=== PATIENT | female | born 1985 ===

== ENCOUNTER 2017-01-14 12:26 | Emergency (ER) | payer SELFPAY ==
[2017-01-14 16:13] LABS: Hematocrit 43 % (35-47); Hemoglobin 14.5 g/dl (12.0-16.0); Mean Corpuscular HGB Conc 34 g/dl (31-36); Mean Corpuscular Hemoglobin 29 pg (27-31); Mean Corpuscular Volume 87 fL (80-97); Mean Platelet Volume 8 um3 (7.4-10.4); Red Blood Count 4.97 10^6/ul (4.0-5.4); Red Cell Distribution Width 13 % (10.5-15)
[2017-01-14 16:20] LABS: BUN/Creatinine Ratio 15.4 (8-20); Calcium 9.6 mg/dL (8.6-10.3); EGFR African American 138.6 (>60); EGFR Non-African American 107.8 (>60); Potassium 3.8 mmol/L (3.5-5.0)
[2017-01-14] MEDS ORDERED: Ondansetron INJ* 2 MG/ML VIAL IV ONE (16:41)
[2017-01-14] MEDS ORDERED: NS 0.9% 1000 ML* 1,000 ML IV ONE (16:42)
[2017-01-14] MEDS ORDERED: Acetaminophen TAB* 325 MG PO ONE (16:42)
--- NOTE | 2017-01-14 16:51 | ED ---
- HPI Summary HPI Summary: 31 female presents complaining of lower abdominal/pelvic pain and vaginal bleeding that began yesterday 01/13/17 around 4pm. Patient speaks Pashto however has an bilingual operator with her. The bleeding began as drops and has progressed into heavier bleeding where she is soaking through a pad every hour. Patient denies seeing any clots or tissue. Just describes it as bright red blood. Describes the abdominal pain to be lower supra-pubic cramping, similar to contractions. Has not taken anything for the pain. Has a history of 2 prior miscarriages. Her LMP was 11/01/16. She took ~5 at-home tests that were all positive within the last few weeks/month. She does not have an OBGYN and has not established Obgyn care. Also complaining of lightheadedness and nausea. Pain is about a 5/10. Last miscarriage was ~4 months ago however she did not seek care at this time. - History of Current Complaint Chief Complaint: EDVaginalBleeding Stated Complaint: POSSIBLE 2 MONTHS PREG , ABD PAIN, Time Seen by Provider: 01/14/17 16:24 Hx Obtained From: Patient, Case Manager - friend of patient Chief Complaint: Pain, Vaginal Bleeding Onset/Duration: Started Hours Ago - around 1600 on 01/13/17 Timing: Constant Severity: Moderate Current Severity: Moderate Pain Intensity: 5 Location of Pain: Suprapubic Character: Cramping Associated Signs and Symptoms: Positive: Nausea, Vaginal Bleeding or Discharge - Assessment Hx Now: No - Beta Quant HCG was negative Vaginal Bleeding Amount: Large Hx Last Menstrual Period: 11/01/16 Contraction Intensity: Moderate Contraction Pattern: Regular - Allergies/Home Medications Allergies/Adverse Reactions: Allergies Allergy/AdvReac Type Severity Reaction Status Date / Time No Known Allergies Allergy Verified 06/13/13 18:35 PMH/Surg Hx/FS Hx/Imm Hx Endocrine/Hematology History: Denies: Hx Diabetes, Hx Anemia Cardiovascular History: Denies: Hx Hypertension Respiratory History: Denies: Hx Asthma - Surgical History Surgery Procedure, Year, and Place: abd surgery Infectious Disease History: No Infectious Disease History: Denies: Hx Clostridium Difficile, History Other Infectious Disease, Traveled Outside the [place] in Last 30 Days - Family History Known Family History: Positive: Unknown - Social History Substance Use Type: Reports: None Smoking Status (MU): Never Smoked Tobacco Review of Systems Constitutional: Negative Eyes: Negative ENT: Negative Cardiovascular: Negative Respiratory: Negative Positive: Abdominal Pain, Nausea Positive: see HPI, other - vaginal bleeding Musculoskeletal: Negative Skin: Negative Neurological: Other - lightheadedness Psychological: Normal All Other Systems Reviewed And Are Negative: Yes Physical Exam - Physical Exam Triage Information Reviewed: Yes Vital Signs Reviewed: Yes Appearance: Positive: Well-Appearing, No Pain Distress, Well-Nourished Skin: Positive: Warm, Skin Color Reflects Adequate Perfusion, Dry Head/Face: Positive: Normal Head/Face Inspection Eyes: Positive: Normal, EOMI, DIOGO, Conjunctiva Clear ENT: Positive: Hearing grossly normal Dental: Negative: Cervical Lymphadenopathy Neck: Positive: Supple, Nontender, No Lymphadenopathy Respiratory/Lung Sounds: Positive: Clear to Auscultation, Breath Sounds Present Cardiovascular: Positive: Normal, RRR, Pulses are Symmetrical in both Upper and Lower Extremities Abdomen Description: Positive: No Organomegaly, Soft, Other: - discomfort on deep palpation of lower abdomen, suprapubic. Negative: Distended, Guarding, Peritoneal Signs Bowel Sounds: Positive: Present Musculoskeletal: Positive: Normal, Strength/ROM Intact Neurological: Positive: Normal, Sensory/Motor Intact, Alert, Oriented to Person Place, Time, CN Intact II-III Psychiatric: Positive: Normal Diagnostics - Vital Signs Vital Signs Temp Pulse Resp BP Pulse Ox 01/14/17 14:49 98.3 F 67 18 116/80 100 01/14/17 12:29 98.7 F 65 16 103/52 100 - Laboratory Lab Results: Lab Results 01/14/17 01/14/17 Range/Units 15:55 15:55 WBC 12.0 H (3.5-10.8) 10^3/ul RBC 4.97 (4.0-5.4) 10^6/ul Hgb 14.5 (12.0-16.0) g/dl Hct 43 (35-47) % MCV 87 (80-97) fL MCH 29 (27-31) pg MCHC 34 (31-36) g/dl RDW 13 (10.5-15) % Plt Count 403 (150-450) 10^3/ul MPV 8 (7.4-10.4) um3 Sodium 136 (133-145) mmol/L Potassium 3.8 (3.5-5.0) mmol/L Chloride 102 (101-111) mmol/L Carbon Dioxide 29 (22-32) mmol/L Anion Gap 5 (2-11) mmol/L BUN 10 (6-24) mg/dL Creatinine 0.65 (0.51-0.95) mg/dL Est GFR ( Amer) 138.6 (>60) Est GFR (Non-Af Amer) 107.8 (>60) BUN/Creatinine Ratio 15.4 (8-20) Glucose 93 (70-100) mg/dL Calcium 9.6 (8.6-10.3) mg/dL Beta HCG, Quant 0.75 mIU/mL Result Diagrams: 01/14/17 15:55 01/14/17 15:55 Lab Statement: Any lab studies that have been ordered have been reviewed, and results considered in the medical decision making process. - Ultrasound No standard instances Ultrasound Interpretation: No Acute Changes - NO INTRAUTERINE GESTATION IS IDENTIFIED AND THEREFORE IN THE SETTING OF A POSITIVE TEST ECTOPIC IS NOT EXCLUDED. THERE IS NO ADNEXAL MASS IDENTIFIED. SUGGEST CORRELATION WITH SERIAL BETA HCGS AND FOLLOW-UP ULTRASONOGRAPHY INDICATED Ultrasound Interpretation Completed By: Radiologist Re-Evaluation - Re-Evaluation First Eval Re-Evaluation Time: 16:50 Change: Improved Comment: feeling better after fluids, tylenol and zofran Course/Dx - Course Course Of Treatment: lab work, type and screen, beta HCG quant and pelvic exam completed. US was negative for fetus. HCG quant was negative. type + blood. given fluids, tylenol and zofran for pain, nausea and lightheadedness. patient had significant improvement of all symptoms after treatment. Patient's last miscarriage was approximately 4 months ago. OBGYN was consulted Dr Hurd who states she beleives this is just her menstrual cycle and she was never pregnacnt due to her negative HCG and US. Upon obtaining history of 5 positive tests, LMP 11/01/16 and PE findings spontaneous is not completely ruled out however, treatment will be the same. told to continue taking OTC pain releivers, and drink plenty of fluids. also told to eat foods containing iron and to follow up with PCP or obgyn. aware of worseing signs and symptoms to watch out for. - Differential Diagnosis/HQI/PQRI: Spontaneous , Vaginal Bleeding, Other: - menses - Diagnoses Provider Diagnoses: Vaginal bleeding, Menses, irregular, Miscarriage within last 12 months - Provider Notifications Discussed Care Of Patient With: Dr Hurd, OBGYN states this is probably just her menses due to negative hcg quant and us to follow up with obgyn Time Discussed With Above Provider: 19:10 Discharge - Discharge Plan Condition: Stable Disposition: HOME Patient Education Materials: Miscarriage (ED), Menstruation (ED) Referrals: Ashleigh Aranda PA [Primary Care Provider] - Additional Instructions: Take OTC Tylenol, Ibuprofen or Aleve to help with the cramps and abdominal pain. Drink plenty of fluids and eat lots of food with iron such as red meat and leafy greens. If new symptoms develop or symptoms worsen such as heavy bleeding, feeling lightheaded, passing out or feeling sick please seek medical attention promptly. Follow-up with OBGYN for further evaluation is recommended. Physical Exam - Physical Exam Pelvic Exam: external exam normal, no masses, active bleeding - coming from cervical os
--- NOTE | 2017-01-14 17:46 | RAD ---
INDICATION: 10 week gestation with bleeding COMPARISON: None TECHNIQUE: Transvaginal scanning of the pelvis was performed for evaluation FINDINGS: There is no sonographically identifiable intrauterine gestation. The endometrial stripe measures 0.5 cm Both adnexa appear normal. There is no adnexal mass. The right ovary measures 3.2 x 2.0 x 1.6 cm and the left 3.6 x 1.6 x 1.8 cm. There is no free fluid. IMPRESSION: NO INTRAUTERINE GESTATION IS IDENTIFIED AND THEREFORE IN THE SETTING OF A POSITIVE TEST ECTOPIC IS NOT EXCLUDED. THERE IS NO ADNEXAL MASS IDENTIFIED. SUGGEST CORRELATION WITH SERIAL BETA HCGS AND FOLLOW-UP ULTRASONOGRAPHY INDICATED
[2017-01-14 19:36] VITALS: BP 110/78
== END 2017-01-14 19:35 | disposition home or self-care (01) ==
LOC: ED 12:26
DX: N93.8 Other specified abnormal uterine and vaginal bleeding (principal)
CPT/HCPCS: 36415; 76817; 80048; 84702; 85027; 86850; 86900; 86901; 96360; 96374; 99284; A9270-GY; J2405

== ENCOUNTER 2017-06-11 05:24 | Inpatient (IN) | payer MEDICAID ==
[2017-06-11] MEDS ORDERED: NS 0.9% 1000 ML* 1,000 ML IV ONE (05:35)
[2017-06-11] MEDS ORDERED: Ondansetron INJ* 2 MG/ML VIAL IV ONE ×2 (05:35→08:48)
[2017-06-11 06:02] LABS: Hematocrit 38 % (35-47); Hemoglobin 13.2 g/dl (12.0-16.0); Mean Corpuscular HGB Conc 35 g/dl (31-36); Mean Corpuscular Hemoglobin 31 pg (27-31); Mean Corpuscular Volume 88 fL (80-97); Mean Platelet Volume 8 um3 (7.4-10.4); Red Blood Count 4.31 10^6/ul (4.0-5.4); Red Cell Distribution Width 13 % (10.5-15); White Blood Count 12.7 10^3/ul (3.5-10.8)
--- NOTE | 2017-06-11 06:04 | ED ---
Giovanni Douglass Salem, scribed for Fito Londono MD on 06/11/17 at 0544 . Abdominal Pain/Female - HPI Summary HPI Summary: Patient is a 31 y/o F who presents to the ED with upper abdominal pain for the past 3 days (increasingly worse since onset). She states that she was seen at [facility] twice since onset of pain (3 days ago and yesterday). Pt reports that she was prescribed Percocet and told there was a virus associated with her . She is approximately 10 weeks . Pt also states that she has had two miscarriages in the recent past, but has not seen an EXCEPTIONAL CHILDREN TEACHER ASSISTANT because of issues with her insurance. She also has not seen OB/ CHEF PASSENGER VESSEL since current . - History of Current Complaint Chief Complaint: EDAbdPain Stated Complaint: UPPER ABD PAIN//10 WEEKS Time Seen by Provider: 06/11/17 05:35 Hx Obtained From: Patient, Family/Wool Presser Onset/Duration: Gradual Onset, Lasting Days, Still Present, Worse Since Timing: Days Severity Initially: Moderate Severity Currently: Moderate Pain Intensity: 10 Pain Scale Used: 0-10 Numeric Location: Diffuse Radiates: Yes Radiates to: Back Aggravating Factor(s): Nothing Alleviating Factor(s): Nothing Associated Signs and Symptoms: Positive: Negative Allergies/Adverse Reactions: Allergies Allergy/AdvReac Type Severity Reaction Status Date / Time No Known Allergies Allergy Verified 06/11/17 05:37 Home Medications: Home Medications Hydrocodone-Acetaminophen [Hydrocodone/Acetaminophen 5-325 mg] 1 tab PO Q4HR PRN 06/11/17 [History Confirmed 06/11/17] PMH/Surg Hx/FS Hx/Imm Hx Endocrine/Hematology History: Denies: Hx Diabetes, Hx Anemia Cardiovascular History: Denies: Hx Hypertension Respiratory History: Denies: Hx Asthma - Surgical History Surgery Procedure, Year, and Place: abd surgery Infectious Disease History: Denies: Hx Clostridium Difficile, History Other Infectious Disease, Traveled Outside the [place] in Last 30 Days - Family History Known Family History: Positive: Diabetes, Other - No CA. Negative: Hypertension - Social History Alcohol Use: None Hx Substance Use: No Substance Use Type: Reports: None Hx Tobacco Use: No Smoking Status (MU): Never Smoked Tobacco Review of Systems Negative: Fever Positive: Abdominal Pain All Other Systems Reviewed And Are Negative: Yes Physical Exam Triage Information Reviewed: Yes Vital Signs On Initial Exam: Initial Vitals Temp Pulse Resp BP Pulse Ox 98.5 F 88 18 117/77 99 06/11/17 05:28 06/11/17 05:28 06/11/17 05:28 06/11/17 05:28 06/11/17 05:28 Vital Signs Reviewed: Yes Appearance: Positive: Well-Appearing, Pain Distress - mild discomfort Skin: Positive: Warm Head/Face: Positive: Normal Head/Face Inspection Eyes: Positive: DIOGO ENT: Positive: Hearing grossly normal Neck: Positive: Supple Respiratory/Lung Sounds: Positive: Breath Sounds Present Cardiovascular: Positive: RRR Abdomen Description: Positive: Soft, Other: - mild mid epigastric tenderness. Negative: CVA Tenderness (R), CVA Tenderness (L), Distended, Guarding Bowel Sounds: Positive: Present Musculoskeletal: Positive: Strength/ROM Intact Neurological: Positive: Alert, Oriented to Person Place, Time Diagnostics - Vital Signs Vital Signs Temp Pulse Resp BP Pulse Ox 06/11/17 05:28 98.5 F 88 18 117/77 99 - Laboratory Result Diagrams: 06/11/17 05:50 06/11/17 05:50 Lab Statement: Any lab studies that have been ordered have been reviewed, and results considered in the medical decision making process. Re-Evaluation - Re-Evaluation First Eval Re-Evaluation Time: 07:43 - PATIENT IS FEELING BETTER Second Eval Re-Evaluation Time: 11:06 - patient reports more pain Abdominal Pain Fem Course/Dx - Course Course Of Treatment: 31 y/o F presents with abdominal pain for the past 3 days ( increasingly worse since onset). She states that she was seen at [facility] twice since onset of pain (3 days ago and yesterday). Pt reports that she was prescribed Percocet and told there was a virus associated with her . She is approximately 10 weeks . Pt received fluids and Zofran in ED course. Records were requested from [facility]. Per records, pt had an US taken that showed 10m 1day IUP . Pt will be signed out at shift change. - Diagnoses Provider Diagnoses: Epigastric pain - Provider Notifications Instructed by Provider To: Admit As Inpatient Discharge - Discharge Plan Condition: Fair Disposition: ADMITTED TO [facility] Discharge Disposition Comment: Sign out to Dr. Obrien at shift change. The documentation as recorded by the naveedibGiovanni gonzalez Salem accurately reflects the service I personally performed and the decisions made by me, Fito Londono MD.
[2017-06-11 06:20] LABS: BUN/Creatinine Ratio 11.5 (8-20); C Reactive Protein 2.39 mg/L (< 5.00); EGFR African American 179.3 (>60); EGFR Non-African American 139.4 (>60); Globulin 3.4 g/dL (2-4); Magnesium 1.9 mg/dL (1.9-2.7); Potassium 3.2 mmol/L (3.5-5.0); Total Bilirubin 0.9 mg/dL (0.2-1.0); Total Protein 7.4 g/dL (6.4-8.9)
[2017-06-11] MEDS ORDERED: Lidocaine 2% VISCOUS* 15 ML UDC PO ONE (06:48)
[2017-06-11] MEDS ORDERED: Al Hydrox/Mg Hydrox/Simet LIQ* 30 ML UDC PO ONE (06:48)
[2017-06-11] MEDS ORDERED: Potassium Chlor TAB* 20 MEQ TAB.ER PO ONE (07:13)
[2017-06-11 07:27] LABS: Urine Bilirubin Negative (Negative); Urine Glucose Negative (Negative); Urine Nitrite Negative (Negative)
[2017-06-11] MEDS ORDERED: Morphine INJ* 4 MG/ML 1 ML SYRINGE IV ONE (08:48)
[2017-06-11] MEDS ORDERED: Pantoprazole TAB (NF) 40 MG TAB PO ONE (09:28)
[2017-06-11] MEDS ORDERED: Famotidine TAB* 20 MG PO ONE (09:28)
[2017-06-11] MEDS ORDERED: Pantoprazole IV* 40 MG ONE (09:32)
[2017-06-11] MEDS ORDERED: Pantoprazole IV* 40 MG IV ONE (09:35)
--- NOTE | 2017-06-11 12:42 | HP ---
H&P (Free Text) History and Physical: CC: epigastric pain HPI: Pt is 10wks and c/o sharp upper abd pain for the past 4 days. She hasn't been eating or drinking anything due to the pain. +n/v. She had minimal n/v for about the past 2 mo but has been able to keep some food down and did not have any pain. She says the pain is worst in the middle but wraps around to both sides and into her back. She was seen twice in [place] ED and sent home so she came here. She received a GI cocktail with minimal temporary improvement in the pain. She denies any lower abd cramping or vaginal bleeding. She has not had any care for her yet because she has not been able to get insurance. She says she made an appt with someone in [place] but couldn't get in jun. ROS: otherwise neg Meds: none currently Allergies: NKDA PMH: Denies [employer] Specialist Hx: , 10wks by thania at [place] ED, denies complications with prior pregnancies, Delivered in [place] with Dr. Boyer Soc Hx: Denies Tobacco, alcohol or illicit drug use PE: Gen: mild painful distress Abd: soft, mild epigastic tenderness, no lower abd tenderness A/P: Pt is 10wks with suspected gastritis, no concerns. Discussed f/u care for her . Further management of the gastritis per hospitalist and ED team. Please contact Ob with further concerns related to the .
[2017-06-11] MEDS: Ondansetron INJ* 2 MG/ML VIAL IV PRN ×2 (14:45→20:08)
[2017-06-11] MEDS: NS 0.9% w/ 20 Meq KCL 1000 ML* 1,000 ML IV SCH (14:45)
[2017-06-11] MEDS: Morphine INJ* 4 MG/ML 1 ML SYRINGE IV PRN ×2 (16:23→23:40)
--- NOTE | 2017-06-11 18:50 | ED ---
Adriana Douglass Auryana, scribed for Juve Obrien MD on 06/11/17 at 0735 . Progress - Progress Note Progress Note: Sign out from Dr. Londono to Dr. Obrien at 07:00 for further management of symptoms. 31 year old female presents with epigastric abdominal pain, nausea and vomiting since last Tuesday. Patient was seen at [facility] and given medications - no improvement of pain. Currently the pain is a 10/10. Patient just received a GI cocktail and will recheck for improvement of pain. Patient is 10 weeks - LMP 03/28/17- . I discussed the risk and benefits of giving any type of narcotics. She understands and agrees. VITAL SIGNS: Reviewed. GENERAL: Patient is a well-developed and nourished female who is lying comfortable in the stretcher. Patient is not in any acute respiratory distress. HEAD AND FACE: Normocephalic and atraumatic. EYES: PERRLA, EOMI x 2, No injected conjunctiva. EARS: Hearing grossly intact. Ear canals and tympanic membranes are WNL. MOUTH: Oropharynx within normal limits. NECK: Supple, trachea is midline, no adenopathy, no JVD. CHEST: Symmetric, no tenderness at palpation LUNGS: Clear to auscultation bilaterally. No wheezing or crackles. CVS: RRR, S1 and S2 present, no murmurs or gallops appreciated. ABDOMEN: Soft. Epigastric tenderness. No signs of distention. Positive bowel sounds. No rebound no guarding, and no masses palpated. No abdominal bruit or pulsations. EXTREMITIES: FROM in all major joints, no edema, no cyanosis or clubbing. NEURO: Alert and oriented x 3. No acute neurological deficits. Speech is normal. SKIN: Dry and warm - Additional EKG/XRAY/Consults Consult/PCP: Dr. Karli Cobb Reason/Comments: recommends medical evaluation here in ED and will also see patient in ED Time Called: 08:42 Re-Evaluation - Re-Evaluation First Eval Re-Evaluation Time: 07:43 - PATIENT IS FEELING BETTER Second Eval Re-Evaluation Time: 11:06 - patient reports more pain Course/Dx - Course Course Of Treatment: Sign out from Dr. Londono to Dr. Obrien at 07:00 for further management of symptoms. 31 year old female presents with epigastric abdominal pain, nausea and vomiting since last Tuesday. Patient was seen at [facility] and given medications - no improvement of pain. Currently the pain is a 10/10. Patient just received a GI cocktail and will recheck for improvement of pain. Patient is 10 weeks - LMP 03/28/17 - . I discussed the risk and benefits of giving any type of narcotics. She understands and agrees. Test results show WBC 12.7, potassium 3.2 for which she was given potassium chloride. UA negative for U.T.I. In ED course, she was given a GI cocktail by Dr. Londono. I gave pat Protonix and Pepcid. However , patient still has pain, therefore she was given 1 dose morphine. At this point , I discussed the case with Dr. Cobb, who came and evaluated the patient here in the ED. Dr. Cobb recommended admission to our medical services. Patient continued to have more pain and therefore given more morphine. I discussed the case with Dr. Sanchez who accepted the patient for admission. Patient is hemodynamically stable and A&Ox3 - Diagnoses Provider Diagnoses: Epigastric pain - Provider Notifications Discussed Care Of Patient With: Bi Sanchez Time Discussed With Above Provider: 08:55 Instructed by Provider To: Will See In ED - TO EVALUATE FOR ADMISSION The documentation as recorded by the Adriana pina Auryana accurately reflects the service I personally performed and the decisions made by me, Juve Obrien MD.
[2017-06-11] MEDS: Sucralfate TAB* 1 GM PO PRN (20:15)
[2017-06-11] MEDS: Acetaminophen TAB* 325 MG PO PRN (20:44)
[2017-06-11] MEDS: Al Hydrox/Mg Hydrox/Simet LIQ* 30 ML UDC PO PRN (20:44)
--- NOTE | 2017-06-11 22:43 | HP ---
CC: CHACHA Sosa; Karli Cobb MD, OB-MEDICAL ASSISTANT INTERNAL MEDICINE * HISTORY AND PHYSICAL: DATE OF ADMISSION: 06/11/17 CHIEF COMPLAINT: Abdominal pain. HISTORY OF PRESENT ILLNESS: The patient is a 31-year-old woman with 2 recent visits to [facility] and who is 10 weeks comes in with a complaint of abdominal pain and intractable nausea and vomiting. The patient herself denies taking any acidic foods. She does drink some coffee sometimes and has tomatoes. She says the pain is in the center of her belly and is constant. At its worst, it is 10/10 in severity. She has nausea, vomiting and has not been able to keep anything down. She has received GI cocktail, Zofran, and narcotics for the pain with little to no resolution. There is a question as to whether or not she has received a PPI or Pepcid yet. The pain is noted as constant. There is no radiation of it. She was completely asymptomatic before this Tuesday. She has had no fever, but she has had chills. The pain is not a burning pain and is in the center of her abdomen. Patient did have an abdominal ultrasound done at [facility], which showed no cholecystitis, but that is to be suspected as the patient already had a cholecystectomy. It was otherwise within normal limits. PAST MEDICAL HISTORY: Significant for 8 para 4. She has had a cholecystectomy, but no other medical problems. MEDICATIONS: Her only medications are the narcotics she received upon her visits to [facility]. She is not currently on a vitamin as she is not receiving any care at this time due to insurance problems. ALLERGIES: She has no known drug allergies. FAMILY HISTORY: Mother is alive at 60, with diabetes. Father is alive at 75, has emphysema. SOCIAL HISTORY: No tobacco, alcohol or recreational drug use. 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 She is with 4 children. REVIEW OF SYSTEMS: A 14-point review of systems was completed with the patient as best as possible. All pertinent positives and negatives are in the history of present illness, otherwise it is negative. PHYSICAL EXAMINATION GENERAL: A pleasant woman, lying in bed, in no acute distress VITAL SIGNS: Temperature 99 degrees, heart rate 81 beats per minute, respiratory rate 20 breaths per minute, pulse ox 100% on room air, blood pressure 130/71. HEENT: Normocephalic, atraumatic. Pupils equal, round, and reactive to light. Moist mucous membranes. NECK: Supple. No JVD, bruits, palpable thyroid or lymphadenopathy. CHEST: Clear to auscultation and percussion bilaterally. CARDIOVASCULAR: S1, S2 appreciated. ABDOMEN: Positive bowel sounds in all 4 quadrants. Soft, it is nontender. EXTREMITIES: No cyanosis, clubbing or edema. +2 peripheral pulses bilaterally. NEUROLOGIC: Alert and oriented x3. Moves all extremities. SKIN: No rashes or abnormalities. LABORATORY DATA AND DIAGNOSTIC STUDIES: White count 12.7, hemoglobin 13.2, hematocrit 38, platelets are 371. Sodium is 131, potassium 3.2, chloride 101, CO2 20, BUN 6, creatinine 0.52, glucose is 90. AST 10, ALT 13, total bili is 0.9, alk phos is 56. Urinalysis is unremarkable except for +2 ketones. ASSESSMENT AND PLAN: 1. Abdominal pain. I think it is likely either reflux, which is common in at anytime or even gastritis. I will obviously not get CT of the patient as she is 10 weeks . I will give her Maalox, Zofran, Protonix, and tylenol p.r.n. for pain. I will place her on a clear liquid diet. OB-MEDICAL ASSISTANT INTERNAL MEDICINE will be available for consult. If no improvement, may get GI's input. 2. FEN. Clear liquid diet as noted and normal saline with 10 mEq of K at the rate of 100 mL cc hour. 3. DVT prophylaxis, none. Encouraged the patient to ambulate. 4. The patient is a full code. TIME SPENT: Over 75 minutes were spent on this H and P, more than 40 minutes of which was spent in direct [id number] contact with the patient in evaluation , physical exam, counseling, and coordination of care. [id number]/[facility] #: [id number] [place]
[2017-06-12] MEDS: PROCHLORPERAZINE INJ 5 MG/ML 2 ML VIAL IV PRN ×2 (00:34→06:30)
[2017-06-12] MEDS: Al Hydrox/Mg Hydrox/Simet LIQ* 30 ML UDC PO PRN ×5 (00:46→23:05)
[2017-06-12] MEDS: NS 0.9% w/ 20 Meq KCL 1000 ML* 1,000 ML IV SCH ×3 (01:05→22:33)
[2017-06-12] MEDS: Ondansetron INJ* 2 MG/ML VIAL IV PRN (03:20)
[2017-06-12] MEDS: Prenatal Vitamin TAB PO SCH (10:02)
[2017-06-12] MEDS: Acetaminophen TAB* 325 MG PO PRN (10:02)
[2017-06-12] MEDS: Morphine INJ* 4 MG/ML 1 ML SYRINGE IV PRN (11:07)
[2017-06-12 12:47] LABS: Hematocrit 37 % (35-47); Hemoglobin 12.4 g/dl (12.0-16.0); Mean Corpuscular HGB Conc 33 g/dl (31-36); Mean Corpuscular Hemoglobin 30 pg (27-31); Mean Corpuscular Volume 90 fL (80-97); Mean Platelet Volume 8 um3 (7.4-10.4); Red Blood Count 4.13 10^6/ul (4.0-5.4); Red Cell Distribution Width 12 % (10.5-15); White Blood Count 12.2 10^3/ul (3.5-10.8)
[2017-06-12 12:57] LABS: BUN/Creatinine Ratio 11.6 (8-20); Calcium 8.3 mg/dL (8.6-10.3); EGFR African American 223.3 (>60); EGFR Non-African American 173.6 (>60)
--- NOTE | 2017-06-12 16:29 | PN ---
Subjective Date of Service: 06/12/17 Interval History: Pt reports she hasnt vomited since this am but continues to feel very nauseous - no fever or chills. Reports epigastric tenderness. No lower abd pain. No vaginal bleeding/discharge. Does not feel like she can go home yet. Objective Active Medications: Acetaminophen (Tylenol Tab*) 650 mg PO Q4H PRN PRN Reason: FEVER/HEADACHE Last Admin: 06/12/17 10:02 Dose: 650 mg Al Hydrox/Mg Hydrox/Simethicone (Maalox Plus*) 30 ml PO Q4H PRN PRN Reason: HEARTBURN Last Admin: 06/12/17 10:06 Dose: 30 ml Potassium Chloride/Sodium Chloride (Ns 0.9% W/ 20 Meq Kcl 1000 Ml*) 1,000 mls @ 100 mls/hr IV PER RATE [facility] Last Admin: 06/12/17 12:26 Dose: 100 mls/hr Morphine Sulfate (Morphine Inj (Syringe)*) 4 mg IV Q4H PRN PRN Reason: PAIN Last Admin: 06/12/17 11:07 Dose: 4 mg Multivitamins ( Vitamin Tab*) 1 tab PO DAILY [facility] Last Admin: 06/12/17 10:02 Dose: 1 tab Ondansetron HCl (Zofran Inj*) 4 mg IV Q4H PRN PRN Reason: NAUSEA Last Admin: 06/12/17 03:20 Dose: 4 mg Prochlorperazine Edisylate (Compazine Inj*) 5 mg IV Q6H PRN PRN Reason: NAUSEA UNRELIEVED BY: ZOFRAN Last Admin: 06/12/17 06:30 Dose: 5 mg Sucralfate (Carafate*) 1 gm PO BID PRN PRN Reason: HEARTBURN Last Admin: 06/11/17 20:15 Dose: 1 gm Oxygen Devices in Use Now: None Appearance: healthy appearing 31 yo female sitting up in bed, appears mildly ill. A+O x3 in NAD Eyes: No Scleral Icterus, PERRLA Ears/Nose/Mouth/Throat: NL Teeth, Lips, Gums, Mucous Membranes Moist Neck: NL Appearance and Movements; NL JVP Respiratory: Symmetrical Chest Expansion and Respiratory Effort, Clear to Auscultation Cardiovascular: NL Sounds; No Murmurs; No JVD, RRR, No Edema Abdominal: - - epigastric tenderness, mild - no noted lower abd pain/ tenderness. Extremities: No Edema Skin: No Rash or Ulcers, No Nodules or Sclerosis Neurological: Alert and Oriented x 3, NL Sensation, NL Gait, NL Muscle Strength and Tone Lines/Tubes/Other Access: Clean, Dry and Intact Peripheral IV Nutrition: Taking PO's Result Diagrams: 06/12/17 12:32 06/12/17 12:32 Assess/Plan/Problems-Billing Assessment: 31 yo female with no significant PMH , who is 8 para 4, who is currently 10 weeks who presented 06/11 with abdominal pain and intractable nausea & vomiting - Patient Problems (1) Abdominal pain Comment: - suspect viral gastritis reports epigastric discomfort. No vaginal bleeding. Clinically improving, continues to have significant nausea though - Hyponatremia - secondary to vomiting - Continue IVF, anti-emetics, clear liquid diet (2) DVT prophylaxis Comment: low risk, encourage ambulation (3) Full code status Status and Disposition: inpatient with intractable N/V; most likely home tomorrow.
[2017-06-13] MEDS: Sucralfate TAB* 1 GM PO PRN (00:08)
[2017-06-13] MEDS ORDERED: Morphine INJ* 2 MG/ML 1 ML SYRINGE IV ONE (00:55)
[2017-06-13] MEDS: Acetaminophen TAB* 325 MG PO PRN ×2 (03:50→08:53)
[2017-06-13] MEDS ORDERED: Morphine INJ* 4 MG/ML 1 ML SYRINGE IV ONE (05:35)
[2017-06-13] MEDS ORDERED: Morphine INJ* 4 MG/ML 1 ML SYRINGE ONE (05:40)
[2017-06-13 07:01] LABS: Hematocrit 38 % (35-47); Hemoglobin 12.5 g/dl (12.0-16.0); Mean Corpuscular HGB Conc 33 g/dl (31-36); Mean Corpuscular Hemoglobin 30 pg (27-31); Mean Corpuscular Volume 90 fL (80-97); Mean Platelet Volume 8 um3 (7.4-10.4); Red Blood Count 4.19 10^6/ul (4.0-5.4); Red Cell Distribution Width 13 % (10.5-15); White Blood Count 12.3 10^3/ul (3.5-10.8)
[2017-06-13 07:19] LABS: Calcium 8.1 mg/dL (8.6-10.3); EGFR African American 242.7 (>60); EGFR Non-African American 188.7 (>60); Potassium 3.6 mmol/L (3.5-5.0)
[2017-06-13] MEDS: Prenatal Vitamin TAB PO SCH (08:53)
[2017-06-13] MEDS: Al Hydrox/Mg Hydrox/Simet LIQ* 30 ML UDC PO PRN (11:25)
[2017-06-13] MEDS: NS 0.9% w/ 20 Meq KCL 1000 ML* 1,000 ML IV SCH ×2 (11:26→23:40)
[2017-06-13] MEDS ORDERED: Morphine INJ* 4 MG/ML 1 ML SYRINGE IV PRN (14:07)
--- NOTE | 2017-06-13 14:12 | PN ---
Subjective Date of Service: 06/13/17 Interval History: Patient seen and examined at bedside. Pt's primary language is [place] and a friend is used as an deaf interpreter. Denies fever, shortness of breath, chest discomfort, diarrhea. Pt states that she has not moved her bowels in 5 days. Reports chills and epigastric pain that radiates to the left and right. Pt has a poor appetite and nausea. Last vomiting overnight. Family History: Unchanged from Admission Social History: Unchanged from Admission Past Medical History: Unchanged from Admission Objective Active Medications: Acetaminophen (Tylenol Tab*) 650 mg PO Q4H PRN Reason: FEVER/HEADACHE Al Hydrox/Mg Hydrox/Simethicone (Maalox Plus*) 30 ml PO Q4H PRN Reason: HEARTBURN Potassium Chloride/Sodium Chloride (Ns 0.9% W/ 20 Meq Kcl 1000 Ml*) 1,000 mls @ 100 mls/hr IV PER RATE [facility] Morphine Sulfate (Morphine Inj (Syringe)*) 4 mg IV Q4H PRN Reason: PAIN Multivitamins ( Vitamin Tab*) 1 tab PO DAILY [facility] Ondansetron HCl (Zofran Inj*) 4 mg IV Q4H PRN Reason: NAUSEA Prochlorperazine Edisylate (Compazine Inj*) 5 mg IV Q6H PRN Reason: NAUSEA UNRELIEVED BY: ZOFRAN Sucralfate (Carafate*) 1 gm PO BID PRN Reason: HEARTBURN Vital Signs 06/12/17 06/12/17 06/13/17 19:15 20:00 00:09 Temperature 98.5 F 98.6 F Pulse Rate 63 85 Respiratory 18 1 16 Rate Blood Pressure 107/66 122/70 (mmHg) O2 Sat by Pulse 100 99 Oximetry 06/13/17 06/13/17 06/13/17 05:12 05:13 05:45 Temperature 98.8 F Pulse Rate 70 Respiratory 16 14 Rate Blood Pressure 122/70 (mmHg) O2 Sat by Pulse 99 Oximetry 06/13/17 06/13/17 06/13/17 06:45 07:52 09:53 Temperature 98.3 F Pulse Rate 69 Respiratory 16 16 16 Rate Blood Pressure 124/75 (mmHg) O2 Sat by Pulse 100 Oximetry Oxygen Devices in Use Now: None Appearance: Mildly ill appearing, laying in bed Ears/Nose/Mouth/Throat: Mucous Membranes Moist Respiratory: Symmetrical Chest Expansion and Respiratory Effort, Clear to Auscultation Cardiovascular: NL Sounds; No Murmurs; No JVD, RRR Abdominal: - - Bowel sounds present, tenderness to right and left LQ and epigastric area, positive Rovsing's sign Extremities: No Edema Skin: No Rash or Ulcers Neurological: Alert and Oriented x 3, NL Muscle Strength and Tone Lines/Tubes/Other Access: Clean, Dry and Intact Peripheral IV - site benign Result Diagrams: 06/13/17 06:33 06/13/17 06:33 Assess/Plan/Problems-Billing Assessment: Ms. Pedro Childress is a 31 yo female with no significant PMH , who is 8 para 4, who is currently 10 weeks who presented 06/11 with abdominal pain and intractable nausea & vomiting. - Patient Problems (1) Abdominal pain Code(s): R10.9 - UNSPECIFIED ABDOMINAL PAIN SNOMED Code(s): 67538630 Comment: - Suspect viral gastritis reports epigastric discomfort. No vaginal bleeding. - Continues to have significant nausea and now with diffuse abdominal tenderness and pain - Hyponatremia - secondary to vomiting - Will check ABD ultrasound to eval appendix - Continue IVF and anti-emetics (2) Constipation Code(s): K59.00 - CONSTIPATION, UNSPECIFIED SNOMED Code(s): 50548093 Comment: - No BM in ~ 5 days, suspect this is contributing to her ABD pain - MOM PRN (3) DVT prophylaxis Code(s): UYM5964 - SNOMED Code(s): 466498648 Comment: - low risk, encourage ambulation (4) Full code status Code(s): Z78.9 - OTHER SPECIFIED HEALTH STATUS SNOMED Code(s): 425324739 Status and Disposition: Inpatient with intractable N/V; possible home tomorrow if pain and nausea improved.
[2017-06-13] MEDS: Ondansetron INJ* 2 MG/ML VIAL IV PRN ×2 (14:19→22:21)
[2017-06-13] MEDS ORDERED: Magnesium Hydroxide LIQ* 30 ML UDC PO PRN (15:11)
--- NOTE | 2017-06-13 17:53 | RAD ---
HISTORY: Right lower quadrant pain COMPARISONS: None TECHNIQUE: Multiple transverse and longitudinal ultrasound images were obtained of the right lower quadrant using grayscale and color Doppler imaging. FINDINGS: The appendix is not visualized. There is no free or loculated fluid within the right lower quadrant. IMPRESSION: THE APPENDIX IS NOT VISUALIZED. THERE IS NO FREE OR LOCULATED FLUID WITHIN THE RIGHT LOWER QUADRANT.
[2017-06-13] MEDS: Morphine INJ* 2 MG/ML 1 ML SYRINGE IV PRN (21:04)
[2017-06-14] MEDS: Morphine INJ* 2 MG/ML 1 ML SYRINGE IV PRN ×4 (03:52→20:44)
[2017-06-14] MEDS: Ondansetron INJ* 2 MG/ML VIAL IV PRN ×2 (03:52→10:27)
[2017-06-14] MEDS: PROCHLORPERAZINE INJ 5 MG/ML 2 ML VIAL IV PRN (04:29)
[2017-06-14 05:49] LABS: Hematocrit 35 % (35-47); Hemoglobin 12.2 g/dl (12.0-16.0); Mean Corpuscular HGB Conc 35 g/dl (31-36); Mean Corpuscular Hemoglobin 31 pg (27-31); Mean Corpuscular Volume 89 fL (80-97); Mean Platelet Volume 8 um3 (7.4-10.4); Red Blood Count 3.97 10^6/ul (4.0-5.4); Red Cell Distribution Width 13 % (10.5-15); White Blood Count 9.2 10^3/ul (3.5-10.8)
[2017-06-14 06:01] LABS: EGFR African American 223.3 (>60); EGFR Non-African American 173.6 (>60); Potassium 3.5 mmol/L (3.5-5.0)
[2017-06-14] MEDS: Prenatal Vitamin TAB PO SCH (08:51)
--- NOTE | 2017-06-14 09:41 | PN ---
Subjective Date of Service: 06/14/17 Interval History: Ms. Pedro Childress continues to complain of epigastric pain with nausea. The pain is worse after eating. She denies other complaint including chest pain or SOB. Family History: Unchanged from Admission Social History: Unchanged from Admission Past Medical History: Unchanged from Admission Objective Active Medications: Acetaminophen (Tylenol Tab*) 650 mg PO Q4H PRN Al Hydrox/Mg Hydrox/Simethicone (Maalox Plus*) 30 ml PO Q4H PRN Potassium Chloride/Sodium Chloride (Ns 0.9% W/ 20 Meq Kcl 1000 Ml*) 1,000 mls @ 100 mls/hr IV PER RATE [facility] Magnesium Hydroxide (Milk Of Magnesia Liq*) 30 ml PO Q6H PRN Morphine Sulfate (Morphine Inj (Syringe)*) 2 mg IV Q4H PRN Multivitamins ( Vitamin Tab*) 1 tab PO DAILY [facility] Ondansetron HCl (Zofran Inj*) 4 mg IV Q4H PRN Prochlorperazine Edisylate (Compazine Inj*) 5 mg IV Q6H PRN Sucralfate (Carafate*) 1 gm PO BID PRN Vital Signs 06/13/17 06/13/17 06/13/17 09:53 11:53 14:20 Temperature 98.1 F Pulse Rate 65 Respiratory 16 17 16 Rate Blood Pressure 115/65 (mmHg) O2 Sat by Pulse 100 Oximetry 06/13/17 06/13/17 06/13/17 15:14 15:20 19:16 Temperature 98.8 F 98.4 F Pulse Rate 70 83 Respiratory 16 16 16 Rate Blood Pressure 109/66 103/66 (mmHg) O2 Sat by Pulse 100 99 Oximetry 06/13/17 06/13/17 06/13/17 20:00 21:04 22:04 Temperature Pulse Rate Respiratory 16 16 16 Rate Blood Pressure (mmHg) O2 Sat by Pulse Oximetry 06/13/17 06/14/17 06/14/17 23:38 03:52 04:41 Temperature 97.8 F 98.1 F Pulse Rate 75 69 Respiratory 16 18 16 Rate Blood Pressure 100/59 119/61 (mmHg) O2 Sat by Pulse 98 99 Oximetry 06/14/17 06/14/17 06/14/17 04:52 07:27 08:00 Temperature 98.5 F Pulse Rate 60 Respiratory 16 16 16 Rate Blood Pressure 96/50 (mmHg) O2 Sat by Pulse 97 Oximetry Oxygen Devices in Use Now: None Appearance: Female lying in bed in NAD Eyes: No Scleral Icterus Ears/Nose/Mouth/Throat: Mucous Membranes Moist Neck: Trachea Midline Respiratory: Symmetrical Chest Expansion and Respiratory Effort, Clear to Auscultation Cardiovascular: NL Sounds; No Murmurs; No JVD, No Edema Abdominal: NL Sounds; No Tenderness; No Distention, - - Soft Lymphatic: No Cervical Adenopathy Extremities: No Edema Skin: No Rash or Ulcers Neurological: Alert and Oriented x 3, NL Muscle Strength and Tone Nutrition: Taking PO's Result Diagrams: 06/14/17 05:21 06/14/17 05:21 Assess/Plan/Problems-Billing Assessment: Ms. Pedro Childress is a 31 yo female with no significant PMH , who is 8 para 4, and is currently 10 weeks who presented 06/11/17 with abdominal pain and intractable nausea & vomiting. - Patient Problems (1) Abdominal pain Comment: - Epigastric pain worse after eating. - Suspect viral gastritis. - Abd US did not show appendix, no free fluid identified. - Continue IVF, anti-emetics and sucralfate. PPI added today. - Appreciate OB consult on admission, no indication that this is related to . (2) Constipation Comment: - Resolved. - MOM PRN. (3) DVT prophylaxis Comment: - Low risk, encourage ambulation. (4) Full code status Status and Disposition: Inpatient with intractable N/V and abd pain. Anticipate discharge to home when medically stable.
[2017-06-14] MEDS: NS 0.9% w/ 20 Meq KCL 1000 ML* 1,000 ML IV SCH ×2 (10:35→22:06)
[2017-06-14 15:45] LABS: Albumin 3.3 g/dL (3.2-5.2); Direct Bilirubin 0.1 mg/dL (0.03-0.18); Globulin 2.8 g/dL (2-4); Indirect Bilirubin 0.4 mg/dL (0.3-1.0); Total Bilirubin 0.5 mg/dL (0.2-1.0); Total Protein 6.1 g/dL (6.4-8.9)
[2017-06-14] MEDS: Omeprazole CAP* 20 MG PO SCH (20:45)
--- NOTE | 2017-06-14 22:46 | CONS ---
GASTROENTEROLOGY CONSULT: DATE: 06/14/17 CONSULTING PHYSICIANS: Neris Braun NP; Karli Cobb MD; CHACHA Palmer.* REASON FOR CONSULTATION: Epigastric pain going around to the back. HISTORY OF PRESENT ILLNESS: This 31-year-old woman originally from [facility] here in the since 2003 developed epigastric pain 6 days ago. History was taken in Kiswahili with a friend strike operations officer in attendance to monitor. She states it is an epigastric pain that gets worse with eating and then she vomits. It was a little better this morning, but after clear liquids pain came back. She states she has not had this kind of pain with prior pregnancies. She is about 10 weeks currently. The pain is midline, worsens with meals. At home, she does not take aspirin, Advil, or Aleve. She will take Tylenol. She had her gallbladder out in [place] 4 years ago. She is a nonsmoker, nondrinker. She had had a couple of emergency room visits to [place], which included the right upper quadrant ultrasound that was reported unremarkable and normal labs. Here, she has had a right lower quadrant ultrasound that did not see the appendix, but no other fluid collection either. PAST MEDICAL HISTORY: 1. Status post cholecystectomy. 2. 8, para 4. MEDICATIONS: So far in the hospital, she has received prochlorperazine, milk of magnesia, sucralfate. SOCIAL HISTORY: She is originally from [facility]. She is and has 4 children. FAMILY HISTORY: Father has emphysema. REVIEW OF SYSTEMS: There is no history of fainting, heart murmur, cardiac disease, pulmonary disease, liver problems, IV drug use, renal disease, other abdominal surgery or abdominal cancers in the family. PHYSICAL EXAM: She is an central [place] woman of ethnic background, sitting up in no overt distress with her legs tucked under her. She is afebrile. HEENT exam is unremarkable. She has no adenopathy. Her lungs are clear. Heart sounds are regular. Breast and pelvic exams deferred. The abdomen is mildly obese with normal bowel sounds, nondistended, soft and without focal tenderness, although she is sensitive in the epigastrium and to deep palpation. Rectal deferred. Extremities show no edema. Neurologic is nonfocal. DIAGNOSTIC STUDIES/LAB DATA: Today, hemoglobin 12.2, white count 9.2 (downward trend from admission 12.7). LFTs normal with CRP 3, lipase 111. IMPRESSION: This 31-year-old woman 10 weeks with epigastric pain most likely has a peptic process, most likely reflux though in [place] H. pylori is fairly common. With succeeding pregnancies, a chance of reflux would seem to be raised. 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 Twice a day dosing on an empty stomach is recommended. Although the complaint of pain radiating around to the back might suggest biliary stone with completely normal LFTs and lipase twice - 3 days apart is strongly against that. [id number]/[facility] #: [id number] [place]
[2017-06-15] MEDS: Ondansetron INJ* 2 MG/ML VIAL IV PRN ×4 (01:29→14:03)
[2017-06-15] MEDS: Morphine INJ* 2 MG/ML 1 ML SYRINGE IV PRN ×4 (01:33→14:03)
[2017-06-15] MEDS: NS 0.9% w/ 20 Meq KCL 1000 ML* 1,000 ML IV SCH ×2 (09:18→21:43)
[2017-06-15] MEDS: Prenatal Vitamin TAB PO SCH (09:18)
[2017-06-15] MEDS: Omeprazole CAP* 20 MG PO SCH ×2 (09:18→21:31)
[2017-06-15] MEDS: Sucralfate TAB* 1 GM PO PRN (10:01)
[2017-06-15] MEDS: Acetaminophen TAB* 325 MG PO PRN (13:34)
[2017-06-15] MEDS: Al Hydrox/Mg Hydrox/Simet LIQ* 30 ML UDC PO PRN (13:35)
[2017-06-15] MEDS ORDERED: diPHENhydraMINE IV* 25 MG in NS 0.9% 50 ML* 50 ML IVPB PRN (14:12)
[2017-06-15] MEDS ORDERED: diPHENhydraMINE PO* 25 MG PO PRN (14:15)
--- NOTE | 2017-06-15 15:17 | PN ---
Subjective Date of Service: 06/15/17 Interval History: Ms. Pedro Childress continues to have nausea, vomiting and epigastric pain every time she eats. She denies other complaint including chest pain or SOB. Family History: Unchanged from Admission Social History: Unchanged from Admission Past Medical History: Unchanged from Admission Objective Active Medications: Acetaminophen (Tylenol Tab*) 650 mg PO Q4H PRN Al Hydrox/Mg Hydrox/Simethicone (Maalox Plus*) 30 ml PO Q4H PRN Diphenhydramine HCl (Benadryl Po*) 25 mg PO Q6H PRN Potassium Chloride/Sodium Chloride (Ns 0.9% W/ 20 Meq Kcl 1000 Ml*) 1,000 mls @ 100 mls/hr IV PER RATE [facility] Magnesium Hydroxide (Milk Of Magnesia Liq*) 30 ml PO Q6H PRN Morphine Sulfate (Morphine Inj (Syringe)*) 2 mg IV Q4H PRN Multivitamins ( Vitamin Tab*) 1 tab PO DAILY [facility] Omeprazole (Prilosec Cap*) 20 mg PO BID [facility] Ondansetron HCl (Zofran Inj*) 4 mg IV Q4H PRN Prochlorperazine Edisylate (Compazine Inj*) 5 mg IV Q6H PRN Sucralfate (Carafate*) 1 gm PO BID PRN Vital Signs 06/14/17 06/14/17 06/14/17 16:03 19:59 20:39 Temperature 98.7 F 98.4 F Pulse Rate 73 64 Respiratory 16 18 16 Rate Blood Pressure 96/51 116/70 (mmHg) O2 Sat by Pulse 99 100 Oximetry 06/14/17 06/14/17 06/14/17 20:44 21:44 23:42 Temperature 98.3 F Pulse Rate 74 Respiratory 16 16 16 Rate Blood Pressure 120/63 (mmHg) O2 Sat by Pulse 100 Oximetry 06/15/17 06/15/17 06/15/17 01:33 02:33 05:53 Temperature Pulse Rate Respiratory 16 18 20 Rate Blood Pressure (mmHg) O2 Sat by Pulse Oximetry 06/15/17 06/15/17 06/15/17 07:48 10:00 10:01 Temperature 98.3 F Pulse Rate 68 Respiratory 16 16 16 Rate Blood Pressure 115/62 (mmHg) O2 Sat by Pulse 99 Oximetry 06/15/17 14:03 Temperature Pulse Rate Respiratory 16 Rate Blood Pressure (mmHg) O2 Sat by Pulse Oximetry Oxygen Devices in Use Now: None Appearance: Female lying in bed in NAD Eyes: No Scleral Icterus Ears/Nose/Mouth/Throat: Mucous Membranes Moist Neck: Trachea Midline Respiratory: Symmetrical Chest Expansion and Respiratory Effort, Clear to Auscultation Cardiovascular: NL Sounds; No Murmurs; No JVD, No Edema Abdominal: NL Sounds; No Tenderness; No Distention Lymphatic: No Cervical Adenopathy Extremities: No Edema Skin: No Rash or Ulcers Neurological: Alert and Oriented x 3, NL Muscle Strength and Tone Nutrition: Taking PO's Result Diagrams: 06/14/17 05:21 06/14/17 05:21 Assess/Plan/Problems-Billing Assessment: Ms. Pedro Childress is a 31 yo female with no significant PMH , who is 8 para 4, and is currently 10 weeks who presented 06/11/17 with abdominal pain and intractable nausea & vomiting. - Patient Problems (1) Abdominal pain Comment: - Epigastric pain worse after eating. - Now question whether she may have hyperemesis gravidarum, appreciate GI consult, Dr. Giang to see today. - Will empirically treat with Vit B6 and benadryl. Also continue PPI, sucralfate, anti-emetics and morphine. - Abd US did not show appendix, no free fluid identified. - Appreciate OB consult on admission. (2) Constipation Comment: - Resolved. - MOM PRN. (3) DVT prophylaxis Comment: - Low risk, encourage ambulation. (4) Full code status Status and Disposition: Inpatient with intractable N/V and abd pain. Anticipate discharge to home when medically stable.
[2017-06-15] MEDS ORDERED: Pyridostigmine TAB* 60 MG PO SCH (17:00)
[2017-06-16] MEDS: Omeprazole CAP* 20 MG PO SCH (08:09)
[2017-06-16] MEDS: Prenatal Vitamin TAB PO SCH (08:10)
--- NOTE | 2017-06-16 09:58 | PN ---
Subjective Date of Service: 06/16/17 Interval History: Ms. Pedro Childress states that she is feeling much better today. She has no further nausea, vomiting or abdominal pain, even after eating breakfast. She is eager for discharge to home. Family History: Unchanged from Admission Social History: Unchanged from Admission Past Medical History: Unchanged from Admission Objective Active Medications: Acetaminophen (Tylenol Tab*) 650 mg PO Q4H PRN Al Hydrox/Mg Hydrox/Simethicone (Maalox Plus*) 30 ml PO Q4H PRN Diphenhydramine HCl (Benadryl Po*) 25 mg PO Q6H PRN Potassium Chloride/Sodium Chloride (Ns 0.9% W/ 20 Meq Kcl 1000 Ml*) 1,000 mls @ 100 mls/hr IV PER RATE [facility] Magnesium Hydroxide (Milk Of Magnlorne Liq*) 30 ml PO Q6H PRN Morphine Sulfate (Morphine Inj (Syringe)*) 2 mg IV Q4H PRN Multivitamins ( Vitamin Tab*) 1 tab PO DAILY [facility] Omeprazole (Prilosec Cap*) 20 mg PO BID [facility] Ondansetron HCl (Zofran Inj*) 4 mg IV Q4H PRN Prochlorperazine Edisylate (Compazine Inj*) 5 mg IV Q6H PRN Sucralfate (Carafate*) 1 gm PO BID PRN Vital Signs 06/15/17 06/15/17 06/15/17 10:00 10:01 14:03 Temperature Pulse Rate Respiratory 16 16 16 Rate Blood Pressure (mmHg) O2 Sat by Pulse Oximetry 06/15/17 06/15/17 06/15/17 16:19 17:47 19:47 Temperature Pulse Rate 66 Respiratory 23 16 18 Rate Blood Pressure 107/60 (mmHg) O2 Sat by Pulse 100 Oximetry 06/15/17 06/15/17 06/15/17 20:00 20:37 23:50 Temperature 98.1 F 97.9 F Pulse Rate 73 68 Respiratory 20 24 20 Rate Blood Pressure 101/61 107/54 (mmHg) O2 Sat by Pulse 99 96 Oximetry 06/16/17 06/16/17 06/16/17 07:17 07:20 08:00 Temperature Pulse Rate 80 Respiratory 18 16 Rate Blood Pressure 82/48 86/50 (mmHg) O2 Sat by Pulse 99 Oximetry 06/16/17 09:14 Temperature Pulse Rate 73 Respiratory Rate Blood Pressure 94/52 (mmHg) O2 Sat by Pulse Oximetry Oxygen Devices in Use Now: None Appearance: Female sitting up in bed in NAD Eyes: No Scleral Icterus Ears/Nose/Mouth/Throat: Mucous Membranes Moist Neck: Trachea Midline Respiratory: Symmetrical Chest Expansion and Respiratory Effort, Clear to Auscultation Cardiovascular: NL Sounds; No Murmurs; No JVD, No Edema Abdominal: NL Sounds; No Tenderness; No Distention Lymphatic: No Cervical Adenopathy Extremities: No Edema Skin: No Rash or Ulcers Neurological: Alert and Oriented x 3, NL Muscle Strength and Tone Nutrition: Taking PO's Result Diagrams: 06/14/17 05:21 06/14/17 05:21 Assess/Plan/Problems-Billing Assessment: Ms. Pedro Childress is a 31 yo female with no significant PMH , who is 8 para 4, and is currently 10 weeks who presented 06/11/17 with abdominal pain and intractable nausea & vomiting. - Patient Problems (1) Abdominal pain Comment: - Resolved. - Continue benadryl, zofran, sucralfate, and omeprazole as needed. - Abd US did not show appendix, no free fluid identified. Hx of cholecystectomy. - Appreciate OB consult on admission. (2) Constipation Comment: - Resolved. - MOM PRN. (3) DVT prophylaxis Comment: - Low risk, encourage ambulation. (4) Full code status Status and Disposition: Inpatient with intractable N/V and abd pain. Discharge to home.
[2017-06-16 11:54] VITALS: BP 103/57
--- NOTE | 2017-06-16 23:40 | DS ---
HOSPITAL MEDICINE DISCHARGE SUMMARY: DATE OF ADMISSION: 06/11/17 DATE OF DISCHARGE: 06/16/17 PRIMARY CARE PROVIDER: Ashleigh Aranda NP. ATTENDING PHYSICIAN: Yesenia Mcgarry MD * (dictation provided by Neris Braun NP ). PRIMARY DIAGNOSES: Nausea, vomiting with abdominal pain and question of hyperemesis gravidarum. SECONDARY DIAGNOSES: 1. History of cholecystectomy. 2. 8, para 4, currently 10 weeks . MEDICATIONS: At the time of discharge are: 1. Omeprazole 20 mg p.o. b.i.d. 2. Sucralfate 1 g p.o. b.i.d. as needed for persistent nausea or abdominal pain. 3. Benadryl 25 mg p.o. b.i.d. p.r.n. nausea. 4. Zofran 4 mg sublingually q.6 hours p.r.n. nausea. HOSPITAL COURSE: Ms. Pedro Childress is a 31-year-old female who is 8, para 4 and presented at 10 weeks who came with a concern for nausea, vomiting, abdominal pain. Please see the dictated H and P from Dr. Bi Sanchez for complete details. In brief, the patient stated that she was having constant pain in the center of her belly and she also reported nausea and vomiting that she was unable to control at home. She reports having an ultrasound at [facility] in the emergency department that only showed no evidence of cholecystitis, which was consistent with her history of cholecystectomy. Ms. Pedro Childress was admitted for symptomatic management. She was initially treated with Maalox and Zofran; sucralfate and ultimately a proton pump inhibitor were added. She was seen in consultation by Dr. Mak from Gastroenterology who agreed with that management and suspects that perhaps she had reflux. When her symptoms did not improve with this treatment, I did ask Dr. Giang to see the patient as well and at that point he suspected that perhaps she had hyperemesis gravidarum. He did note that this condition is not usually associated with abdominal pain, but felt that empiric treatment with Benadryl and perhaps vitamin B would be helpful. The patient did have 1 dose of Benadryl last night. This morning after having breakfast, she denied any nausea, vomiting, abdominal pain. It is unclear what was driving the patient's symptoms. They are most consistent with either gastritis or a gastric ulcer, although the fact that she is 31 years old and otherwise healthy without any risk factors makes this less likely. There is also a concern that this is hyperemesis gravidarum and in that event, these symptoms usually resolve at 112 weeks and so it could be that these symptoms resolved spontaneously based on her current status. In either event, Ms. Pedro Childress is feeling much better today and our plans are for discharge to home for her to followup with her primary care provider. We have also strongly encouraged her to obtain an RAD TECH as she has not had care thus far. I did prescribe a vitamin. DISPOSITION: Home. DIET: Regular. ACTIVITY: As tolerated. FOLLOWUP PLANS: 1. Please follow up with nurse practitionerRosi. 2. Please follow up with OB regarding care. TIME SPENT: Approximately 60 minutes were spent in the discharge of this patient, more than half of the time was spent with the patient at the bedside reviewing the events leading up to this hospitalization and during this hospitalization, performing the physical examination, and reviewing my plan of care. NERIS BRAUN NP [id number]/CPS #: [id number] SHIRLEY
== END 2017-06-16 12:00 | disposition home or self-care (01) | DRG 566 ==
LOC: ED 05:24 → MED 13:45 → OBSVTOIN 06-12 15:30
PROVIDERS: ADMIT Internal Medicine; ATTEND Internal Medicine
DX: O21.1 Hyperemesis gravidarum with metabolic disturbance (principal); O26.891 Other specified pregnancy related conditions, first trimester; K25.9 Gastric ulcer, unspecified as acute or chronic, without hemorrhage or perforation; K59.00 Constipation, unspecified; K29.70 Gastritis, unspecified, without bleeding; Z3A.10 10 weeks gestation of pregnancy; Z90.49 Acquired absence of other specified parts of digestive tract; Z83.6 Family history of other diseases of the respiratory system; Z83.3 Family history of diabetes mellitus
CPT/HCPCS: 36415; 76705; 80048; 80053; 80076; 81003; 83605; 83690; 83735; 84702; 85025; 86140; A9270-GY; J0780; J2270; J2405

== ENCOUNTER 2017-06-16 19:01 | Inpatient (IN) | payer SELFPAY ==
[2017-06-16] MEDS ORDERED: Pantoprazole IV* 40 MG ONE (19:37)
[2017-06-16] MEDS ORDERED: Pantoprazole IV* 40 MG IV ONE (19:41)
[2017-06-16] MEDS ORDERED: NS 0.9% 1000 ML* 1,000 ML IV ONE (19:43)
[2017-06-16 20:00] LABS: Urine Bacteria Absent (Absent); Urine Bilirubin Negative (Negative); Urine Glucose Negative (Negative); Urine Nitrite Negative (Negative)
[2017-06-16 20:08] LABS: Albumin 3.8 g/dL (3.2-5.2); BUN/Creatinine Ratio 11.1 (8-20); Calcium 9.2 mg/dL (8.6-10.3); EGFR African American 211.9 (>60); EGFR Non-African American 164.7 (>60); Globulin 3.5 g/dL (2-4); Potassium 3.4 mmol/L (3.5-5.0); Total Bilirubin 0.5 mg/dL (0.2-1.0); Total Protein 7.3 g/dL (6.4-8.9)
[2017-06-16 20:10] LABS: Troponin I 0.02 ng/mL (<0.04)
[2017-06-16] MEDS ORDERED: Ondansetron INJ* 2 MG/ML VIAL IV ONE ×2 (20:20→21:24)
[2017-06-16] MEDS ORDERED: Ondansetron INJ* 2 MG/ML VIAL ONE (20:22)
[2017-06-16 20:25] LABS: Hematocrit 39 % (35-47); Hemoglobin 13.6 g/dl (12.0-16.0); Mean Corpuscular HGB Conc 35 g/dl (31-36); Mean Corpuscular Hemoglobin 31 pg (27-31); Mean Corpuscular Volume 88 fL (80-97); Red Blood Count 4.45 10^6/ul (4.0-5.4); Red Cell Distribution Width 13 % (10.5-15); White Blood Count 14.8 10^3/ul (3.5-10.8)
[2017-06-16 20:26] LABS: Add Diff/Slide Review? Slide Review Added; Comments Flag Yes
[2017-06-16 20:53] LABS: Mean Platelet Volume 9 um3 (7.4-10.4)
[2017-06-16] MEDS ORDERED: Morphine INJ* 2 MG/ML 1 ML CARPUJECT IV ONE (21:24)
--- NOTE | 2017-06-16 21:29 | RAD ---
HISTORY: Abdominal pain, right upper quadrant pain COMPARISONS: None relevant TECHNIQUE: Multiple transverse and longitudinal ultrasound images were obtained of the right upper quadrant of the abdomen using grayscale and color Doppler imaging. FINDINGS: LIVER: The liver is normal in shape, size, contour, and echogenicity. There are no focal parenchymal masses. There is normal hepatopedal flow of the portal vein on Doppler imaging. BILIARY TREE: There is no intrahepatic or extrahepatic biliary dilatation. The common duct measures 0.2 cm. GALLBLADDER: The gallbladder is not clearly visualized. PANCREAS: The head of the pancreas is unremarkable. The tail of the pancreas is not well visualized secondary to overlying bowel gas. RIGHT KIDNEY: The right kidney is normal in shape, size, contour, and echogenicity. There is no hydronephrosis or nephrolithiasis. The right kidney measures 10.3 x 3.8 x 4.5 cm. AORTA AND IVC: The aorta and IVC are unremarkable. FLUID: There are no pleural effusions. There is no free fluid within the hepatorenal recess. OTHER FINDINGS: None. IMPRESSION: NO ACUTE SONOGRAPHIC PATHOLOGY OF THE VISUALIZED PORTION OF THE ABDOMEN.
--- NOTE | 2017-06-16 21:33 | RAD ---
HISTORY: Abdominal pain, ectopic , gestational age by dates of 11 weeks and 3 days COMPARISONS: January 14, 2017 TECHNIQUE: Multiple transverse and longitudinal ultrasound images were obtained of the pelvis using grayscale, color Doppler, and M-Mode Doppler imaging using the endovaginal transducer. FINDINGS: UTERUS: The uterus measures 10.8 x 5.8 x 8.9 cm in size. A contraction is noted along the posterior body. GESTATION: There is a single live intrauterine gestation. The crown-rump length measures 4.29 cm for a gestational age of 11 weeks, 2 days. The TYESHA is January 03, 2018. This is concordant with age by dates.. cardiac motion is detected at a rate of 165 beats per minute. Gross movement is identified. anatomy cannot be assessed secondary to early dates. The amniotic fluid is qualitatively normal. There are no retroplacental fluid collections. CUL-DE-SAC: There is no free fluid within the cul-de-sac. RIGHT OVARY: The right ovary measures 3.3 x 1.4 x 1.7 cm. LEFT OVARY: The left ovary measures 3.5 x 1.4 x 1.9 cm. BLADDER: The bladder is not well visualized. IMPRESSION: SINGLE LIVE INTRAUTERINE GESTATION AT 11 WEEKS AND 2 DAYS BY CROWN-RUMP LENGTH.
--- NOTE | 2017-06-16 23:03 | ED ---
josh Douglass Timothy, scribed for Artis Patel on 06/16/17 at 1920 . Abdominal Pain/Female - HPI Summary HPI Summary: Brea Childress is a 31 yo female presenting [facility] with 7/10 diffuse abd pain since 1500 today S/P d/c from this facility earlier today. Pt was admitted to [facility] 06/11/17 for ad pain work up. It Communications Manager wa present as Pt only speaks Belizean. Her MHx includes cholecystectomy. - History of Current Complaint Stated Complaint: ABD PAIN Time Seen by Provider: 06/16/17 19:30 Hx Obtained From: Patient Onset/Duration: Sudden Onset, Lasting Hours, Still Present Timing: Constant Severity Initially: Moderate Severity Currently: Moderate Pain Intensity: 7 Pain Scale Used: 0-10 Numeric Location: Diffuse Radiates: No Allergies/Adverse Reactions: Allergies Allergy/AdvReac Type Severity Reaction Status Date / Time No Known Allergies Allergy Verified 06/11/17 05:37 PMH/Surg Hx/FS Hx/Imm Hx Endocrine/Hematology History: Denies: Hx Diabetes, Hx Anemia Cardiovascular History: Denies: Hx Hypertension Respiratory History: Denies: Hx Asthma GI History: Reports: Hx Gall Bladder Disease - Cholecysectomy Sensory History: Denies: Hx Contacts or Glasses, Hx Hearing Aid Opthamlomology History: Denies: Hx Contacts or Glasses - Surgical History Surgery Procedure, Year, and Place: cholecystectomy - Immunization History Date of Tetanus Vaccine: unk Date of Influenza Vaccine: unk Infectious Disease History: Denies: Hx Clostridium Difficile, History Other Infectious Disease, Traveled Outside the [place] in Last 30 Days - Family History Known Family History: Positive: Diabetes, Other - No CA. Negative: Hypertension - Social History Alcohol Use: None Hx Substance Use: No Substance Use Type: Reports: None Hx Tobacco Use: No Smoking Status (MU): Never Smoked Tobacco Review of Systems Constitutional: Negative Eyes: Negative ENT: Negative Cardiovascular: Negative Respiratory: Negative Positive: Abdominal Pain Genitourinary: Negative Musculoskeletal: Negative Skin: Negative Neurological: Negative Psychological: Normal All Other Systems Reviewed And Are Negative: Yes Physical Exam Triage Information Reviewed: Yes Vital Signs On Initial Exam: Initial Vitals BP 130/79 06/16/17 19:08 Vital Signs Reviewed: Yes Appearance: Positive: Well-Appearing, No Pain Distress, Well-Nourished Skin: Positive: Warm, Skin Color Reflects Adequate Perfusion, Dry Head/Face: Positive: Normal Head/Face Inspection Eyes: Positive: EOMI, DIOGO ENT: Positive: Normal ENT inspection, Hearing grossly normal. Negative: Muffled /hoarse voice Neck: Positive: Supple, Nontender Respiratory/Lung Sounds: Positive: Clear to Auscultation, Breath Sounds Present Cardiovascular: Positive: RRR, Pulses are Symmetrical in both Upper and Lower Extremities Abdomen Description: Positive: Other: - tenderness diffuse Bowel Sounds: Positive: Present Musculoskeletal: Positive: Normal, Strength/ROM Intact Neurological: Positive: Normal, Sensory/Motor Intact, Alert, Oriented to Person Place, Time Psychiatric: Positive: Normal, Affect/Mood Appropriate Diagnostics - Vital Signs Vital Signs Pulse Resp BP Pulse Ox 06/16/17 19:10 89 11 100 06/16/17 19:08 130/79 - Laboratory Lab Results: Lab Results 06/16/17 06/16/17 06/16/17 Range/Units 19:12 19:12 19:12 WBC 14.8 H (3.5-10.8) 10^3/ul RBC 4.45 (4.0-5.4) 10^6/ul Hgb 13.6 (12.0-16.0) g/dl Hct 39 (35-47) % MCV 88 (80-97) fL MCH 31 (27-31) pg MCHC 35 (31-36) g/dl RDW 13 (10.5-15) % Plt Count 286 (150-450) 10^3/ul MPV 9 (7.4-10.4) um3 Neut % (Auto) 75.0 (38-83) % Lymph % (Auto) 19.8 L (25-47) % Mill[place] % (Auto) 4.7 (1-9) % Eos % (Auto) 0.1 (0-6) % Baso % (Auto) 0.4 (0-2) % Absolute Neuts (auto) 11.1 H (1.5-7.7) 10^3/ul Absolute Lymphs (auto) 2.9 (1.0-4.8) 10^3/ul Absolute Monos (auto) 0.7 (0-0.8) 10^3/ul Absolute Eos (auto) 0 (0-0.6) 10^3/ul Absolute Basos (auto) 0.1 (0-0.2) 10^3/ul Absolute Nucleated RBC 0.01 10^3/ul Nucleated RBC % 0 Sodium 133 (133-145) mmol/L Potassium 3.4 L (3.5-5.0) mmol/L Chloride 101 (101-111) mmol/L Carbon Dioxide 21 L (22-32) mmol/L Anion Gap 11 (2-11) mmol/L BUN 5 L (6-24) mg/dL Creatinine 0.45 L (0.51-0.95) mg/dL Est GFR ( Amer) 211.9 (>60) Est GFR (Non-Af Amer) 164.7 (>60) BUN/Creatinine Ratio 11.1 (8-20) Glucose 75 (70-100) mg/dL Lactic Acid (0.5-2.0) mmol/L Calcium 9.2 (8.6-10.3) mg/dL Total Bilirubin 0.50 (0.2-1.0) mg/dL AST 15 (13-39) U/L ALT 19 (7-52) U/L Alkaline Phosphatase 57 (34-104) U/L Troponin I 0.02 (<0.04) ng/mL Total Protein 7.3 (6.4-8.9) g/dL Albumin 3.8 (3.2-5.2) g/dL Globulin 3.5 (2-4) g/dL Albumin/Globulin Ratio 1.1 (1-3) Lipase 107 H (11.0-82.0) U/L Beta HCG, Quant 96467.00 mIU/mL Urine Color Straw Urine Appearance Clear Urine pH 7.0 (5-9) Ur Specific [place] 1.004 L (1.010-1.030) Urine Protein Negative (Negative) Urine Ketones 2+ H (Negative) Urine Blood Negative (Negative) Urine Nitrate Negative (Negative) Urine Bilirubin Negative (Negative) Urine Urobilinogen Negative (Negative) Ur Leukocyte Esterase Trace H (Negative) Urine WBC (Auto) Trace(0-5/hpf) (Absent) Urine RBC (Auto) Trace(0-2/hpf) (Absent) Urine Bacteria Absent (Absent) Urine Glucose Negative (Negative) 06/16/17 Range/Units 19:12 WBC (3.5-10.8) 10^3/ul RBC (4.0-5.4) 10^6/ul Hgb (12.0-16.0) g/dl Hct (35-47) % MCV (80-97) fL MCH (27-31) pg MCHC (31-36) g/dl RDW (10.5-15) % Plt Count (150-450) 10^3/ul MPV (7.4-10.4) um3 Neut % (Auto) (38-83) % Lymph % (Auto) (25-47) % Mill[place] % (Auto) (1-9) % Eos % (Auto) (0-6) % Baso % (Auto) (0-2) % Absolute Neuts (auto) (1.5-7.7) 10^3/ul Absolute Lymphs (auto) (1.0-4.8) 10^3/ul Absolute Monos (auto) (0-0.8) 10^3/ul Absolute Eos (auto) (0-0.6) 10^3/ul Absolute Basos (auto) (0-0.2) 10^3/ul Absolute Nucleated RBC 10^3/ul Nucleated RBC % Sodium (133-145) mmol/L Potassium (3.5-5.0) mmol/L Chloride (101-111) mmol/L Carbon Dioxide (22-32) mmol/L Anion Gap (2-11) mmol/L BUN (6-24) mg/dL Creatinine (0.51-0.95) mg/dL Est GFR ( Amer) (>60) Est GFR (Non-Af Amer) (>60) BUN/Creatinine Ratio (8-20) Glucose (70-100) mg/dL Lactic Acid 1.1 (0.5-2.0) mmol/L Calcium (8.6-10.3) mg/dL Total Bilirubin (0.2-1.0) mg/dL AST (13-39) U/L ALT (7-52) U/L Alkaline Phosphatase (34-104) U/L Troponin I (<0.04) ng/mL Total Protein (6.4-8.9) g/dL Albumin (3.2-5.2) g/dL Globulin (2-4) g/dL Albumin/Globulin Ratio (1-3) Lipase (11.0-82.0) U/L Beta HCG, Quant mIU/mL Urine Color Urine Appearance Urine pH (5-9) Ur Specific [place] (1.010-1.030) Urine Protein (Negative) Urine Ketones (Negative) Urine Blood (Negative) Urine Nitrate (Negative) Urine Bilirubin (Negative) Urine Urobilinogen (Negative) Ur Leukocyte Esterase (Negative) Urine WBC (Auto) (Absent) Urine RBC (Auto) (Absent) Urine Bacteria (Absent) Urine Glucose (Negative) Result Diagrams: 06/16/17 19:12 06/16/17 19:12 Lab Statement: Any lab studies that have been ordered have been reviewed, and results considered in the medical decision making process. - Ultrasound No standard instances Ultrasound Interpretation: No Acute Changes - IMPRESSION of Abd US: NO ACUTE SONOGRAPHIC PATHOLOGY OF THE VISUALIZED PORTION OF THE ABDOMEN., Positive (See Comments) - US IMPRESSION: SINGLE LIVE INTRAUTERINE GESTATION AT 11 WEEKS AND 2 DAYS BY CROWN-RUMP LENGTH. Ultrasound Interpretation Completed By: Radiologist - EKG 2013 Cardiac Rate: NL - 82 BPM EKG Interpretation: NSR @ 82 BPM, nonspecific T-wave changes Abdominal Pain Fem Course/Dx - Course Course Of Treatment: Brea Childress is a 31 yo female [facility] ?/10 abd pain S/P d/c from this facility earlier today. Pt medication list reviewed this visit. In the ED course she received protonix IV. Her EKG suggests NSR with nonspecific T-wave changes. Her abd US suggests no acute sonographic pathology of the visualized portion of the abd. Her US suggests a single live intrauterine gestation at 11 weeks and 2 days by crown- rump length. After clinical examination and review of her lab and imaging studies, as well as discussion with Dr. Benoit and Dr. Cobb, she will be admitted to [facility] with abdominal pain, , hyperemesis. [id number] - Dr. Benoit (hospitalist) - discussed Pt condition and discussion with Dr. Cobb, accepts Pt for admission. - Diagnoses Differential Diagnosis: Positive: Provider Diagnoses: Abdominal pain, , Hyperemesis - Provider Notifications Discussed Care Of Patient With: Karli Cobb - Discussed Pt condition, will consult with hopsitalist. Time Discussed With Above Provider: 22:05 Instructed by Provider To: Admit As Inpatient Discharge - Discharge Plan Condition: Stable Disposition: ADMITTED TO [facility] Referrals: Ashleigh Aranda PA [Primary Care Provider] - The documentation as recorded by the josh pina Timothy accurately reflects the service I personally performed and the decisions made by , Artis Patel.
[2017-06-17] MEDS ORDERED: Morphine INJ* 2 MG/ML 1 ML CARPUJECT IV ONE (00:27)
[2017-06-17] MEDS ORDERED: Acetaminophen TAB* 325 MG PO PRN (02:49)
[2017-06-17] MEDS ORDERED: NS 0.9% 1000 ML* 2,000 ML IV ONE (03:00)
--- NOTE | 2017-06-17 03:19 | HP ---
H&P (Free Text) History and Physical: PCP: CHACHA Suh Date/Time of Evaluation: 06/17/2017 0245 CC: abdominal pain, N/V HPI: Mrs Pedro Childress is a 22YO Chinese-only speaking female 11weeks presenting with dull abdominal pain with N/V for which she was admitted 06/12-. Internet translation services were utilized. She relates she did well up until 06/17 around 1400 when she experienced return of her abdominal pain which began 1 week ago. She quickly progressed to N/V of which she has had more episodes than she can recall since 1400. The pain is continuous and associated with chills, but no fevers, chest pain, SOB, black/bloody emesis, sweating, change in bowels, or other issues. She denies vaginal bleeding, but does admit to B/U/F of urine. Prior to 1week ago, she denies history of similar. PMedHx 8 para 4 Ambulatory Orders Omeprazole CAP* [Prilosec CAP* 20 MG] 20 mg PO BID #20 cap 06/16/17 Ondansetron TAB* [Zofran 4 MG Tab*] 4 mg PO Q6H PRN #20 tab 06/16/17 Vitamin TAB* 1 tab PO DAILY #30 tab 06/16/17 Sucralfate TAB* [Carafate*] 1 gm PO BID PRN #10 tab 06/16/17 diPHENhydraMINE PO* [Benadryl PO 25 MG TAB*] 25 mg PO Q12H PRN #10 tab 06/16/17 Allergies No Known Allergies Allergy (Verified 06/11/17 05:37) PSurgHx cholecystectomy SocHx: no tobacco, alcohol, or recreational drugs; lives with her & 4 children; full code status FamHx: Mother: DM2; Father: emphysema ROS: as above, otherwise reviewed and all were negative Constitutional: NAD, normally developed, obese female vitals: Vital Signs Temp 36.8 C 06/17/17 04:10 Pulse 85 06/17/17 04:10 Resp 20 06/17/17 04:18 BP 115/76 06/17/17 04:10 Pulse Ox 100 06/17/17 04:00 Intake & Output 06/16/17 06/16/1706/17/17 11:59 23:59 11:59 Weight 72.575 kg 70.942 kg HEENM: atraumatic; sclera/conjunctiva: non-icteric/clear; hearing: clinically intact; oropharynx: clear, mucosa moist Neck: soft tissue: no nuchal rigidity; thyroid: normal Pulmonary: clear to auscultation bilaterally, good aeration, no accessory muscle use CV: RR/RR, normal S1S2, no carotid bruit, no jugular venous distention, 2+ B DP/ PT, no edema Abdominal: soft, non-distended, non-tender, no rebound/guarding/rigidity, normoactive bowel sounds, no hepatosplenomegaly or masses, no costovertebral angle tenderness Musculoskeletal: general: grossly intact; gait: stable Integumental: normal appearance and texture of exposed skin Psychiatric orientation: AA&O to PPS affect: calm mood: cooperative eye contact: fair content: reliable responses: timely insight: good Testing: Laboratory Results - last 24 hr 06/16/17 06/16/17 06/16/17 19:12 19:12 19:12 WBC 14.8 H RBC 4.45 Hgb 13.6 Hct 39 MCV 88 MCH 31 MCHC 35 RDW 13 Plt Count 286 MPV 9 Neut % (Auto) 75.0 Lymph % (Auto) 19.8 L [place] % (Auto) 4.7 Eos % (Auto) 0.1 Baso % (Auto) 0.4 Absolute Neuts (auto) 11.1 H Absolute Lymphs (auto) 2.9 Absolute Monos (auto) 0.7 Absolute Eos (auto) 0 Absolute Basos (auto) 0.1 Absolute Nucleated RBC 0.01 Nucleated RBC % 0 Sodium 133 Potassium 3.4 L Chloride 101 Carbon Dioxide 21 L Anion Gap 11 BUN 5 L Creatinine 0.45 L Est GFR ( Amer) 211.9 Est GFR (Non-Af Amer) 164.7 BUN/Creatinine Ratio 11.1 Glucose 75 Lactic Acid Calcium 9.2 Magnesium 1.9 Total Bilirubin 0.50 AST 15 ALT 19 Alkaline Phosphatase 57 Troponin I 0.02 Total Protein 7.3 Albumin 3.8 Globulin 3.5 Albumin/Globulin Ratio 1.1 Lipase 107 H Beta HCG, Quant 16150.00 Urine Color Straw Urine Appearance Clear Urine pH 7.0 Ur Specific [place] 1.004 L Urine Protein Negative Urine Ketones 2+ H Urine Blood Negative Urine Nitrate Negative Urine Bilirubin Negative Urine Urobilinogen Negative Ur Leukocyte Esterase Trace H Urine WBC (Auto) Trace(0-5/hpf) Urine RBC (Auto) Trace(0-2/hpf) Urine Bacteria Absent Urine Glucose Negative 06/16/17 19:12 WBC RBC Hgb Hct MCV MCH MCHC RDW Plt Count MPV Neut % (Auto) Lymph % (Auto) [place] % (Auto) Eos % (Auto) Baso % (Auto) Absolute Neuts (auto) Absolute Lymphs (auto) Absolute Monos (auto) Absolute Eos (auto) Absolute Basos (auto) Absolute Nucleated RBC Nucleated RBC % Sodium Potassium Chloride Carbon Dioxide Anion Gap BUN Creatinine Est GFR ( Amer) Est GFR (Non-Af Amer) BUN/Creatinine Ratio Glucose Lactic Acid 1.1 Calcium Magnesium Total Bilirubin AST ALT Alkaline Phosphatase Troponin I Total Protein Albumin Globulin Albumin/Globulin Ratio Lipase Beta HCG, Quant Urine Color Urine Appearance Urine pH Ur Specific [place] Urine Protein Urine Ketones Urine Blood Urine Nitrate Urine Bilirubin Urine Urobilinogen Ur Leukocyte Esterase Urine WBC (Auto) Urine RBC (Auto) Urine Bacteria Urine Glucose US abdomen, limited: IMPRESSION: NO ACUTE SONOGRAPHIC PATHOLOGY OF THE VISUALIZED PORTION OF THE ABDOMEN. Impression: 31F , Chinese-only speaking 11wk female presenting with return of abdominal pain w/ N/V 2 hours after discharge DIAGNOSIS & PLAN Primary intractable abdominal pain w/ N/V : unclear etiology : monitor labs : pain control : anti-emetics : consider GI consult in AM : supportive care Secondary 11week intrauterine : Evelyn Cobb MD ASSOCIATE PRODUCER consulted, will evaluate in AM Admission Rational: observation for intractable abdominal pain w/ N/V DVTp: YOSELYN Code Status: full
[2017-06-17 03:45] LABS: Magnesium 1.9 mg/dL (1.9-2.7)
--- NOTE | 2017-06-17 04:03 | CONSULT ---
Consult Consult: CC: epigastric pain HPI: Pt is 11wks and c/o sharp upper abd pain for the past 2 weeks. She was recently admitted on the hospitalist service about 5 days ago for the same pain and just discharged less than 24hrs ago. She was feeling well at the time of discharge and batool reg diet. Since then her severe epigastric pain started again accompanied by n/v. She was admitted by the hospitalist service again. At the time of exam she had minimal pain and was very sleepy. She has had minimal n/v for about the past 2 mo but has been able to keep some food down and did not have any pain originally. She says the pain is worst in the middle but wraps around to both sides and into her back. She denies any lower abd cramping or vaginal bleeding. She has not had any care for her yet because she has not been able to get insurance. She says she made an appt with someone in [place] but couldn't get in jun. ROS: otherwise neg Meds: none currently Allergies: NKDA PMH: Denies PSH: cholecystectomy Tip Bander Hx: , 11wks by thania at [place] ED, denies complications with prior pregnancies, Delivered in [place] with Dr. Boyer Soc Hx: Denies Tobacco, alcohol or illicit drug use PE: Gen: mild painful distress Abd: soft, mild epigastic tenderness, no lower abd tenderness A/P: Pt is 11wks with epigastric pain, n/v. No concerns. Further management of her pain per hospitalist team. Please contact Ob with further concerns related to the . If she is unable to re-establish care with her Ob in [place] she can f/u at [facility]
[2017-06-17] MEDS: Morphine INJ* 2 MG/ML 1 ML CARPUJECT IV PRN ×5 (04:18→21:59)
[2017-06-17] MEDS: Ondansetron INJ* 2 MG/ML VIAL IV PRN ×4 (04:18→16:38)
[2017-06-17] MEDS ORDERED: Omeprazole CAP* 20 MG PO SCH (06:00)
[2017-06-17] MEDS ORDERED: NS 0.9% 1000 ML* 1,000 ML IV SCH (06:15)
[2017-06-17 06:22] LABS: Hematocrit 35 % (35-47); Hemoglobin 11.9 g/dl (12.0-16.0); Mean Corpuscular HGB Conc 34 g/dl (31-36); Mean Corpuscular Hemoglobin 30 pg (27-31); Mean Corpuscular Volume 89 fL (80-97); Mean Platelet Volume 9 um3 (7.4-10.4); Red Blood Count 3.94 10^6/ul (4.0-5.4); Red Cell Distribution Width 12 % (10.5-15); White Blood Count 12.5 10^3/ul (3.5-10.8)
[2017-06-17 06:32] LABS: BUN/Creatinine Ratio 16.7 (8-20); Calcium 7.9 mg/dL (8.6-10.3); EGFR African American 274.1 (>60); EGFR Non-African American 213.1 (>60); Potassium 3.5 mmol/L (3.5-5.0)
--- NOTE | 2017-06-17 07:29 | PN ---
Subjective Date of Service: 06/17/17 Interval History: Ms. Pedro Childress confirms that she was feeling better at the time of discharge yesterday. However, on the way home she became nauseated and was vomiting. On returning home she again developed epigastric pain. She has had persistent epigastric pain since then with intermittent nausea and vomiting. She has tolerated a small amount of oral intake. 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 She had one small BM yesterday. Objective Active Medications: Acetaminophen (Tylenol Tab*) 650 mg PO Q6H PRN Docusate Sodium (Colace Cap*) 200 mg PO BID LINDA Sodium Chloride (Ns 0.9% 1000 Ml*) 1,000 mls @ 125 mls/hr IV PER RATE LINDA Morphine Sulfate (Morphine Inj (Syringe)*) 2 mg IV Q4H PRN Omeprazole (Prilosec Cap*) 20 mg PO DAILY@0600 LINDA Ondansetron HCl (Zofran Inj*) 4 mg IV Q6H PRN Vital Signs 06/17/17 06/17/17 06/17/17 03:00 03:30 04:00 Temperature 98.8 F Pulse Rate 69 93 Respiratory 15 12 19 Rate Blood Pressure 98/51 115/76 135/72 (mmHg) O2 Sat by Pulse 94 100 Oximetry 06/17/17 06/17/17 06/17/17 04:10 04:18 05:18 Temperature 98.3 F Pulse Rate 85 Respiratory 16 20 17 Rate Blood Pressure 115/76 (mmHg) O2 Sat by Pulse Oximetry Oxygen Devices in Use Now: None Appearance: Female lying in bed in NAD, Bedside static balancer pad used for interview. Eyes: No Scleral Icterus Ears/Nose/Mouth/Throat: Mucous Membranes Moist Neck: Trachea Midline Respiratory: Symmetrical Chest Expansion and Respiratory Effort, Clear to Auscultation Cardiovascular: NL Sounds; No Murmurs; No JVD, No Edema Abdominal: - - BS +, epigastric pain with palpation, no rebound, soft Lymphatic: No Cervical Adenopathy Extremities: No Edema Skin: No Rash or Ulcers Neurological: Alert and Oriented x 3, NL Muscle Strength and Tone Result Diagrams: 06/17/17 05:06 06/17/17 05:06 Additional Lab and Data: Lab Results 06/16/17 06/16/17 06/16/17 Range/Units 19:12 19:12 19:12 WBC 14.8 H (3.5-10.8) 10^3/ul RBC 4.45 (4.0-5.4) 10^6/ul Hgb 13.6 (12.0-16.0) g/dl Hct 39 (35-47) % MCV 88 (80-97) fL MCH 31 (27-31) pg MCHC 35 (31-36) g/dl RDW 13 (10.5-15) % Plt Count 286 (150-450) 10^3/ul MPV 9 (7.4-10.4) um3 Neut % (Auto) 75.0 (38-83) % Lymph % (Auto) 19.8 L (25-47) % [place] % (Auto) 4.7 (1-9) % Eos % (Auto) 0.1 (0-6) % Baso % (Auto) 0.4 (0-2) % Absolute Neuts (auto) 11.1 H (1.5-7.7) 10^3/ul Absolute Lymphs (auto) 2.9 (1.0-4.8) 10^3/ul Absolute Monos (auto) 0.7 (0-0.8) 10^3/ul Absolute Eos (auto) 0 (0-0.6) 10^3/ul Absolute Basos (auto) 0.1 (0-0.2) 10^3/ul Absolute Nucleated RBC 0.01 10^3/ul Nucleated RBC % 0 Sodium 133 (133-145) mmol/L Potassium 3.4 L (3.5-5.0) mmol/L Chloride 101 (101-111) mmol/L Carbon Dioxide 21 L (22-32) mmol/L Anion Gap 11 (2-11) mmol/L BUN 5 L (6-24) mg/dL Creatinine 0.45 L (0.51-0.95) mg/dL Est GFR ( Amer) 211.9 (>60) Est GFR (Non-Af Amer) 164.7 (>60) BUN/Creatinine Ratio 11.1 (8-20) Glucose 75 (70-100) mg/dL Lactic Acid (0.5-2.0) mmol/L Calcium 9.2 (8.6-10.3) mg/dL Total Bilirubin 0.50 (0.2-1.0) mg/dL AST 15 (13-39) U/L ALT 19 (7-52) U/L Alkaline Phosphatase 57 (34-104) U/L Troponin I 0.02 (<0.04) ng/mL Total Protein 7.3 (6.4-8.9) g/dL Albumin 3.8 (3.2-5.2) g/dL Globulin 3.5 (2-4) g/dL Albumin/Globulin Ratio 1.1 (1-3) Lipase 107 H (11.0-82.0) U/L Beta HCG, Quant 57843.00 mIU/mL Urine Color Straw Urine Appearance Clear Urine pH 7.0 (5-9) Ur Specific [place] 1.004 L (1.010-1.030) Urine Protein Negative (Negative) Urine Ketones 2+ H (Negative) Urine Blood Negative (Negative) Urine Nitrate Negative (Negative) Urine Bilirubin Negative (Negative) Urine Urobilinogen Negative (Negative) Ur Leukocyte Esterase Trace H (Negative) Urine WBC (Auto) Trace(0-5/hpf) (Absent) Urine RBC (Auto) Trace(0-2/hpf) (Absent) Urine Bacteria Absent (Absent) Urine Glucose Negative (Negative) 06/16/17 Range/Units 19:12 WBC (3.5-10.8) 10^3/ul RBC (4.0-5.4) 10^6/ul Hgb (12.0-16.0) g/dl Hct (35-47) % MCV (80-97) fL MCH (27-31) pg MCHC (31-36) g/dl RDW (10.5-15) % Plt Count (150-450) 10^3/ul MPV (7.4-10.4) um3 Neut % (Auto) (38-83) % Lymph % (Auto) (25-47) % [place] % (Auto) (1-9) % Eos % (Auto) (0-6) % Baso % (Auto) (0-2) % Absolute Neuts (auto) (1.5-7.7) 10^3/ul Absolute Lymphs (auto) (1.0-4.8) 10^3/ul Absolute Monos (auto) (0-0.8) 10^3/ul Absolute Eos (auto) (0-0.6) 10^3/ul Absolute Basos (auto) (0-0.2) 10^3/ul Absolute Nucleated RBC 10^3/ul Nucleated RBC % Sodium (133-145) mmol/L Potassium (3.5-5.0) mmol/L Chloride (101-111) mmol/L Carbon Dioxide (22-32) mmol/L Anion Gap (2-11) mmol/L BUN (6-24) mg/dL Creatinine (0.51-0.95) mg/dL Est GFR ( Amer) (>60) Est GFR (Non-Af Amer) (>60) BUN/Creatinine Ratio (8-20) Glucose (70-100) mg/dL Lactic Acid 1.1 (0.5-2.0) mmol/L Calcium (8.6-10.3) mg/dL Total Bilirubin (0.2-1.0) mg/dL AST (13-39) U/L ALT (7-52) U/L Alkaline Phosphatase (34-104) U/L Troponin I (<0.04) ng/mL Total Protein (6.4-8.9) g/dL Albumin (3.2-5.2) g/dL Globulin (2-4) g/dL Albumin/Globulin Ratio (1-3) Lipase (11.0-82.0) U/L Beta HCG, Quant mIU/mL Urine Color Urine Appearance Urine pH (5-9) Ur Specific [place] (1.010-1.030) Urine Protein (Negative) Urine Ketones (Negative) Urine Blood (Negative) Urine Nitrate (Negative) Urine Bilirubin (Negative) Urine Urobilinogen (Negative) Ur Leukocyte Esterase (Negative) Urine WBC (Auto) (Absent) Urine RBC (Auto) (Absent) Urine Bacteria (Absent) Urine Glucose (Negative) Assess/Plan/Problems-Billing Assessment: Ms. Pedro Childress is a 31 yo female who is G8, P4 and 11 weeks who returns to the hospital less than 24 hrs after being discharged on 06/16/17 with return of nausea/vomiting and epigastric pain. - Patient Problems (1) Abdominal pain Comment: - Returned with nausea and vomiting. - Resume benadryl, zofran, sucralfate, and omeprazole. Start Vit B6. - Abd US did not show appendix, no free fluid identified. Hx of cholecystectomy. - Repeat GI consult pending. - Continue to question gastritis, peptic ulcer, or possibly hyperemesis gravidarum. (2) Comment: - Appreciate consultation from Dr. Cobb. - No issues identified with . - Patient does not have outpatient OB care as she doesn't have insurance. - SW consult placed. (3) DVT prophylaxis Comment: - Low risk, encourage ambulation. (4) Full code status Status and Disposition: OBV. Anticipate discharge to home when medically stable.
[2017-06-17] MEDS: NS 0.9% 1000 ML* 1,000 ML IV SCH ×2 (08:08→20:31)
[2017-06-17] MEDS: Docusate CAP* 100 MG PO SCH ×2 (09:52→20:32)
[2017-06-17] MEDS ORDERED: diPHENhydraMINE PO* 25 MG PO PRN (11:19)
[2017-06-17] MEDS ORDERED: Ondansetron INJ* 2 MG/ML VIAL IV ONE (11:19)
[2017-06-17] MEDS ORDERED: Sucralfate TAB* 1 GM PO PRN (11:19)
[2017-06-17 11:37] LABS: C Reactive Protein 4.35 mg/L (< 5.00)
[2017-06-17] MEDS ORDERED: Pantoprazole IV* 40 MG IV ONE (12:21)
[2017-06-17] MEDS: Pyridoxine TAB* 50 MG PO SCH ×2 (13:26→20:31)
[2017-06-17] MEDS: Pantoprazole IV* 80 MG in NS 0.9% 250 ML* 250 ML IVPB SCH (13:26)
--- NOTE | 2017-06-17 19:15 | RAD ---
HISTORY: Left upper quadrant pain COMPARISONS: June 16, 2017 TECHNIQUE: Multiple transverse and longitudinal ultrasound images were obtained of the kidneys using grayscale and color Doppler imaging. FINDINGS: RIGHT KIDNEY: The right kidney is normal in shape, size, contour, and echogenicity. There is fullness of the right renal pelvis. There is no hydronephrosis or nephrolithiasis. The right kidney measures 11.4 x 5.1 x 4.5 cm. LEFT KIDNEY: The left kidney is normal in shape, size, contour, and echogenicity. There is no hydronephrosis or nephrolithiasis. The left kidney measures 10.7 x 5.7 x 5.3. cm. BLADDER: The bladder is smooth in contour. Bilateral ureteral jets are identified. AORTA AND IVC: No images are submitted of the vasculature. RETROPERITONEUM: Unremarkable. OTHER: None. IMPRESSION: NO HYDRONEPHROSIS OR NEPHROLITHIASIS
[2017-06-17] MEDS: Famotidine TAB* 20 MG PO SCH (20:32)
[2017-06-18] MEDS: Ondansetron INJ* 2 MG/ML VIAL IV PRN ×2 (00:01→07:28)
[2017-06-18] MEDS: Pantoprazole IV* 80 MG in NS 0.9% 250 ML* 250 ML IVPB SCH ×4 (01:55→17:12)
[2017-06-18] MEDS: Pyridoxine TAB* 50 MG PO SCH ×3 (03:33→19:31)
[2017-06-18] MEDS: Morphine INJ* 2 MG/ML 1 ML CARPUJECT IV PRN ×2 (03:33→07:27)
--- NOTE | 2017-06-18 03:39 | CONS ---
GASTROENTEROLOGY CONSULT: DATE: 06/17/17 CONSULTING PHYSICIAN: Yesenia Mcgarry MD REASON FOR CONSULTATION: Epigastric pain with nausea and vomiting. HISTORY: This 31-year-old woman who was just in the hospital last week (see prior consult note) apparently was feeling better and eating on the day of discharge 06/15/17. She picked up her medications per report and was taking them, but shortly after getting home, began vomiting again. She was not running a fever. There was no diarrhea or rash. She returned to the hospital in the golf caddie hours this morning with a complaint of pain. She states it goes around to the left side of her back, but starts in the epigastrium. Repeat labs were unremarkable. PAST MEDICAL HISTORY: 1. Status post cholecystectomy. 2. 8, para 4. SOCIAL HISTORY: She is from [facility], but has been here since 2003. She speaks essentially only Mongolian. REVIEW OF SYSTEMS: No one else in the family is ill. She has not had diarrhea. She states she has not been constipated either. PHYSICAL EXAM: She was retching when I entered the room. She is afebrile. Blood pressure is 109/67, pulse is 81. HEENT: Exam is unremarkable. She has no adenopathy. Her lungs are clear. Heart sounds are regular. The abdomen is flat with normal bowel sounds. After explanation, digital rectal is normal with some firm, dark brown, greenish stool, submitted for Hemoccult. DIAGNOSTIC STUDIES/LAB DATA: CBC, hemoglobin 11.9, hematocrit 35, white count 12.5, CRP 4.35. LFTs normal. Lipase 107. Albumin 3.8, creatinine 0.36, BUN 6. Sodium 133. IMAGING REVIEW: Initial ultrasound was focused on the right lower quadrant and a subsequent ultrasound was focused on the right upper quadrant to look at the right kidney. IMPRESSION: Epigastric pain with N+V which relapsed after being better for a brief period of time. Again, the possibilities are reflux, hyperemesis, intracranial process with the upper abdominal pain being secondary to abdominal wall irritation. An another consideration would be that of a renal stone, which occasionally can present with midline pain. A renal ultrasound might be useful. Pending that, administering her PPI intravenously would be indicated. An infectious gastritis or chemical irritation gastritis one would think would have run its course at this point and this situation is rather mysterious. Standard peptic ulcer disease related to HP is usually readily treated with a day or two of PPI and is unlikely here. Upper endoscopy would seem to be low yield, though is an ongoing consideration. [id number]/[facility] #: [id number] [facility]
[2017-06-18] MEDS: NS 0.9% 1000 ML* 1,000 ML IV SCH ×2 (06:02→14:02)
[2017-06-18] MEDS: Docusate CAP* 100 MG PO SCH ×2 (07:24→19:30)
[2017-06-18] MEDS ORDERED: Metoclopramide IV* 5 MG/ML 2 ML VIAL ONE (09:07)
[2017-06-18] MEDS: Prenatal Vitamin TAB PO SCH (09:10)
[2017-06-18] MEDS: Metoclopramide IV* 5 MG/ML 2 ML VIAL IV SCH ×3 (09:10→16:22)
--- NOTE | 2017-06-18 10:49 | PN ---
Subjective Date of Service: 06/18/17 Interval History: Ms. Pedro Childress continues to complain of nausea, vomiting, and epigastric pain. She denies other complaint. Objective Active Medications: Acetaminophen (Tylenol Tab*) 650 mg PO Q6H PRN Diphenhydramine HCl (Benadryl Po*) 25 mg PO Q12H PRN Docusate Sodium (Colace Cap*) 200 mg PO BID LINDA Famotidine (Pepcid Tab*) 40 mg PO 2100 LINDA Sodium Chloride (Ns 0.9% 1000 Ml*) 1,000 mls @ 125 mls/hr IV PER RATE LINDA Pantoprazole Sodium 80 mg/ (Sodium Chloride) 250 mls @ 25 mls/hr IVPB Q10H LINDA Metoclopramide HCl (Reglan Iv*) 5 mg IV AC LINDA Morphine Sulfate (Morphine Inj (Syringe)*) 2 mg IV Q4H PRN Multivitamins ( Vitamin Tab*) 1 tab PO DAILY LINDA Ondansetron HCl (Zofran Inj*) 4 mg IV Q4H PRN Pyridoxine HCl (Vitamin B6 Tab*) 25 mg PO Q8H LINDA Sucralfate (Carafate*) 1 gm PO 0700,1100,1600 [facility] Vital Signs 06/17/17 06/17/17 06/17/17 10:49 11:34 13:30 Temperature 98.9 F Pulse Rate 81 Respiratory 18 17 18 Rate Blood Pressure 109/67 (mmHg) O2 Sat by Pulse 100 Oximetry 06/17/17 06/17/17 06/17/17 14:30 15:44 16:43 Temperature 98.4 F Pulse Rate 73 Respiratory 18 21 20 Rate Blood Pressure 119/63 (mmHg) O2 Sat by Pulse 100 Oximetry 06/17/17 06/17/17 06/17/17 18:22 18:43 21:59 Temperature Pulse Rate Respiratory 20 16 19 Rate Blood Pressure (mmHg) O2 Sat by Pulse Oximetry 06/17/17 06/17/17 06/18/17 22:59 23:08 03:31 Temperature 98.9 F 98.3 F Pulse Rate 86 70 Respiratory 20 16 16 Rate Blood Pressure 91/46 105/54 (mmHg) O2 Sat by Pulse 98 99 Oximetry 06/18/17 06/18/17 06/18/17 03:33 04:33 07:27 Temperature Pulse Rate Respiratory 22 18 18 Rate Blood Pressure (mmHg) O2 Sat by Pulse Oximetry 06/18/17 07:51 Temperature 97.6 F Pulse Rate 74 Respiratory 18 Rate Blood Pressure 103/54 (mmHg) O2 Sat by Pulse 99 Oximetry Oxygen Devices in Use Now: None Appearance: Female lying in bed sleeping in NAD Eyes: No Scleral Icterus Ears/Nose/Mouth/Throat: Mucous Membranes Moist Neck: Trachea Midline Respiratory: Symmetrical Chest Expansion and Respiratory Effort, Clear to Auscultation Cardiovascular: NL Sounds; No Murmurs; No JVD, No Edema Abdominal: NL Sounds; No Tenderness; No Distention Lymphatic: No Cervical Adenopathy Extremities: No Edema Skin: No Rash or Ulcers Neurological: Alert and Oriented x 3, NL Muscle Strength and Tone Nutrition: Taking PO's Result Diagrams: 06/17/17 05:06 06/17/17 05:06 Additional Lab and Data: Lab Results 06/16/17 06/16/17 06/16/17 Range/Units 19:12 19:12 19:12 WBC 14.8 H (3.5-10.8) 10^3/ul RBC 4.45 (4.0-5.4) 10^6/ul Hgb 13.6 (12.0-16.0) g/dl Hct 39 (35-47) % MCV 88 (80-97) fL MCH 31 (27-31) pg MCHC 35 (31-36) g/dl RDW 13 (10.5-15) % Plt Count 286 (150-450) 10^3/ul MPV 9 (7.4-10.4) um3 Neut % (Auto) 75.0 (38-83) % Lymph % (Auto) 19.8 L (25-47) % [place] % (Auto) 4.7 (1-9) % Eos % (Auto) 0.1 (0-6) % Baso % (Auto) 0.4 (0-2) % Absolute Neuts (auto) 11.1 H (1.5-7.7) 10^3/ul Absolute Lymphs (auto) 2.9 (1.0-4.8) 10^3/ul Absolute Monos (auto) 0.7 (0-0.8) 10^3/ul Absolute Eos (auto) 0 (0-0.6) 10^3/ul Absolute Basos (auto) 0.1 (0-0.2) 10^3/ul Absolute Nucleated RBC 0.01 10^3/ul Nucleated RBC % 0 Sodium 133 (133-145) mmol/L Potassium 3.4 L (3.5-5.0) mmol/L Chloride 101 (101-111) mmol/L Carbon Dioxide 21 L (22-32) mmol/L Anion Gap 11 (2-11) mmol/L BUN 5 L (6-24) mg/dL Creatinine 0.45 L (0.51-0.95) mg/dL Est GFR ( Amer) 211.9 (>60) Est GFR (Non-Af Amer) 164.7 (>60) BUN/Creatinine Ratio 11.1 (8-20) Glucose 75 (70-100) mg/dL Lactic Acid (0.5-2.0) mmol/L Calcium 9.2 (8.6-10.3) mg/dL Total Bilirubin 0.50 (0.2-1.0) mg/dL AST 15 (13-39) U/L ALT 19 (7-52) U/L Alkaline Phosphatase 57 (34-104) U/L Troponin I 0.02 (<0.04) ng/mL Total Protein 7.3 (6.4-8.9) g/dL Albumin 3.8 (3.2-5.2) g/dL Globulin 3.5 (2-4) g/dL Albumin/Globulin Ratio 1.1 (1-3) Lipase 107 H (11.0-82.0) U/L Beta HCG, Quant 53828.00 mIU/mL Urine Color Straw Urine Appearance Clear Urine pH 7.0 (5-9) Ur Specific [place] 1.004 L (1.010-1.030) Urine Protein Negative (Negative) Urine Ketones 2+ H (Negative) Urine Blood Negative (Negative) Urine Nitrate Negative (Negative) Urine Bilirubin Negative (Negative) Urine Urobilinogen Negative (Negative) Ur Leukocyte Esterase Trace H (Negative) Urine WBC (Auto) Trace(0-5/hpf) (Absent) Urine RBC (Auto) Trace(0-2/hpf) (Absent) Urine Bacteria Absent (Absent) Urine Glucose Negative (Negative) 06/16/17 Range/Units 19:12 WBC (3.5-10.8) 10^3/ul RBC (4.0-5.4) 10^6/ul Hgb (12.0-16.0) g/dl Hct (35-47) % MCV (80-97) fL MCH (27-31) pg MCHC (31-36) g/dl RDW (10.5-15) % Plt Count (150-450) 10^3/ul MPV (7.4-10.4) um3 Neut % (Auto) (38-83) % Lymph % (Auto) (25-47) % [place] % (Auto) (1-9) % Eos % (Auto) (0-6) % Baso % (Auto) (0-2) % Absolute Neuts (auto) (1.5-7.7) 10^3/ul Absolute Lymphs (auto) (1.0-4.8) 10^3/ul Absolute Monos (auto) (0-0.8) 10^3/ul Absolute Eos (auto) (0-0.6) 10^3/ul Absolute Basos (auto) (0-0.2) 10^3/ul Absolute Nucleated RBC 10^3/ul Nucleated RBC % Sodium (133-145) mmol/L Potassium (3.5-5.0) mmol/L Chloride (101-111) mmol/L Carbon Dioxide (22-32) mmol/L Anion Gap (2-11) mmol/L BUN (6-24) mg/dL Creatinine (0.51-0.95) mg/dL Est GFR ( Amer) (>60) Est GFR (Non-Af Amer) (>60) BUN/Creatinine Ratio (8-20) Glucose (70-100) mg/dL Lactic Acid 1.1 (0.5-2.0) mmol/L Calcium (8.6-10.3) mg/dL Total Bilirubin (0.2-1.0) mg/dL AST (13-39) U/L ALT (7-52) U/L Alkaline Phosphatase (34-104) U/L Troponin I (<0.04) ng/mL Total Protein (6.4-8.9) g/dL Albumin (3.2-5.2) g/dL Globulin (2-4) g/dL Albumin/Globulin Ratio (1-3) Lipase (11.0-82.0) U/L Beta HCG, Quant mIU/mL Urine Color Urine Appearance Urine pH (5-9) Ur Specific [place] (1.010-1.030) Urine Protein (Negative) Urine Ketones (Negative) Urine Blood (Negative) Urine Nitrate (Negative) Urine Bilirubin (Negative) Urine Urobilinogen (Negative) Ur Leukocyte Esterase (Negative) Urine WBC (Auto) (Absent) Urine RBC (Auto) (Absent) Urine Bacteria (Absent) Urine Glucose (Negative) Microbiology and Other Data: Microbiology 06/17/17 16:00 Stool Occult Blood (RANDI) - Final Stool Assess/Plan/Problems-Billing Assessment: Ms. Pedro Childress is a 31 yo female who is G8, P4 and 11 weeks who returns to the hospital less than 24 hrs after being discharged on 06/16/17 with return of nausea/vomiting and epigastric pain. - Patient Problems (1) Abdominal pain Comment: - With nausea and vomiting with no improvement. - Abd US did not show appendix, no free fluid identified. Hx of cholecystectomy. Renal US did not show stone. - WBC mildly elevated but CRP is normal and she is afebrile. LFTs normal. - Appreciate GI consult. Etiology remains unclear. Continue benadryl and vit B6 for hyperemesis gravidarum. Continue IV protonix, famotidine, and reglan for gastritis. Add stool softeners and motility agents for constipation. (2) Comment: - Appreciate consultation from Dr. Cobb. - No issues identified with . - Patient does not have outpatient OB care as she doesn't have insurance. - SW consult placed. (3) DVT prophylaxis Comment: - Low risk, encourage ambulation. (4) Full code status Status and Disposition: OBV. Anticipate discharge to home when medically stable.
[2017-06-18] MEDS: Sucralfate TAB* 1 GM PO SCH ×2 (12:07→16:22)
[2017-06-18] MEDS ORDERED: Magnesium Hydroxide LIQ* 30 ML UDC PO ONE (13:00)
--- NOTE | 2017-06-18 17:04 | PN ---
Hospitalist Progress Note HOSPITALIST ADDENDUM Patient seen and examined at bedside. Case reviewed and d/w Neris Braun NP. Mrs. Childress is a 31yo F currently 11 weeks , who was admitted with epigastric pain, N/V. Patient states she had N/V during her prior pregnancies, but not like this, and she did not have epigastric pain. Pain started 2 weeks ago, epigastric radiating to LUQ, burning, fluctuating in intensity up to 10/10. No change when she eats. Denies diarrhea, no sick contacts. Vital Signs 06/18/17 15:23 Temperature 98.7 F Pulse Rate 68 Respiratory 16 Rate Blood Pressure 101/57 (mmHg) O2 Sat by Pulse 98 Oximetry Gen: young lady lying in bed in NAD. CVS: normal S1 and S2, RRR. Chest: BS+ bilaterally with no added sounds. Abd: soft, mild epigastric and LUQ tenderness on palpation, ND, BS+ Ext: no edema. Neuro: AAOx3, ORTA Laboratory Tests 06/17/17 05:06 WBC 12.5 H Hgb 11.9 L Hct 35 Plt Count 293 06/17/17 05:06 Sodium 133 Potassium 3.5 Chloride 104 Carbon Dioxide 20 L Anion Gap 9 BUN 6 Creatinine 0.36 L Glucose 72 Guaiac positive. Radiology tests reviewed. A/P: epigastric pain / N/V gastritis vs hyperemesis gravidarum - Will continue current management with Protonix drip and Famotidine at bedtime , Carafate ACHS, Pyridoxine, Reglan before meals, and Zofran as needed for nausea. If symptoms persist, will add Chlorpromazine. - Suspect guaiac positive is likely associated with Sadie Valentine tear secondary to recurrent vomiting. Time line does not fit for PUD for now. - GI input appreciated. - Monitor H/H.
[2017-06-18] MEDS: Famotidine TAB* 20 MG PO SCH (19:31)
[2017-06-19] MEDS: NS 0.9% 1000 ML* 1,000 ML IV SCH ×3 (03:16→20:07)
[2017-06-19] MEDS ORDERED: Pantoprazole IV* 40 MG ONE (05:01)
[2017-06-19] MEDS: Pantoprazole IV* 80 MG in NS 0.9% 250 ML* 250 ML IVPB SCH ×2 (05:07→15:47)
[2017-06-19] MEDS: Pyridoxine TAB* 50 MG PO SCH ×3 (05:08→20:05)
[2017-06-19] MEDS: Sucralfate TAB* 1 GM PO SCH ×3 (05:08→16:50)
--- NOTE | 2017-06-19 08:33 | PN ---
Subjective Date of Service: 06/19/17 Interval History: Ms. Pedro Childress states that she is feeling better today. She is tolerating small amounts of oral intake well without nausea, vomiting or abdominal pain. She denies chest pain or SOB. Objective Active Medications: Acetaminophen (Tylenol Tab*) 650 mg PO Q6H PRN Diphenhydramine HCl (Benadryl Po*) 25 mg PO Q12H PRN Docusate Sodium (Colace Cap*) 200 mg PO BID LINDA Famotidine (Pepcid Tab*) 40 mg PO 2100 LINDA Sodium Chloride (Ns 0.9% 1000 Ml*) 1,000 mls @ 125 mls/hr IV PER RATE LINDA Pantoprazole Sodium 80 mg/ (Sodium Chloride) 250 mls @ 25 mls/hr IVPB Q10H LINDA Metoclopramide HCl (Reglan Iv*) 5 mg IV AC LINDA Morphine Sulfate (Morphine Inj (Syringe)*) 2 mg IV Q4H PRN Multivitamins ( Vitamin Tab*) 1 tab PO DAILY LINDA Ondansetron HCl (Zofran Inj*) 4 mg IV Q4H PRN Pyridoxine HCl (Vitamin B6 Tab*) 25 mg PO Q8H LINDA Sucralfate (Carafate*) 1 gm PO 0700,1100,1600 [facility] Vital Signs 06/18/17 06/18/17 06/18/17 11:20 15:23 19:13 Temperature 98.1 F 98.7 F 98.4 F Pulse Rate 77 68 72 Respiratory 16 16 16 Rate Blood Pressure 98/57 101/57 95/61 (mmHg) O2 Sat by Pulse 97 98 98 Oximetry 06/18/17 06/18/17 06/19/17 20:00 23:57 04:17 Temperature 98.5 F 98.3 F Pulse Rate 70 61 Respiratory 18 16 16 Rate Blood Pressure 102/51 91/38 (mmHg) O2 Sat by Pulse 100 99 Oximetry 06/19/17 06:53 Temperature 98.3 F Pulse Rate 57 Respiratory 16 Rate Blood Pressure 94/49 (mmHg) O2 Sat by Pulse 100 Oximetry Oxygen Devices in Use Now: None Appearance: Female sitting up in bed in NAD Eyes: No Scleral Icterus Ears/Nose/Mouth/Throat: Mucous Membranes Moist Neck: Trachea Midline Respiratory: Symmetrical Chest Expansion and Respiratory Effort, Clear to Auscultation Cardiovascular: NL Sounds; No Murmurs; No JVD, No Edema Abdominal: NL Sounds; No Tenderness; No Distention Lymphatic: No Cervical Adenopathy Extremities: No Edema Skin: No Rash or Ulcers Neurological: Alert and Oriented x 3, NL Muscle Strength and Tone Nutrition: Taking PO's Result Diagrams: 06/17/17 05:06 06/17/17 05:06 Additional Lab and Data: Lab Results 06/16/17 06/16/17 06/16/17 Range/Units 19:12 19:12 19:12 WBC 14.8 H (3.5-10.8) 10^3/ul RBC 4.45 (4.0-5.4) 10^6/ul Hgb 13.6 (12.0-16.0) g/dl Hct 39 (35-47) % MCV 88 (80-97) fL MCH 31 (27-31) pg MCHC 35 (31-36) g/dl RDW 13 (10.5-15) % Plt Count 286 (150-450) 10^3/ul MPV 9 (7.4-10.4) um3 Neut % (Auto) 75.0 (38-83) % Lymph % (Auto) 19.8 L (25-47) % [place] % (Auto) 4.7 (1-9) % Eos % (Auto) 0.1 (0-6) % Baso % (Auto) 0.4 (0-2) % Absolute Neuts (auto) 11.1 H (1.5-7.7) 10^3/ul Absolute Lymphs (auto) 2.9 (1.0-4.8) 10^3/ul Absolute Monos (auto) 0.7 (0-0.8) 10^3/ul Absolute Eos (auto) 0 (0-0.6) 10^3/ul Absolute Basos (auto) 0.1 (0-0.2) 10^3/ul Absolute Nucleated RBC 0.01 10^3/ul Nucleated RBC % 0 Sodium 133 (133-145) mmol/L Potassium 3.4 L (3.5-5.0) mmol/L Chloride 101 (101-111) mmol/L Carbon Dioxide 21 L (22-32) mmol/L Anion Gap 11 (2-11) mmol/L BUN 5 L (6-24) mg/dL Creatinine 0.45 L (0.51-0.95) mg/dL Est GFR ( Amer) 211.9 (>60) Est GFR (Non-Af Amer) 164.7 (>60) BUN/Creatinine Ratio 11.1 (8-20) Glucose 75 (70-100) mg/dL Lactic Acid (0.5-2.0) mmol/L Calcium 9.2 (8.6-10.3) mg/dL Total Bilirubin 0.50 (0.2-1.0) mg/dL AST 15 (13-39) U/L ALT 19 (7-52) U/L Alkaline Phosphatase 57 (34-104) U/L Troponin I 0.02 (<0.04) ng/mL Total Protein 7.3 (6.4-8.9) g/dL Albumin 3.8 (3.2-5.2) g/dL Globulin 3.5 (2-4) g/dL Albumin/Globulin Ratio 1.1 (1-3) Lipase 107 H (11.0-82.0) U/L Beta HCG, Quant 53931.00 mIU/mL Urine Color Straw Urine Appearance Clear Urine pH 7.0 (5-9) Ur Specific [place] 1.004 L (1.010-1.030) Urine Protein Negative (Negative) Urine Ketones 2+ H (Negative) Urine Blood Negative (Negative) Urine Nitrate Negative (Negative) Urine Bilirubin Negative (Negative) Urine Urobilinogen Negative (Negative) Ur Leukocyte Esterase Trace H (Negative) Urine WBC (Auto) Trace(0-5/hpf) (Absent) Urine RBC (Auto) Trace(0-2/hpf) (Absent) Urine Bacteria Absent (Absent) Urine Glucose Negative (Negative) 06/16/17 Range/Units 19:12 WBC (3.5-10.8) 10^3/ul RBC (4.0-5.4) 10^6/ul Hgb (12.0-16.0) g/dl Hct (35-47) % MCV (80-97) fL MCH (27-31) pg MCHC (31-36) g/dl RDW (10.5-15) % Plt Count (150-450) 10^3/ul MPV (7.4-10.4) um3 Neut % (Auto) (38-83) % Lymph % (Auto) (25-47) % [place] % (Auto) (1-9) % Eos % (Auto) (0-6) % Baso % (Auto) (0-2) % Absolute Neuts (auto) (1.5-7.7) 10^3/ul Absolute Lymphs (auto) (1.0-4.8) 10^3/ul Absolute Monos (auto) (0-0.8) 10^3/ul Absolute Eos (auto) (0-0.6) 10^3/ul Absolute Basos (auto) (0-0.2) 10^3/ul Absolute Nucleated RBC 10^3/ul Nucleated RBC % Sodium (133-145) mmol/L Potassium (3.5-5.0) mmol/L Chloride (101-111) mmol/L Carbon Dioxide (22-32) mmol/L Anion Gap (2-11) mmol/L BUN (6-24) mg/dL Creatinine (0.51-0.95) mg/dL Est GFR ( Amer) (>60) Est GFR (Non-Af Amer) (>60) BUN/Creatinine Ratio (8-20) Glucose (70-100) mg/dL Lactic Acid 1.1 (0.5-2.0) mmol/L Calcium (8.6-10.3) mg/dL Total Bilirubin (0.2-1.0) mg/dL AST (13-39) U/L ALT (7-52) U/L Alkaline Phosphatase (34-104) U/L Troponin I (<0.04) ng/mL Total Protein (6.4-8.9) g/dL Albumin (3.2-5.2) g/dL Globulin (2-4) g/dL Albumin/Globulin Ratio (1-3) Lipase (11.0-82.0) U/L Beta HCG, Quant mIU/mL Urine Color Urine Appearance Urine pH (5-9) Ur Specific [place] (1.010-1.030) Urine Protein (Negative) Urine Ketones (Negative) Urine Blood (Negative) Urine Nitrate (Negative) Urine Bilirubin (Negative) Urine Urobilinogen (Negative) Ur Leukocyte Esterase (Negative) Urine WBC (Auto) (Absent) Urine RBC (Auto) (Absent) Urine Bacteria (Absent) Urine Glucose (Negative) Microbiology and Other Data: Microbiology 06/17/17 16:00 Stool Occult Blood (RANDI) - Final Stool Assess/Plan/Problems-Billing Assessment: Ms. Pedro Childress is a 31 yo female who is G8, P4 and 11 weeks who returns to the hospital less than 24 hrs after being discharged on 06/16/17 with return of nausea/vomiting and epigastric pain. - Patient Problems (1) Abdominal pain Comment: - Improved overnight. - Abd US did not show appendix, no free fluid identified. Hx of cholecystectomy. Renal US did not show stone. - WBC mildly elevated but CRP is normal and she is afebrile. LFTs normal. - Appreciate GI consult. Etiology remains unclear. Continue benadryl and vit B6 for hyperemesis gravidarum. Continue IV protonix, famotidine, and reglan for gastritis. Continue stool softeners and motility agents for constipation. (2) Comment: - Appreciate consultation from Dr. Cobb. - No issues identified with . - Patient does not have outpatient OB care as she doesn't have insurance. - SW consult placed. (3) DVT prophylaxis Comment: - Low risk, encourage ambulation. (4) Full code status Status and Disposition: Inpatient with need for > 2 days LOS. Anticipate discharge to home when medically stable.
[2017-06-19] MEDS: Prenatal Vitamin TAB PO SCH (09:04)
[2017-06-19] MEDS: Docusate CAP* 100 MG PO SCH ×2 (09:04→20:05)
[2017-06-19] MEDS: Metoclopramide IV* 5 MG/ML 2 ML VIAL IV SCH ×3 (09:04→15:46)
[2017-06-19] MEDS: Famotidine TAB* 20 MG PO SCH (20:05)
[2017-06-20] MEDS: Pantoprazole IV* 80 MG in NS 0.9% 250 ML* 250 ML IVPB SCH ×2 (01:52→13:11)
[2017-06-20] MEDS: Pyridoxine TAB* 50 MG PO SCH ×2 (03:52→13:19)
[2017-06-20] MEDS: NS 0.9% 1000 ML* 1,000 ML IV SCH (05:33)
[2017-06-20] MEDS: Sucralfate TAB* 1 GM PO SCH ×2 (06:30→13:19)
[2017-06-20] MEDS: Metoclopramide IV* 5 MG/ML 2 ML VIAL IV SCH ×2 (06:31→12:34)
[2017-06-20] MEDS ORDERED: Miconazole VAG SUPP* 200 MG SUP VAGINAL SCH (09:00)
[2017-06-20] MEDS: Prenatal Vitamin TAB PO SCH (09:15)
[2017-06-20] MEDS: Docusate CAP* 100 MG PO SCH (09:15)
--- NOTE | 2017-06-20 09:56 | PN ---
Subjective Date of Service: 06/20/17 Interval History: Ms. Pedro Childress states that she continues to feel well. She denies further nausea, vomiting or abdominal pain and is tolerating oral intake well. She is eager for discharge to home. Objective Active Medications: Acetaminophen (Tylenol Tab*) 650 mg PO Q6H PRN Diphenhydramine HCl (Benadryl Po*) 25 mg PO Q12H PRN Docusate Sodium (Colace Cap*) 200 mg PO BID LINDA Famotidine (Pepcid Tab*) 40 mg PO 2100 LINDA Sodium Chloride (Ns 0.9% 1000 Ml*) 1,000 mls @ 125 mls/hr IV PER RATE LINDA Pantoprazole Sodium 80 mg/ (Sodium Chloride) 250 mls @ 25 mls/hr IVPB Q10H LINDA Metoclopramide HCl (Reglan Iv*) 5 mg IV AC LINDA Miconazole Nitrate (Miconazole Vag Supp*) 200 mg VAGINAL DAILY LINDA Morphine Sulfate (Morphine Inj (Syringe)*) 2 mg IV Q4H PRN Multivitamins ( Vitamin Tab*) 1 tab PO DAILY LINDA Ondansetron HCl (Zofran Inj*) 4 mg IV Q4H PRN Pyridoxine HCl (Vitamin B6 Tab*) 25 mg PO Q8H LINDA Sucralfate (Carafate*) 1 gm PO 0700,1100,1600 [facility] Vital Signs 06/19/17 06/19/17 06/19/17 12:10 16:11 16:59 Temperature 98.5 F 98.2 F Pulse Rate 72 70 Respiratory 16 20 Rate Blood Pressure 96/52 98/58 (mmHg) O2 Sat by Pulse 100 100 Oximetry 06/19/17 06/19/17 06/19/17 19:45 20:00 23:41 Temperature 98.4 F 98.3 F Pulse Rate 76 70 Respiratory 16 18 16 Rate Blood Pressure 97/57 92/44 (mmHg) O2 Sat by Pulse 100 99 Oximetry 06/20/17 06/20/17 06/20/17 04:14 04:24 07:35 Temperature 99.3 F 99.2 F 98.3 F Pulse Rate 78 85 66 Respiratory 16 16 Rate Blood Pressure 88/47 95/44 97/52 (mmHg) O2 Sat by Pulse 100 98 Oximetry Oxygen Devices in Use Now: None Appearance: Female sitting up in bed in NAD Eyes: No Scleral Icterus Ears/Nose/Mouth/Throat: Mucous Membranes Moist Neck: Trachea Midline Respiratory: Symmetrical Chest Expansion and Respiratory Effort, Clear to Auscultation Cardiovascular: NL Sounds; No Murmurs; No JVD, No Edema Abdominal: NL Sounds; No Tenderness; No Distention Lymphatic: No Cervical Adenopathy Extremities: No Edema Skin: No Rash or Ulcers Neurological: Alert and Oriented x 3, NL Muscle Strength and Tone Nutrition: Taking PO's Result Diagrams: 06/17/17 05:06 06/17/17 05:06 Additional Lab and Data: Lab Results 06/16/17 06/16/17 06/16/17 Range/Units 19:12 19:12 19:12 WBC 14.8 H (3.5-10.8) 10^3/ul RBC 4.45 (4.0-5.4) 10^6/ul Hgb 13.6 (12.0-16.0) g/dl Hct 39 (35-47) % MCV 88 (80-97) fL MCH 31 (27-31) pg MCHC 35 (31-36) g/dl RDW 13 (10.5-15) % Plt Count 286 (150-450) 10^3/ul MPV 9 (7.4-10.4) um3 Neut % (Auto) 75.0 (38-83) % Lymph % (Auto) 19.8 L (25-47) % [place] % (Auto) 4.7 (1-9) % Eos % (Auto) 0.1 (0-6) % Baso % (Auto) 0.4 (0-2) % Absolute Neuts (auto) 11.1 H (1.5-7.7) 10^3/ul Absolute Lymphs (auto) 2.9 (1.0-4.8) 10^3/ul Absolute Monos (auto) 0.7 (0-0.8) 10^3/ul Absolute Eos (auto) 0 (0-0.6) 10^3/ul Absolute Basos (auto) 0.1 (0-0.2) 10^3/ul Absolute Nucleated RBC 0.01 10^3/ul Nucleated RBC % 0 Sodium 133 (133-145) mmol/L Potassium 3.4 L (3.5-5.0) mmol/L Chloride 101 (101-111) mmol/L Carbon Dioxide 21 L (22-32) mmol/L Anion Gap 11 (2-11) mmol/L BUN 5 L (6-24) mg/dL Creatinine 0.45 L (0.51-0.95) mg/dL Est GFR ( Amer) 211.9 (>60) Est GFR (Non-Af Amer) 164.7 (>60) BUN/Creatinine Ratio 11.1 (8-20) Glucose 75 (70-100) mg/dL Lactic Acid (0.5-2.0) mmol/L Calcium 9.2 (8.6-10.3) mg/dL Total Bilirubin 0.50 (0.2-1.0) mg/dL AST 15 (13-39) U/L ALT 19 (7-52) U/L Alkaline Phosphatase 57 (34-104) U/L Troponin I 0.02 (<0.04) ng/mL Total Protein 7.3 (6.4-8.9) g/dL Albumin 3.8 (3.2-5.2) g/dL Globulin 3.5 (2-4) g/dL Albumin/Globulin Ratio 1.1 (1-3) Lipase 107 H (11.0-82.0) U/L Beta HCG, Quant 71792.00 mIU/mL Urine Color Straw Urine Appearance Clear Urine pH 7.0 (5-9) Ur Specific [place] 1.004 L (1.010-1.030) Urine Protein Negative (Negative) Urine Ketones 2+ H (Negative) Urine Blood Negative (Negative) Urine Nitrate Negative (Negative) Urine Bilirubin Negative (Negative) Urine Urobilinogen Negative (Negative) Ur Leukocyte Esterase Trace H (Negative) Urine WBC (Auto) Trace(0-5/hpf) (Absent) Urine RBC (Auto) Trace(0-2/hpf) (Absent) Urine Bacteria Absent (Absent) Urine Glucose Negative (Negative) 06/16/17 Range/Units 19:12 WBC (3.5-10.8) 10^3/ul RBC (4.0-5.4) 10^6/ul Hgb (12.0-16.0) g/dl Hct (35-47) % MCV (80-97) fL MCH (27-31) pg MCHC (31-36) g/dl RDW (10.5-15) % Plt Count (150-450) 10^3/ul MPV (7.4-10.4) um3 Neut % (Auto) (38-83) % Lymph % (Auto) (25-47) % [place] % (Auto) (1-9) % Eos % (Auto) (0-6) % Baso % (Auto) (0-2) % Absolute Neuts (auto) (1.5-7.7) 10^3/ul Absolute Lymphs (auto) (1.0-4.8) 10^3/ul Absolute Monos (auto) (0-0.8) 10^3/ul Absolute Eos (auto) (0-0.6) 10^3/ul Absolute Basos (auto) (0-0.2) 10^3/ul Absolute Nucleated RBC 10^3/ul Nucleated RBC % Sodium (133-145) mmol/L Potassium (3.5-5.0) mmol/L Chloride (101-111) mmol/L Carbon Dioxide (22-32) mmol/L Anion Gap (2-11) mmol/L BUN (6-24) mg/dL Creatinine (0.51-0.95) mg/dL Est GFR ( Amer) (>60) Est GFR (Non-Af Amer) (>60) BUN/Creatinine Ratio (8-20) Glucose (70-100) mg/dL Lactic Acid 1.1 (0.5-2.0) mmol/L Calcium (8.6-10.3) mg/dL Total Bilirubin (0.2-1.0) mg/dL AST (13-39) U/L ALT (7-52) U/L Alkaline Phosphatase (34-104) U/L Troponin I (<0.04) ng/mL Total Protein (6.4-8.9) g/dL Albumin (3.2-5.2) g/dL Globulin (2-4) g/dL Albumin/Globulin Ratio (1-3) Lipase (11.0-82.0) U/L Beta HCG, Quant mIU/mL Urine Color Urine Appearance Urine pH (5-9) Ur Specific [place] (1.010-1.030) Urine Protein (Negative) Urine Ketones (Negative) Urine Blood (Negative) Urine Nitrate (Negative) Urine Bilirubin (Negative) Urine Urobilinogen (Negative) Ur Leukocyte Esterase (Negative) Urine WBC (Auto) (Absent) Urine RBC (Auto) (Absent) Urine Bacteria (Absent) Urine Glucose (Negative) Microbiology and Other Data: Microbiology 06/17/17 16:00 Stool Occult Blood (RANDI) - Final Stool Assess/Plan/Problems-Billing Assessment: Ms. Pedro Childress is a 31 yo female who is G8, P4 and 11 weeks who returns to the hospital less than 24 hrs after being discharged on 06/16/17 with return of nausea/vomiting and epigastric pain. - Patient Problems (1) Abdominal pain Comment: - Resolved for > 24 hours. - Abd US did not show appendix, no free fluid identified. Hx of cholecystectomy. Renal US did not show stone. - WBC mildly elevated but CRP is normal and she is afebrile. LFTs normal. - Appreciate GI consult. Etiology remains unclear. Continue benadryl and vit B6 for hyperemesis gravidarum. Continue PPI x 2 weeks for gastritis. (2) Comment: - Appreciate consultation from Dr. Cobb. - No issues identified with . - Patient does not have outpatient OB care as she doesn't have insurance. - SW consulted. (3) DVT prophylaxis Comment: - Low risk, encourage ambulation. (4) Full code status Status and Disposition: Inpatient with need for > 2 days LOS. Discharge to home.
[2017-06-20 12:18] VITALS: BP 91/54
--- NOTE | 2017-06-21 02:00 | DS ---
DISCHARGE SUMMARY: DATE OF ADMISSION: 06/17/17 DATE OF DISCHARGE: 06/20/17 PRIMARY CARE PHYSICIAN: Ms. Ashleigh Aranda. ATTENDING PHYSICIAN: Dr. Yesenia Mcgarry *(dictation provided by Neris Braun NP) . PRIMARY DIAGNOSES: Nausea, vomiting, abdominal pain with concern for gastritis versus hyperemesis gravidarum. MEDICATIONS AT THE TIME OF DISCHARGE: 1. Omeprazole 20 mg p.o. twice daily x2 weeks. 2. Ondansetron 4 mg as needed for nausea. 3. vitamin daily. 4. Sucralfate 1 g oral with meals as needed for nausea, vomiting, heartburn. 5. Diphenhydramine 25 mg p.o. q.12 hours p.r.n. nausea. 6. Vitamin B6 25 mg q.8 hours p.r.n. nausea. 7. Miconazole 200mg via vaginal suppository for yeast infection. 8. Metoclopramide 5mg p.o. before meals p.r.n nausea HOSPITAL COURSE: Ms. Pedro Childress is a 31-year-old female who is 11 weeks who presented to the hospital after being discharged on 06/16/17 for nausea, vomiting, and abdominal pain with unclear etiology with return of nausea , vomiting, and abdominal pain. Please see the dictated H and P from Dr. Chu Benoit for complete details. In brief, the patient had been admitted from 06/11/17 through 06/16/17 with a similar complaint. She had abdominal ultrasound, which showed no acute abnormality. She had essentially normal white blood cell count and a normal CRP. It was suspected that perhaps her symptoms were related to gastritis and hyperemesis gravidarum. On the day of discharge, she was feeling better. However, shortly after returning home, she again had nausea, vomiting, and epigastric pain and therefore returned to the emergency room. She had a slight elevation in her white blood cell count to 14 , but again her CRP was normal. This leukocytosis resolved by the following day. She continued to have discomfort and therefore, a repeat gastro- enterology consult was obtained. The patient was seen by Dr. Mak and Dr. Giang in the previous hospitalization who both considered gastritis and hyperemesis gravidarum to be the primary likely cause. Dr. Giang continued to suspect that these were the primary possibilities for the cause her symptoms. She was continued on PPI intravenously as well as famotidine, Reglan, sucralfate for gastritis and vitamin B and Benadryl p.r.n. for question of hyperemesis gravidarum. On 06/19/17, the patient began to feel better. She has had no further nausea, vomiting, or epigastric pain since early yesterday. She is tolerating her oral intake well. Ms. Pedro Childress is medically stable for discharge to home. We are encouraging her to continue treatment for what is suspected to be possible gastritis with omeprazole b.i.d. as well as sucralfate. She was also encouraged to continue her B6 and diphenhydramine if her nausea and vomiting returns. In the event that this is hyperemesis gravidarum, it usually resolves by week 10 to 12 of . Ms. Pedro Childress has not had obstetric care for this . She has been seen in consultation by the social workers who have made sure that she has access to care and she has been prescribed a vitamin as well. DISPOSITION: Home. DIET: Regular. ACTIVITY: As tolerated. FOLLOWUP PLANS: 1. Please follow up with Ms. Aranda regarding this hospitalization. 2. Please follow up with OB regarding the . TIME SPENT: Approximately 60 minutes were spent in the discharge of this patient, more than half that time was spent with her at the bedside reviewing the events leading up to this hospitalization, performing the physical examination and reviewing the plan of care. NERIS BRAUN NP [id number]/[facility] #: [id number] [place]
== END 2017-06-20 13:40 | disposition home or self-care (01) | DRG 566 ==
LOC: ED 19:01 → MED 06-17 02:45 → OBSVTOIN 06-18 15:21
PROVIDERS: ADMIT Hospitalist; ATTEND Internal Medicine
DX: O26.891 Other specified pregnancy related conditions, first trimester (principal); Z68.30 Body mass index [BMI] 30.0-30.9, adult; K29.70 Gastritis, unspecified, without bleeding; O21.0 Mild hyperemesis gravidarum; Z3A.11 11 weeks gestation of pregnancy; O99.211 Obesity complicating pregnancy, first trimester; Z83.3 Family history of diabetes mellitus; Z90.49 Acquired absence of other specified parts of digestive tract; Z83.6 Family history of other diseases of the respiratory system
CPT/HCPCS: 36415; 76705; 76775; 76801; 80048; 80053; 81003; 81015; 82272; 83605; 83690; 83735; 84484; 84702; 85025; 85027; 86140; 87086; 93005; A9270-GY; J2270; J2405; J2765

== ENCOUNTER 2017-07-04 10:10 | Emergency (ER) | payer SELFPAY ==
[2017-07-04 13:51] LABS: Hematocrit 38 % (35-47); Mean Corpuscular HGB Conc 34 g/dl (31-36); Mean Corpuscular Hemoglobin 30 pg (27-31); Mean Corpuscular Volume 89 fL (80-97); Mean Platelet Volume 8 um3 (7.4-10.4); Red Blood Count 4.32 10^6/ul (4.0-5.4); Red Cell Distribution Width 13 % (10.5-15); White Blood Count 13.2 10^3/ul (3.5-10.8)
[2017-07-04 14:02] LABS: ALT 33 U/L (7-52); Albumin 3.6 g/dL (3.2-5.2); Alkaline Phosphatase 69 U/L (34-104); Blood Urea Nitrogen 7 mg/dL (6-24); CO2 Carbon Dioxide 23 mmol/L (22-32); Calcium 8.8 mg/dL (8.6-10.3); Chloride 99 mmol/L (101-111); EGFR African American 283.1 (>60); EGFR Non-African American 220.2 (>60); Globulin 3.4 g/dL (2-4); Glucose 81 mg/dL (70-100); Sodium 128 mmol/L (133-145)
[2017-07-04 14:09] LABS: Urine Bacteria Absent (Absent); Urine Bilirubin Negative (Negative); Urine Glucose Negative (Negative); Urine Nitrite Negative (Negative)
[2017-07-04] MEDS ORDERED: Ondansetron INJ* 2 MG/ML VIAL IV ONE (14:15)
[2017-07-04 14:21] LABS: Anion Gap 6 mmol/L (2-11)
[2017-07-04] MEDS: NS 0.9% 1000 ML* 2,000 ML IV ONE ×2 (14:41→15:54)
[2017-07-04] MEDS ORDERED: Al Hydrox/Mg Hydrox/Simet LIQ* 30 ML UDC PO ONE (15:11)
[2017-07-04] MEDS ORDERED: Lidocaine 2% VISCOUS* 15 ML UDC PO ONE (15:11)
--- NOTE | 2017-07-04 15:21 | RAD ---
Indication: 13 weeks 6 days gestation based on June 16, 2017 ultrasound. Abdominal pain. Comparison: June 16, 2017 ultrasound Technique: Transabdominal obstetrical ultrasound. Report: Single intrauterine gestational sac. Solitary pole measuring 7.8 cm crown-rump length corresponding to 13 weeks 6 days gestation. Normal movement and cardiac activity present with heart rate measuring 146 bpm. Qualitatively normal volume of amniotic fluid. Anterior placenta. Unremarkable 3.1 x 1.3 x 3.0 cm RIGHT ovary. 2.9 x 2.0 x 2.9 cm LEFT ovary is remarkable for a unilocular 1.8 cm diameter simple cyst. IMPRESSION: Viable-appearing single intrauterine gestation with appropriate interval growth compared with the June 16, 2017 exam. No perigestational hemorrhage visualized.
[2017-07-04] MEDS ORDERED: NS 0.9% 1000 ML* 1,000 ML IV ONE (15:32)
[2017-07-04] MEDS ORDERED: Potassium Chloride LIQUID* 20 MEQ PACKET PO ONE (17:04)
[2017-07-04] MEDS ORDERED: HYDROcodone/ACETAMIN 5-325 MG* 1 TAB PO ONE (17:09)
[2017-07-04 17:36] VITALS: BP 100/59
--- NOTE | 2017-07-04 18:21 | ED ---
Blanca Douglass Rebecca, scribed for Juve Obrien MD on 07/04/17 at 1413 . - HPI Summary HPI Summary: Pt is a 31 y/o F who presents to ED c/o epigastric abd pain without radiation. Current bout of sx began 2 days ago. At onset, pain was severe ranked 10/10 though now it is 5/10 and characterized as burning. Sx aggravated and alleviated by nothing. Additionally c/o N/V. Denies abdominal cramping, vaginal discharge and vaginal bleeding. Pt is 3 months . . She was evaluated by [facility] ED on 06/16 for similar sx for which she was admitted. - History of Current Complaint Chief Complaint: EDAbdPain Stated Complaint: 3 MONTHS, ABD PAIN, VOMITING Time Seen by Provider: 07/04/17 14:09 Hx Obtained From: Patient Chief Complaint: Pain Onset/Duration: Started Days Ago - 2 days ago, Still Present Severity: Severe - 10/10 Current Severity: Moderate Pain Intensity: 5 Location of Pain: Other: - Epigastric Character: Burning Aggravating Factors: Nothing Alleviating Factors: Nothing Associated Signs and Symptoms: Positive: Nausea, Vomiting. Negative: Vaginal Bleeding or Discharge - Assessment Hx Now: Yes - 3 months Expected Date of Delivery: 01/02/18 Hx Last Menstrual Period: 03/28/17 - Additional Pertinent History Primary Care Physician: [id number] - Allergies/Home Medications Allergies/Adverse Reactions: Allergies Allergy/AdvReac Type Severity Reaction Status Date / Time No Known Allergies Allergy Verified 07/04/17 10:13 PMH/Surg Hx/FS Hx/Imm Hx Endocrine/Hematology History: Denies: Hx Diabetes, Hx Anemia Cardiovascular History: Denies: Hx Hypertension Respiratory History: Denies: Hx Asthma GI History: Reports: Hx Gall Bladder Disease - Cholecysectomy Sensory History: Denies: Hx Contacts or Glasses, Hx Hearing Aid Opthamlomology History: Denies: Hx Contacts or Glasses - Surgical History Surgery Procedure, Year, and Place: cholecystectomy - Immunization History Date of Tetanus Vaccine: unk Date of Influenza Vaccine: unk Infectious Disease History: No Infectious Disease History: Denies: Hx Clostridium Difficile, History Other Infectious Disease, Traveled Outside the [place] in Last 30 Days - Family History Known Family History: Positive: Diabetes, Other - No CA. Negative: Hypertension - Social History Alcohol Use: None Hx Substance Use: No Substance Use Type: Reports: None Hx Tobacco Use: No Smoking Status (MU): Never Smoked Tobacco Review of Systems Positive: Abdominal Pain, Vomiting, Nausea Positive: other - Denies vaginal bleeding. Negative: discharge All Other Systems Reviewed And Are Negative: Yes Physical Exam - Summary Physical Exam Summary: VITAL SIGNS: Reviewed. GENERAL: ~Patient is a well-developed and nourished female who is lying comfortable in the stretcher. ~Patient is not in any acute respiratory distress. HEAD AND FACE: No signs of trauma. ~No ecchymosis, hematomas or skull depressions. No sinus tenderness. EYES: PERRLA, EOMI x 2, No injected conjunctiva, no nystagmus. EARS: Hearing grossly intact. Ear canals and tympanic membranes are within normal limits. MOUTH: Oropharynx within normal limits. NECK: Supple, trachea is midline, no adenopathy, no JVD, no carotid bruit, no c- spine tenderness, neck with full ROM. CHEST: Symmetric, no tenderness at palpation LUNGS: Clear to auscultation bilaterally. No wheezing or crackles. CVS: Regular rate and rhythm, S1 and S2 present, no murmurs or gallops appreciated. ABDOMEN: Soft, epigastric tenderness. No signs of distention. No rebound no guarding, and no masses palpated. Bowel sounds are normal. EXTREMITIES: FROM in all major joints, no edema, no cyanosis or clubbing. NEURO: Alert and oriented x 3. No acute neurological deficits. Speech is normal and follows commands. SKIN: Dry and warm - Physical Exam Triage Information Reviewed: Yes Vital Signs Reviewed: Yes Diagnostics - Vital Signs Vital Signs Temp Pulse Resp BP Pulse Ox 07/04/17 13:00 82 111/68 100 07/04/17 12:58 78 118/74 100 07/04/17 12:30 76 119/74 99 07/04/17 12:19 78 99 07/04/17 12:17 122/60 07/04/17 12:06 98.1 F 66 16 103/68 99 07/04/17 10:13 97.8 F 84 18 104/68 100 - Laboratory Lab Results: Lab Results 07/04/17 07/04/17 Range/Units 13:40 13:40 WBC 13.2 H (3.5-10.8) 10^3/ul RBC 4.32 (4.0-5.4) 10^6/ul Hgb 13.0 (12.0-16.0) g/dl Hct 38 (35-47) % MCV 89 (80-97) fL MCH 30 (27-31) pg MCHC 34 (31-36) g/dl RDW 13 (10.5-15) % Plt Count 404 (150-450) 10^3/ul MPV 8 (7.4-10.4) um3 Sodium 128 L (133-145) mmol/L Potassium Pending Chloride 99 L (101-111) mmol/L Carbon Dioxide 23 (22-32) mmol/L Anion Gap Pending BUN 7 (6-24) mg/dL Creatinine 0.35 L (0.51-0.95) mg/dL Est GFR ( Amer) 283.1 (>60) Est GFR (Non-Af Amer) 220.2 (>60) BUN/Creatinine Ratio 20.0 (8-20) Glucose 81 (70-100) mg/dL Calcium 8.8 (8.6-10.3) mg/dL Total Bilirubin 0.80 (0.2-1.0) mg/dL AST Pending ALT 33 (7-52) U/L Alkaline Phosphatase 69 (34-104) U/L Total Protein 7.0 (6.4-8.9) g/dL Albumin 3.6 (3.2-5.2) g/dL Globulin 3.4 (2-4) g/dL Albumin/Globulin Ratio 1.1 (1-3) Result Diagrams: 07/04/17 13:40 07/04/17 14:45 Lab Statement: Any lab studies that have been ordered have been reviewed, and results considered in the medical decision making process. - Ultrasound No standard instances Ultrasound Interpretation: No Acute Changes - US: Viable-appearing single intrauterine gestation with appropriate interval growth compared with the June 16, 2017 exam. No perigestational hemorrhage visualized. Ultrasound Interpretation Completed By: Radiologist Re-Evaluation - Re-Evaluation First Eval Re-Evaluation Time: 17:10 Change: Improved Comment: She is doing slightly better. Discussed D/C plan. Course/Dx - Course Assessment/Plan: Pt is a 31 y/o F who presents to ED c/o epigastric abd pain without radiation. Current bout of sx began 2 days ago. At onset, pain was severe ranked 10/10 though now it is 5/10. Sx aggravated and alleviated by nothing. Additionally c/o N/V. Denies abdominal cramping, vaginal discharge and vaginal bleeding. Pt is 3 months . . She was evaluated by [facility] ED on 06/16 for similar sx for which she was admitted. Test results shows a WBC of 13.2 , sodium 128, potassium of 3.4. UA negative for UTI. Pelvic US reveals a viable- appearing single intrauterine gestation with appropriate interval growth compared with the June 16, 2017 exam. No perigestational hemorrhage visualized. Pt reports that she is having epigastric burning with sour taste in her mouth, therefore the pt was given a GI cocktail, IV fluids and Zofran for N/V and Hume for pain. After this medication, the sx have improved and the pt feels better with no N/V and the burning sensation has resolved. 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 She is A&Ox3 and hemodynamically stable. She is able to tolerate PO without any N/V. - Differential Diagnosis/HQI/PQRI: Threatened , Cholecystitis, Cholelithiasis, Intrauterine - Diagnoses Provider Diagnoses: Epigastric pain, 12 weeks gestation of Discharge - Discharge Plan Condition: Stable Disposition: HOME Prescriptions: Omeprazole CAP* [Prilosec CAP* 20 MG] 40 mg PO DAILY #20 cap Pyridoxine TAB* [Vitamin B6 TAB*] 25 mg PO Q8H #20 tab Sucralfate TAB* [Carafate*] 1 gm PO AC PRN #15 tab PRN Reason: Heartburn Patient Education Materials: Epigastric Pain (ED) Referrals: Ashleigh Aarnda PA [Primary Care Provider] - 3 Days The documentation as recorded by the Blanca pina Rebecca accurately reflects the service I personally performed and the decisions made by Micah nelson Walter, MD.
== END 2017-07-04 17:36 | disposition home or self-care (01) ==
LOC: ED 10:10
DX: R10.13 Epigastric pain (principal); O26.891 Other specified pregnancy related conditions, first trimester; R11.2 Nausea with vomiting, unspecified; Z3A.12 12 weeks gestation of pregnancy
CPT/HCPCS: 36415; 76815; 80053; 81003; 81015; 85027; 87077; 87086; 87186; 96374; 99282; A9270-GY; J2405

== ENCOUNTER 2017-07-20 00:33 | Inpatient (IN) | payer SELFPAY ==
[2017-07-20] MEDS ORDERED: Metoclopramide IV* 5 MG/ML 2 ML VIAL IV ONE ×2 (00:47→06:12)
[2017-07-20] MEDS ORDERED: NS 0.9% 1000 ML* 1,000 ML IV ONE ×2 (00:57→08:15)
[2017-07-20 01:42] LABS: Hematocrit 39 % (35-47); Hemoglobin 13.2 g/dl (12.0-16.0); Mean Corpuscular HGB Conc 34 g/dl (31-36); Mean Corpuscular Hemoglobin 30 pg (27-31); Mean Corpuscular Volume 88 fL (80-97); Mean Platelet Volume 8 um3 (7.4-10.4); Red Blood Count 4.45 10^6/ul (4.0-5.4); Red Cell Distribution Width 14 % (10.5-15); White Blood Count 12.6 10^3/ul (3.5-10.8)
[2017-07-20 01:54] LABS: Albumin 3.8 g/dL (3.2-5.2); BUN/Creatinine Ratio 10.2 (8-20); Calcium 9.4 mg/dL (8.6-10.3); EGFR Non-African American 149.3 (>60); Globulin 3.5 g/dL (2-4); Potassium 3.7 mmol/L (3.5-5.0); Total Bilirubin 0.5 mg/dL (0.2-1.0); Total Protein 7.3 g/dL (6.4-8.9)
[2017-07-20] MEDS ORDERED: Famotidine IV* 10 MG/ML 2 ML (20 mg) IV ONE (04:42)
[2017-07-20] MEDS ORDERED: oxyCODONE/Acetamin 5/325 MG* TAB PO ONE (06:04)
[2017-07-20] MEDS ORDERED: Lidocaine 2% VISCOUS* 15 ML UDC PO ONE (06:08)
[2017-07-20] MEDS ORDERED: Al Hydrox/Mg Hydrox/Simet LIQ* 30 ML UDC PO ONE (06:10)
--- NOTE | 2017-07-20 07:50 | ED ---
Jaime Douglass Thomas, scribed for Tsering Garcia MD on 07/20/17 at 0433 . Abdominal Pain/Female - HPI Summary HPI Summary: The pt is a 31 y/o 16 week , Greek speaking F accompanied by flight service agent presenting to the ED c/o abd pain that began today at 00:00. The pain is described as aching and sharp. The pt rates the pain 10/10. The pain is aggravated and alleviated by nothing. The patient has treated the pain with nothing [employer]ESS [employer]ER. Pt additionally c/o nausea and vomiting. Pt denies vaginal bleeding , uterine cramping, and vaginal discharge. PMHx: previously healthy. PSHx: cholecystectomy. SHx: no smoking, no alcohol use, no illicit drug use. FHx: DM. She denies any problems with this . Per OBGYN is in [place], [place], Dr. Zheng. Her last BM was yesterday. She is not on vitamins. LNMP: 2016. G=8, P=4, A=3. Pt was admitted to [facility] 06/17/17 with similar presentation, Rx'd with PPI, zofran, sucralfate. Pt was followed by OB and had GI consult during this adm. Pt had another ED visit after this adm. Pt states she finished all prescribed medications. Pt is doubled over, moaning in pain on initial presentation. Pt is originally from [facility]. Her is a rubber covering machine operator. - History of Current Complaint Chief Complaint: EDAbdPain Stated Complaint: ABD PAIN/VOMITING Time Seen by Provider: 07/20/17 04:16 Hx Obtained From: Patient, Family/Food Specialist - flight service agent present Hx Last Menstrual Period: 03/28/17 ?: Yes Onset/Duration: Lasting Hours - today at 00:00, Still Present Timing: Constant Severity Initially: Severe Severity Currently: Severe Pain Intensity: 10 Pain Scale Used: 0-10 Numeric Location: Epigastric Radiates: No Character: Sharp, Other: - Ache Aggravating Factor(s): Nothing Alleviating Factor(s): Nothing Associated Signs and Symptoms: Positive: Nausea, Vomiting. Negative: Vaginal Bleeding, Vaginal Discharge, Other: - NEG: uterine cramping Allergies/Adverse Reactions: Allergies Allergy/AdvReac Type Severity Reaction Status Date / Time No Known Allergies Allergy Verified 07/20/17 00:42 Home Medications: Home Medications Omeprazole CAP* [Prilosec CAP* 20 MG] 40 mg PO DAILY 07/20/17 [History Confirmed 07/20/17] Sucralfate TAB* [Carafate*] 1 gm PO TID WITH MEALS PRN 07/20/17 [History Confirmed 07/20/17] PMH/Surg Hx/FS Hx/Imm Hx Previously Healthy: No Endocrine/Hematology History: Denies: Hx Diabetes, Hx Anemia Cardiovascular History: Denies: Hx Hypertension Respiratory History: Denies: Hx Asthma GI History: Reports: Hx Gall Bladder Disease - Cholecystectomy Sensory History: Denies: Hx Contacts or Glasses, Hx Hearing Aid Opthamlomology History: Denies: Hx Contacts or Glasses - Surgical History Surgery Procedure, Year, and Place: cholecystectomy - Immunization History Date of Tetanus Vaccine: unk Date of Influenza Vaccine: unk Infectious Disease History: No Infectious Disease History: Denies: Hx Clostridium Difficile, History Other Infectious Disease, Traveled Outside the in Last 30 Days - Family History Known Family History: Positive: Diabetes, Other - No CA. Negative: Hypertension - Social History Lives: With Family Alcohol Use: None Hx Substance Use: No Substance Use Type: Reports: None Hx Tobacco Use: No Smoking Status (MU): Never Smoked Tobacco Review of Systems Negative: Fever Positive: Abdominal Pain - 10/10, aching and sharp, Vomiting, Nausea Negative: discharge, other - NEG: vaginal bleeding, uterine cramping All Other Systems Reviewed And Are Negative: Yes Physical Exam Triage Information Reviewed: Yes Vital Signs On Initial Exam: Initial Vitals Temp Pulse Resp BP Pulse Ox 97.7 F 103 20 106/74 97 07/20/17 00:39 07/20/17 00:39 07/20/17 00:39 07/20/17 00:39 07/20/17 00:39 Vital Signs Reviewed: Yes Appearance: Positive: Well-Appearing, Well-Nourished, Pain Distress Skin: Positive: Warm, Skin Color Reflects Adequate Perfusion Head/Face: Positive: Normal Head/Face Inspection Eyes: Positive: Conjunctiva Clear ENT: Positive: Normal ENT inspection Neck: Positive: Supple Respiratory/Lung Sounds: Positive: Clear to Auscultation, Breath Sounds Present , Other - No respiratory distress Cardiovascular: Positive: RRR, Pulses are Symmetrical in both Upper and Lower Extremities, Other - Brisk cap refill. Negative: Murmur Abdomen Description: Positive: Soft, Other: - epigastric tenderness, no guarding , no rebound, no peritoneal signs, no McBurney's point tenderness Pelvic Exam: Positive: other - internal exam not done, fundus palp 2 FF below umbilicus, nontender Musculoskeletal: Positive: Strength/ROM Intact Neurological: Positive: Sensory/Motor Intact, Facial Symmetry, Speech Normal, Other - Motor intact Psychiatric: Positive: Normal - Luke Coma Scale Coma Scale Total: 15 Diagnostics - Vital Signs Vital Signs Temp Pulse Resp BP Pulse Ox 07/20/17 03:00 84 100/74 96 07/20/17 02:30 86 101/69 99 07/20/17 02:00 76 100/58 100 07/20/17 01:30 87 103/65 98 07/20/17 01:21 87 97 07/20/17 01:19 106/65 07/20/17 00:42 97.7 F 103 20 106/74 97 07/20/17 00:39 97.7 F 103 20 106/74 97 - Laboratory Lab Results: Lab Results 07/20/17 07/20/17 Range/Units 01:00 01:00 WBC 12.6 H (3.5-10.8) 10^3/ul RBC 4.45 (4.0-5.4) 10^6/ul Hgb 13.2 (12.0-16.0) g/dl Hct 39 (35-47) % MCV 88 (80-97) fL MCH 30 (27-31) pg MCHC 34 (31-36) g/dl RDW 14 (10.5-15) % Plt Count 366 (150-450) 10^3/ul MPV 8 (7.4-10.4) um3 Neut % (Auto) 76.6 (38-83) % Lymph % (Auto) 19.0 L (25-47) % [place] % (Auto) 4.1 (1-9) % Eos % (Auto) 0.1 (0-6) % Baso % (Auto) 0.2 (0-2) % Absolute Neuts (auto) 9.7 H (1.5-7.7) 10^3/ul Absolute Lymphs (auto) 2.4 (1.0-4.8) 10^3/ul Absolute Monos (auto) 0.5 (0-0.8) 10^3/ul Absolute Eos (auto) 0 (0-0.6) 10^3/ul Absolute Basos (auto) 0 (0-0.2) 10^3/ul Absolute Nucleated RBC 0.01 10^3/ul Nucleated RBC % 0.1 Sodium 133 (133-145) mmol/L Potassium 3.7 (3.5-5.0) mmol/L Chloride 101 (101-111) mmol/L Carbon Dioxide 23 (22-32) mmol/L Anion Gap 9 (2-11) mmol/L BUN 5 L (6-24) mg/dL Creatinine 0.49 L (0.51-0.95) mg/dL Est GFR ( Amer) 192.0 (>60) Est GFR (Non-Af Amer) 149.3 (>60) BUN/Creatinine Ratio 10.2 (8-20) Glucose 105 H (70-100) mg/dL Calcium 9.4 (8.6-10.3) mg/dL Total Bilirubin 0.50 (0.2-1.0) mg/dL AST 15 (13-39) U/L ALT 24 (7-52) U/L Alkaline Phosphatase 73 (34-104) U/L Total Protein 7.3 (6.4-8.9) g/dL Albumin 3.8 (3.2-5.2) g/dL Globulin 3.5 (2-4) g/dL Albumin/Globulin Ratio 1.1 (1-3) Result Diagrams: 07/20/17 01:00 07/20/17 01:00 Lab Statement: Any lab studies that have been ordered have been reviewed, and results considered in the medical decision making process. Re-Evaluation - Re-Evaluation Second Eval Re-Evaluation Time: 07:45 - no vomiting, attempting heart tones Change: Improved Third Eval Re-Evaluation Time: 08:30 - continues with vomiting, and pain, unable to do FHR , will do US. Change: Worse Abdominal Pain Fem Course/Dx - Course Course Of Treatment: Pt with severe epigastric pain and vomiting, s/p erin, with intractable vomiting in ED and severe pain. Due to pt's used other meds for nausea, prior to zofran without success. Also used caution regarding narcotics due to , and did not administer toradol or NSAIDS. Ordered po percocet, but pt vomiting too much to tolerate po. Pt is s/p cholecystectomy. US shows viable 16 week fetus. Labs with slightly elevated wbc, normal K+, normal renal function. Dr. Adams will admit, with OB consulting. - Diagnoses Differential Diagnosis: Positive: Appendicitis, Pancreatitis, Peptic Ulcer Disease, Provider Diagnoses: Acute epigastric pain, , Hyperemesis - Provider Notifications Discussed Care Of Patient With: Shaheen Lizarraga - He will consult. May try zofran IV since other antiemetics have not helped Time Discussed With Above Provider: 08:30 Instructed by Provider To: Admit As Observation Discharge - Discharge Plan Condition: Stable Disposition: ADMITTED TO [facility] The documentation as recorded by the Jaime pina Thomas accurately reflects the service I personally performed and the decisions made by , Tsering Garcia MD.
[2017-07-20] MEDS ORDERED: Ondansetron INJ* 2 MG/ML VIAL IV ONE (08:30)
[2017-07-20 09:00] LABS: Urine Bilirubin Negative (Negative); Urine Glucose Negative (Negative); Urine Nitrite Negative (Negative)
[2017-07-20] MEDS ORDERED: diPHENhydraMINE IV* 25 MG in NS 0.9% 50 ML* 50 ML IVPB SCH (09:00)
--- NOTE | 2017-07-20 09:27 | RAD ---
INDICATION: Early with pain COMPARISON: Limited sonogram July 04, 2017 TECHNIQUE: A limited sonogram was performed. A full anatomic survey is not completed but can be performed when the patient is slightly further along in her . FINDINGS: There is a single intrauterine gestation in variable presentation with the placenta in an anterior location. There is no evidence of placenta previa. cardiac activity is documented at 135 beats for minute. There is movement. The amount of fluid index appears normal. The cervix is closed measuring 4.8 cm. The estimated gestational age based on biparietal diameter, head circumference, abdominal circumference, and femur length corresponds to 16 weeks 2 days, 16 weeks 3 days, 16 weeks 4 days, and 16 weeks 1 day resulting a composite value of 16 weeks 3 days. There is been normal interval growth. Limited anatomy evaluation reveals stomach, kidneys, cord insertion, bladder, and a 3 vessel cord. The adnexal regions appear normal. IMPRESSION: A LIMITED SCAN DEMONSTRATES NO SONOGRAPHIC ABNORMALITIES AND NORMAL INTERVAL GROWTH. THE ESTIMATED GESTATIONAL AGE IS 16 WEEKS 3 DAYS. A FULL ANATOMIC SCAN WAS NOT PERFORMED
[2017-07-20] MEDS: diPHENhydraMINE IV* 50 MG/ML 1 ml VIAL (BENADRYL) IV SCH ×3 (09:50→20:42)
[2017-07-20] MEDS: Pyridoxine TAB* 50 MG PO SCH ×2 (12:02→17:02)
[2017-07-20] MEDS: Sucralfate TAB* 1 GM PO SCH ×4 (13:00→20:45)
[2017-07-20] MEDS: Pantoprazole IV* 40 MG IV SCH (13:00)
[2017-07-20] MEDS: Metoclopramide IV* 5 MG/ML 2 ML VIAL IV SLOW PU SCH ×2 (13:00→15:59)
[2017-07-20] MEDS: NS 0.9% 1000 ML* 1,000 ML IV SCH ×2 (13:00→19:24)
--- NOTE | 2017-07-20 14:55 | PN ---
Progress Note - Progress Note Date of Service: 07/20/17 - OB Consult SOAP: OB consult Pt seen and examined with Dr. Giang from GI with translation service at bedside. Subjective: Pt is a 31yo at about 16 wks EGA. Pt has been seen in this ER and admitted at least once previously over the past 6 wks with severe epigastric pains and N/V. Initially thought to be related to hyperemesis gravidarum and possibly gastritis. She has been treated with reglan and zofran previously. Pt reports she was doing well for the past two weeks, but yesterday AM she started having the pains again, and this was accompanied by N/V. During this time, she was eating normally. Last normal bowel movement was yesterday. Pt was given Reglan x2 in ER and two IV fluid bags overnight, and pain was not really improved. Reportedly she was seen in the [place] ER, possibly admitted but records are not available yet. Pt's history is not very helpful regarding this or which medications she has been taking. Pt did establish care in [place] with Dr. Zheng, but it is not clear why she has not been going to [facility] for continuity. ROS: +GI Negative for sx, denies VB. PMH: none PSH: cholecystectomy POB: x3, previously pregnancies without these symptoms Objective: [ Vital Signs: Temp Pulse Resp BP Pulse Ox 98.4 F 69 10 153/80 95 07/20/17 12:47 07/20/17 13:30 07/20/17 13:30 07/20/17 13:30 07/20/17 13:30 Gen: NAD, supine in bed, WD/WN Abd: localizes her pain to epigastrium, but no apparent rebound/guarding with abdominal exam Pelvic U/S shows normal appearing 16 wk .] Assessment: 16 wks EGA with recurrent episodes of severe epigastric pain, nausea/vomiting. No apparent problems with the actual at this point. Unlikely hyperemesis gravidarum is the cause of her issues, especially considering her gestation and that the symptoms resolve and the recurred weeks later. Plan: Discussed with pt and Dr. Giang. I would agree with continued symptomatic treatment with Reglan, phenergan, zofran as needed. Zofran is considered 2nd line for , but very reasonable considering her persistent issues. Continue IV hydration. GI may want to proceed with endoscopy considering the persistent symptoms. We did discuss fentanyl can be reasonably used in the 2nd trimester for a brief procedure like this. Antibiotics if h. pylori is diagnosed should be reasonable. Please feel free to contact OB at any time if there are any questions about medications. Thank you for this consult.
[2017-07-20] MEDS ORDERED: NS 0.9% 500 ML BAG* 500 ML IV ONE (15:21)
--- NOTE | 2017-07-20 15:21 | RAD ---
HISTORY: Epigastric pain COMPARISONS: June 16, 2017 TECHNIQUE: Multiple transverse and longitudinal ultrasound images were obtained of the abdomen using grayscale, color Doppler, and spectral Doppler imaging. FINDINGS: LIVER: The liver is normal in shape, size, contour, and echogenicity. There are no focal parenchymal masses. There is normal hepatopedal flow of the portal vein on Doppler imaging. BILIARY TREE: There is no intrahepatic or extrahepatic biliary dilatation. The common duct measures 0.2 cm. GALLBLADDER: The patient is status post cholecystectomy. PANCREAS: The head of the pancreas is unremarkable. The tail of the pancreas is not well visualized secondary to overlying bowel gas. SPLEEN: The spleen is normal in shape, size, contour, and echotexture. The spleen measures 9.2 x 4.3 x 4.1 cm. RIGHT KIDNEY: The right kidney is normal in shape, size, contour, and echogenicity. There is no hydronephrosis or nephrolithiasis. The right kidney measures 11 x 4.2 x 3.7 cm. LEFT KIDNEY: The left kidney is normal in shape, size, contour, and echogenicity. There is no hydronephrosis or nephrolithiasis. The left kidney measures 11.6 x 6 x 4.3 cm. AORTA AND IVC: The aorta and IVC are unremarkable. FLUID: There are no pleural effusions. There is no free fluid within the hepatorenal recess. OTHER FINDINGS: None. IMPRESSION: STATUS POST CHOLECYSTECTOMY. NO ACUTE SONOGRAPHIC PATHOLOGY OF THE VISUALIZED PORTION OF THE ABDOMEN.
[2017-07-20] MEDS: Ondansetron INJ* 2 MG/ML VIAL IV PRN (20:43)
--- NOTE | 2017-07-20 21:41 | HP ---
CC: Dr. Zheng [place]; Dr. Lizarraga; Dr. Giang * HISTORY AND PHYSICAL: DATE OF ADMISSION: 07/20/17 PRIMARY CARE PROVIDER: She does not have a primary care provider, but her primary LABELING STRATEGIST specialist is Dr. Zheng CONSULTING LABELING STRATEGIST SYSTEMS SUPPORT ENGINEER: Dr. Lizarraga. CONSULTING LABOR AND DELIVERY REGISTERED NURSE: Dr. Giang. MY ATTENDING PHYSICIAN WHILE IN THE HOSPITAL: Dr. Yesenia Mcgarry * (report dictated by Julian Partida NP). CHIEF COMPLAINT: Epigastric pain. HISTORY OF PRESENT ILLNESS: Ms. Vasquez is a 31-year-old female patient, who has been in multiple hospitals with complaints of epigastric pain, recently in [facility], she is not sure which one, but she was there for 2 to 3 days , received treatment and got better. She has been now home for the last week, doing well, then yesterday around noon time, developed epigastric burning discomfort going up into her chest with associated nausea and vomiting. She vomited twice and the pain had become unbearable, so she decided to come to the ER. She states the pain is constant, she denies it coming on suddenly, it just got worse and worse throughout the day and she says that, she has been avoiding spicy food. She has not been taking any NSAIDs. She says to me, she does not drink coffee. She denied any coffee-ground emesis or any blood in the vomit. She says she does not have any fevers or chills. There has been no diarrhea. She says she has been taking medications as prescribed, she does not know which ones. We are going to try to call pharmacy in [place] to see what meds were prescribed and what she has been taking, and we will try to get records from [place], but she came in, was evaluated. Despite several rounds of Reglan and antiemetics and pain medications, she still continued to have epigastric discomfort, so we were asked to evaluate in admission. PAST MEDICAL HISTORY: Significant for, she is 8, para 4. PAST SURGICAL HISTORY: She has had gallbladder extraction. MEDICATIONS: The home meds according to the list we were able to obtain now, says no medications, but again she says she is taking some medications, we are going to try to confirm this list with her pharmacy in [place]. ALLERGIES TO MEDICATIONS: Include no known drug allergies. FAMILY HISTORY: Her mother is diabetic. Father had a history of lung disease. SOCIAL HISTORY: She does not smoke. She denies alcohol. Surrogate decision maker is her . REVIEW OF SYSTEMS: There is no documented fever. She denied having any significant weight change. No double vision. No ear discharge. Not having any rhinorrhea. No sore throat. No thyroid enlargement. There is no chest pain. There is epigastric pain. There was episode of nausea and vomiting. No dysuria, no frequency. There was no seizure, no loss of consciousness. No pruritus and no skin ulcerations. Review of 14 systems completed, all others negative. PHYSICAL EXAMINATION GENERAL: At this time, Ms. Vasquez is a 31-year-old female patient. She is sitting in the ER stretcher. She does not really appear to be in an acute distress. She is awake and she is alert. VITAL SIGNS: Reveal blood pressure 98/76, pulse 93, respirations 18, O2 sat 97% , and temperature 97.7. HEENT: Head is atraumatic. Eyes: EOMs are intact. Sclerae anicteric and not pale. Throat: Oral mucosa appears to be moist. No oropharyngeal erythema. NECK: Supple. LUNGS: Clear to auscultation bilaterally. No wheezes, rales, or rhonchi. HEART: Sounds S1, S2. Regular rate and rhythm. No murmurs, rubs, or gallops. ABDOMEN: Soft, flat, little bit tenderness in the epigastric area, but there was no sign of acute abdomen. EXTREMITIES: Pulses were 2+ throughout. She is able to move all 4 extremities with 5/5 strength. NEUROLOGIC: The patient is awake, alert, and oriented x3. Tongue midline. Supervisor Operations were equal. No gross focal deficits. SKIN: Intact. DIAGNOSTIC STUDIES/LAB DATA: Labs today revealed WBC 12.6, RBC 4.45, hemoglobin 13.2, hematocrit 39, platelet count of 366. potassium 3.7, chloride of 101, bicarb 23, BUN 5, creatinine 0.49, glucose of 105, calcium 9.4. Total bili 0.5, AST 15, ALT 24, alk phos 73. Albumin is 3.8. Urine was obtained, which showed +2 ketones. She had a ultrasound done today, which revealed impression: Limited scan demonstrates no sonographic abnormalities and normal interval growth, estimated gestational age is 16 weeks 3 days. cardiac activity is at around 135 beats a minute. Old medical records reviewed. ASSESSMENT AND PLAN: Ms. Vasquez is 31-year-old female patient coming in to the hospital today with complaints of epigastric pain. She will be admitted under observation status for: 1. Epigastric pain. Etiology of this is unclear. I did touch base with Dr. Lizarraga, who does not really think that this is hyperemesis gravidarum. The plan right is now to put her on Carafate, Protonix b.i.d., Reglan as needed, Zofran, IV fluids. We will get an LABELING STRATEGIST consult from Dr. Lizarraga. We will have Gastroenterology evaluate the patient as well from there standpoint. I am going to send off a stool for Helicobacter pylori. I will also get an ultrasound of the abdomen, this was done about a month ago, but just to make sure there has not been any changes. I think also, we will get records from Dr. Zheng. In addition to this, records from [place], this will help us to see what meds she was discharged on and to confirm if she has been taking them and we will continue to treat her. 2. 16-week . Again, I will defer management of this to the LABELING STRATEGIST while here. Her ultrasound appeared to be normal. She needs to follow with Dr. Zheng. 3. DVT prophylaxis. We will order SCDs. 4. Fluids, electrolytes, and nutrition. She can have clear liquid diet. 5. Code status. Full code. TIME SPENT: On the admission 60 minutes; greater than half the time spent face- to- face with the patient obtaining my history and physical, other half time spent going over the plan of care with the patient and implementing the plan of care. I did discuss the plan of care with my attending, Dr. Mcgarry; she is in agreement. JULIAN PARTIDA, FABI [id number]/CPS #: [id number] MTDD
[2017-07-20] MEDS: Acetaminophen TAB* 325 MG PO PRN (22:31)
--- NOTE | 2017-07-20 22:58 | CONS ---
CONSULTATION REPORT: DATE OF CONSULTATION: 07/20/17 REASON FOR CONSULTATION: Episodic epigastric pain with nausea and vomiting. NARRATIVE: This is a 31-year-old Polish speaking woman who is in the second trimester of her who has had recurrent admissions for nausea, vomiting, and epigastric pain. She was seen approximately a month ago during the hospitalization for this very same process. She has laboratory data, which was unremarkable; ultrasound, which was unremarkable including a ultrasound, which was normal. She was treated empirically with acid suppressive therapy, antiemetics. She was thought to be constipated as well and was given a stool softener. Eventually, she improved but then was readmitted a week or 2 later when her symptoms recurred. She has since been out of that hospital for a month and she states through the aid of a crossbow maker that we use, that for about 2 weeks she was symptom-free after being prescribed medicine. The details of those medicines were unclear. It sounds as though they were prescribed at another institution. Starting yesterday, her epigastric pain started back again, described as burning, associated with nausea and vomiting. She therefore presented to the emergency room where she was treated with combination of Reglan, Maalox, Benadryl, lidocaine and eventually Zofran with some mild improvement. She was also given oxycodone. Her laboratory data here at this admission was notable for mild leukocytosis with white count of 12.6, hemoglobin of 13.2. Normal liver panel, lipase of 66, amylase of 96. She did have a ultrasound, which was normal and is currently getting an abdominal ultrasound. She had been before and states that she never had problems with abdominal pain, nausea, or vomiting. It does not appear that she has lost any weight. She initially started through a crossbow maker that she was having constipation, but then states that she did have a normal bowel movement yesterday. She has had no GI bleeding or fevers or jaundice. PAST SURGICAL HISTORY: Includes cholecystectomy. MEDICATIONS: Medicines are unclear at this time, we are in the process of obtaining medical release of records from her previous hospital stay about a week ago. This is from another center. We believe she was on Prilosec and Carafate. PHYSICAL EXAMINATION: On physical exam, she is a pleasant woman, in no acute distress. Temperature is 98.4, blood pressure is 153/80, heart rate is 69 and regular. She is anicteric. She appears clinically euvolemic. Cardiac exam reveals a regular rhythm. Lungs are clear. Abdomen is soft. The size is appropriate for gestational age. There is some tenderness in the epigastrium without rebound or guarding. There is no organomegaly. Extremities reveal no edema. IMPRESSION: A 31-year-old woman currently in the second trimester of with recurrent episodes of abdominal pain, nausea, vomiting. Her evaluation has included normal biochemical markers ruling out entities such as acute pancreatitis or biliary disease (she is status post a cholecystectomy). Now that she is in the second trimester, hyperemesis gravidarum seems much less likely. We are in the process of getting medical records from a previous evaluation. We are going to do an abdominal ultrasound. We are also going to check stool for H. pylori as her ethnicity would mean that she is a higher risk for that infection. I did speak to her as well as our health and safety technician about proceeding with an endoscopy. Even though it may not be very high yield given the ongoing nature of her symptoms, I think it is becoming more likely that that will need to be done. I discussed conscious sedation with our ORNAMENTAL BRICK INSTALLER, Dr. Lizarraga, who believes fentanyl would be a fine sedative to give and we can proceed in that fashion. We will await for her other studies to conclude before initiating that as well as to see her response to current symptomatic care and records from her previous evaluation. [id number]/[facility] #: [id number] MTDD
[2017-07-21] MEDS: Pyridoxine TAB* 50 MG PO SCH ×3 (00:17→16:26)
[2017-07-21] MEDS: Pantoprazole IV* 40 MG IV SCH ×2 (00:23→11:18)
[2017-07-21] MEDS: diPHENhydraMINE IV* 50 MG/ML 1 ml VIAL (BENADRYL) IV SCH ×4 (02:54→22:28)
[2017-07-21] MEDS: Ondansetron INJ* 2 MG/ML VIAL IV PRN ×2 (03:17→22:27)
[2017-07-21 05:49] LABS: Hematocrit 34 % (35-47); Hemoglobin 11.5 g/dl (12.0-16.0); Mean Corpuscular HGB Conc 34 g/dl (31-36); Mean Corpuscular Hemoglobin 30 pg (27-31); Mean Corpuscular Volume 88 fL (80-97); Mean Platelet Volume 8 um3 (7.4-10.4); Red Blood Count 3.81 10^6/ul (4.0-5.4); Red Cell Distribution Width 13 % (10.5-15); White Blood Count 11.6 10^3/ul (3.5-10.8)
[2017-07-21 06:09] LABS: Calcium 8.2 mg/dL (8.6-10.3); EGFR African American 242.7 (>60); EGFR Non-African American 188.7 (>60); Potassium 3.4 mmol/L (3.5-5.0)
[2017-07-21] MEDS: Metoclopramide IV* 5 MG/ML 2 ML VIAL IV SLOW PU SCH ×3 (08:40→16:26)
--- NOTE | 2017-07-21 09:14 | PN ---
Subjective Date of Service: 07/21/17 Interval History: HOSPITALIST PROGRESS NOTE Patient seen and examined at bedside. She still c/o epigastric pain associated with multiple episodes of vomiting overnight. Family History: Unchanged from Admission Social History: Unchanged from Admission Past Medical History: Unchanged from Admission Objective Active Medications: Acetaminophen (Tylenol Tab*) 650 mg PO Q4H PRN PRN Reason: FEVER/PAIN Last Admin: 07/20/17 22:31 Dose: 650 mg Diphenhydramine HCl (Benadryl Iv*) 25 mg IV Q6H [facility] Last Admin: 07/21/17 08:41 Dose: 25 mg Sodium Chloride (Ns 0.9% 1000 Ml*) 1,000 mls @ 100 mls/hr IV PER RATE [facility] Last Admin: 07/20/17 19:24 Dose: 100 mls/hr Potassium Chloride (Potassium Chloride 10 Meq/50 Ml Ivpremix*) 10 meq in 50 mls @ 50 mls/hr IV Q1H [facility] Stop: 07/21/17 11:59 Metoclopramide HCl (Reglan Iv*) 10 mg IV SLOW PU AC [facility] Last Admin: 07/21/17 08:40 Dose: 10 mg Ondansetron HCl (Zofran Inj*) 4 mg IV Q6H PRN PRN Reason: NAUSEA Last Admin: 07/21/17 03:17 Dose: 4 mg Pantoprazole Sodium (Protonix Iv*) 40 mg IV Q12H [facility] Last Admin: 07/21/17 00:23 Dose: 40 mg Pyridoxine HCl (Vitamin B6 Tab*) 25 mg PO Q8H [facility] Last Admin: 07/21/17 08:44 Dose: 25 mg Sucralfate (Carafate*) 1 gm PO 0600,1100,1600,2100 [facility] Vital Signs 07/21/17 07/21/17 07/21/17 03:45 07:27 08:41 Temperature 98.4 F Pulse Rate 73 Respiratory 18 20 16 Rate Blood Pressure 114/78 (mmHg) O2 Sat by Pulse 100 Oximetry Oxygen Devices in Use Now: None Appearance: Young lady lying in bed in NAD. Eyes: No Scleral Icterus Ears/Nose/Mouth/Throat: Mucous Membranes Moist Neck: Trachea Midline Respiratory: Symmetrical Chest Expansion and Respiratory Effort, Clear to Auscultation Cardiovascular: NL Sounds; No Murmurs; No JVD, RRR Abdominal: - - Soft, mild epigastric pain, NG, NR, BS+ Extremities: No Edema Neurological: Alert and Oriented x 3, NL Muscle Strength and Tone Lines/Tubes/Other Access: Clean, Dry and Intact Peripheral IV Nutrition: Taking PO's Result Diagrams: 07/21/17 05:16 07/21/17 05:16 Assess/Plan/Problems-Billing Assessment: Ms. Pedro Sanhcez is a 31yo F , 16 weeks that presents to ED once again with c/o epigastric pain, N/V. - Patient Problems (1) Epigastric pain Comment: - Etiology is unclear. - She's in her 2nd trimester now and although still possible, HG is less likely and should be subsiding by now. - Continue Metoclopramide, Zofran, Pyridoxine, sucralfate, dyphenydramine, and pantoprazole. - GI input appreciated - plan for EGD later today. (2) Comment: - Appreciate OBGYN input. - US appreciated - no issues with . (3) DVT prophylaxis Comment: - SCDs. (4) Full code status Status and Disposition: Change to inpatient, as patient will require >48h for symptom relief.
[2017-07-21] MEDS: NS 0.9% 1000 ML* 1,000 ML IV SCH (09:50)
[2017-07-21] MEDS: KCL 10 MEQ/50 ML IVPREMIX* 10 MEQ/50 ML BAG IV SCH ×3 (09:51→14:35)
[2017-07-21] MEDS: Sucralfate TAB* 1 GM PO SCH ×3 (11:49→22:24)
[2017-07-21] MEDS ORDERED: fentaNYL* 50 MCG/ML 2 ML VIAL (100 MCG VIAL) ONE (11:50)
[2017-07-21] MEDS ORDERED: KCL 10 MEQ/50 ML IVPREMIX* 10 MEQ/50 ML BAG ONE (14:29)
--- NOTE | 2017-07-21 14:38 | PRO ---
DATE OF PROCEDURE: 07/21/2017 - ROOM #[id number] PROCEDURE PERFORMED: Upper endoscopy with CLOtest gastric biopsy. MEDICINE USED: Fentanyl 50 mcg IV. HISTORY: This is a 31-year-old woman, currently in the second trimester of her who has had refractory abdominal pain, nausea, and vomiting off and on for about six weeks. Her evaluation has included ultrasound and laboratory data, all of which have been largely unremarkable. She has failed symptomatic care with antiemetics and acid reducers. After careful discussions with her in the presence of an realtime court reporter, as well as her ALGORITHM DESIGN ENGINEER, it was recommended to undergo an upper endoscopy to rule out a dyspeptic lesion. PROCEDURE: The procedure again was discussed with the patient. We did utilize a Portuguese speaking realtime court reporter, given the fact that the patient is only Portuguese speaking. Risks and benefits were discussed, including specific issues regarding her and sedatives. Consent was obtained. The patient was placed in the left lateral decubitus position and Fentanyl was administered. A video pediatric gastroscope was inserted in the oropharynx (this instrument was chosen as we could not give Midazolam and we thought this would be more comfortable for the patient) and advanced into the esophagus. The esophagus, stomach, and duodenum to the second portion were visualized. The patient tolerated the procedure generally well and there were no immediate complications. FINDINGS: The esophagus was normal. There was no evidence of erosive disease or stricture. The stomach was entered. There was a little bit of bile in the stomach, but no blood. Upon retroflexion, I did not appreciate a hiatal hernia. There was some erythema in the fundus, likely indicative of retching that the patient has had off and on for a while. There was no ulceration or gastritis. The pylorus was normal and patent. The duodenal bulb was normal and the second to third portion of the duodenum was normal with a normal folding pattern. The gastroscope was then brought back into the stomach and a CLOtest biopsy was obtained. CONCLUSION: Normal upper endoscopy, CLOtest biopsy obtained. RECOMMENDATION: The biopsy will be followed up on. Again, I do not have an explanation for the patient's symptoms, but hopefully as the advances this will resolve. [id number]/CPS #: [id number] [facility]
[2017-07-21] MEDS: Acetaminophen TAB* 325 MG PO PRN ×2 (16:26→22:27)
[2017-07-21] MEDS ORDERED: fentaNYL* 50 MCG/ML 2 ML VIAL (100 MCG VIAL) IV SLOW PU ONE (16:33)
[2017-07-21] MEDS ORDERED: Acetaminophen SUPP* 650 MG SUPP PR PRN (21:59)
[2017-07-22] MEDS: Pyridoxine TAB* 50 MG PO SCH ×3 (01:13→17:00)
[2017-07-22] MEDS: Pantoprazole IV* 40 MG IV SCH ×2 (01:14→12:55)
[2017-07-22] MEDS: diPHENhydraMINE IV* 50 MG/ML 1 ml VIAL (BENADRYL) IV SCH ×4 (03:02→22:36)
[2017-07-22] MEDS: Acetaminophen TAB* 325 MG PO PRN (05:11)
[2017-07-22] MEDS: Sucralfate TAB* 1 GM PO SCH ×4 (05:12→22:36)
[2017-07-22] MEDS: Ondansetron INJ* 2 MG/ML VIAL IV PRN (05:12)
[2017-07-22] MEDS: Metoclopramide IV* 5 MG/ML 2 ML VIAL IV SLOW PU SCH ×3 (10:00→17:03)
--- NOTE | 2017-07-22 14:37 | PN ---
Subjective Date of Service: 07/22/17 Interval History: HOSPITALIST PROGRESS NOTE Patient seen and examined at bedside. She feels a little better today. Still has epigastric pain and nausea, but less intense. Does not want liquid diet, wants to try to eat chicken breast and mashed potatoes. Family History: Unchanged from Admission Social History: Unchanged from Admission Past Medical History: Unchanged from Admission Objective Active Medications: Acetaminophen (Tylenol Tab*) 650 mg PO Q4H PRN PRN Reason: FEVER/PAIN Last Admin: 07/22/17 05:11 Dose: 650 mg Acetaminophen (Tylenol Supp*) 650 mg TN Q4H PRN PRN Reason: FEVER/PAIN Diphenhydramine HCl (Benadryl Iv*) 25 mg IV Q6H [facility] Last Admin: 07/22/17 10:28 Dose: 25 mg Potassium Chloride 20 meq/ (Lactated Ringer's) 1,010 mls @ 101 mls/hr IVPB Q10H [facility] Last Admin: 07/22/17 10:27 Dose: 101 mls/hr Metoclopramide HCl (Reglan Iv*) 10 mg IV SLOW PU AC [facility] Last Admin: 07/22/17 12:55 Dose: 10 mg Ondansetron HCl (Zofran Inj*) 4 mg IV Q6H PRN PRN Reason: NAUSEA Last Admin: 07/22/17 05:12 Dose: 4 mg Pantoprazole Sodium (Protonix Iv*) 40 mg IV Q12H [facility] Last Admin: 07/22/17 12:55 Dose: 40 mg Pyridoxine HCl (Vitamin B6 Tab*) 25 mg PO Q8H [facility] Last Admin: 07/22/17 10:24 Dose: 25 mg Sucralfate (Carafate*) 1 gm PO 0600,1100,1600,2100 [facility] Last Admin: 07/22/17 10:25 Dose: 1 gm Vital Signs 07/22/17 07/22/17 07/22/17 07:33 08:00 10:28 Temperature 98.2 F Pulse Rate 81 Respiratory 20 14 14 Rate Blood Pressure 103/63 (mmHg) O2 Sat by Pulse 99 Oximetry Oxygen Devices in Use Now: None Appearance: Young lady lying in bed in NAD. Eyes: No Scleral Icterus Ears/Nose/Mouth/Throat: Mucous Membranes Moist Neck: Trachea Midline Respiratory: Symmetrical Chest Expansion and Respiratory Effort, Clear to Auscultation Cardiovascular: NL Sounds; No Murmurs; No JVD, RRR Abdominal: - - Mild epigastric tenderness, NG, NR, BS+ Extremities: No Edema Neurological: Alert and Oriented x 3, NL Muscle Strength and Tone Lines/Tubes/Other Access: Clean, Dry and Intact Peripheral IV Nutrition: Taking PO's Result Diagrams: 07/21/17 05:16 07/21/17 05:16 Assess/Plan/Problems-Billing Assessment: Ms. Pedro Sanchez is a 31yo F , 16 weeks that presents to ED once again with c/o epigastric pain, N/V. - Patient Problems (1) Epigastric pain Comment: - Etiology is unclear. - She's in her 2nd trimester now and although still possible, HG is less likely and should be subsiding by now. - EGD was normal and NERIS test was negative. - Continue Metoclopramide, Zofran, Pyridoxine, sucralfate, dyphenydramine, and pantoprazole. - She feels a little better today and wants to try solid diet. (2) Comment: - Appreciate OBGYN input. - US appreciated - no issues with . (3) DVT prophylaxis Comment: - SCDs. (4) Full code status Status and Disposition: Change to inpatient, as patient will require >48h for symptom relief. Anticipate d/c in AM if able to tolerate diet.
[2017-07-23] MEDS: Pyridoxine TAB* 50 MG PO SCH ×2 (03:13→09:46)
[2017-07-23] MEDS: diPHENhydraMINE IV* 50 MG/ML 1 ml VIAL (BENADRYL) IV SCH ×2 (03:13→12:24)
[2017-07-23] MEDS: Pantoprazole IV* 40 MG IV SCH (03:14)
[2017-07-23] MEDS: Ondansetron INJ* 2 MG/ML VIAL IV PRN (03:23)
[2017-07-23] MEDS: Sucralfate TAB* 1 GM PO SCH ×2 (05:22→12:24)
[2017-07-23 08:04] VITALS: BP 110/64
[2017-07-23] MEDS: Metoclopramide IV* 5 MG/ML 2 ML VIAL IV SLOW PU SCH (12:24)
--- NOTE | 2017-07-24 01:55 | DS ---
CC: Dr. Fito Zheng, [place], phone number# [phone] DISCHARGE SUMMARY: DATE OF ADMISSION: 07/20/17 DATE OF DISCHARGE: 07/23/17 TELECOM ENGINEER: Dr. Fito Zheng. DISCHARGE DIAGNOSES: 1. Recurrent epigastric pain, nausea and vomiting of unclear etiology, maybe related to hyperemesis gravidarum. 2. 16-week . MEDICATION LIST: 1. Acetaminophen 650 mg p.o. q.4 hours p.r.n. pain or fever. 2. Benadryl 25 mg p.o. q.6 hours p.r.n. nausea and vomiting. 3. Metoclopramide 10 mg p.o. before meals. 4. Omeprazole 40 mg p.o. daily. 5. Pyridoxine 25 mg p.o. q.8 hours. 6. Sucralfate 1 g p.o. before meals and at bedtime. HOSPITAL COURSE: Ms. Pedro Sanchez is a 31-year-old lady with a past medical history as stated abo ve that presented to the emergency room with complaints of epigastric pain, nausea, and vomiting. T he patient has been admitted multiple times to [facility] in May. She was also seen in [facility] and [facility] with similar complaints. She has had numerous ultrasounds that showed no acute abnormalities. At this time, she was once again seen by GI and as now she is already out of her first trimester and symptoms persisted, GI consulted with TELECOM ENGINEER and it was felt she would be safe to receive fentanyl for sedation for an upper endoscopy. The procedure was performed by Dr. Giang and she was described to have a normal esophagus with no e vidence of erosive disease or stricture. The stomach was found to have a little of bile, but no blo od. There was no hiatal hernia. There was some erythema in the fundus, likely indicative of retchi ng that the patient has had on and off. No ulceration or gastritis. The pylorus was normal and pat ent. The duodenal bulb was normal and the second to third portion of the duodenum was also normal w ith a normal folding pattern. The conclusion was that this was a normal upper endoscopy. CLOtest b iopsy was obtained and it was negative. Unfortunately, Dr. Giang did not have an explanation for the patient's symptoms, but he was hopeful that as the advances, this will resolve. Now that she is 16 weeks , this makes hyperemesis gravidarum more atypical but still possibl e. She received symptomatic treatment with PPI, sucralfate, metoclopramide, diphenhydramine, and sh e had symptomatic improvement. She was able to tolerate a solid diet with resolution of her pain an d her last episode of vomiting was more than 24 hours ago. The patient was agreeable with discharge home today and she was advised to follow up with her TELECOM ENGINEER, Dr. Zheng. I think she has not been ab le to do so, as she has been admitted here or to different places frequently. She did have a ultrasound performed and this was a limited scan that demonstrated no sonographic abnormalities and normal interval growth. The estimated gestational age was 16 weeks a nd 3 days. She was seen in consultation by TELECOM ENGINEER (Dr. Lizarraga). His impression was the patient was 16 weeks' with recurrent episodes of severe epigastric pain, nausea, and vomiting, no appar ent problems in the actual at this point. He felt it was unlikely hyperemesis gravidarum as the cause of her issues especially considering her gestation and as the symptoms resolved and rec urred weeks later. He agreed with symptomatic treatment with Reglan, Phenergan, and Zofran as neede d. Zofran is considered second line for , but very reasonable considering her persistent i ssues. GI may want to proceed with endoscopy considering the persistent symptoms. He did discuss f entanyl can be reasonably used in the second trimester for a brief procedure like this and antibioti cs for H. pylori would be reasonable, but as mentioned above, the CLOtest was negative. The patient is medically stable to be discharged home today to follow up with her TELECOM ENGINEER as outpatie nt. PHYSICAL EXAMINATION: Vital Signs: Temperature 98.9, heart rate is 74, respiratory rate is 21, oxy gen saturation is 98% on room air, and blood pressure is 110/64. General: The patient is a young l joey, sitting up in bed, in no acute distress. CVS: Normal S1, S2. Regular rate and rhythm. Chest : Breath sounds present bilaterally and no added sounds. Abdomen: Soft, nontender. Bowel sounds present. Extremities: No edema. Neuro: She is alert, awake, oriented x3. Able to move all 4 ext remities. DIET: Regular, bland diet. The patient is advised to avoid spicy foods. ACTIVITIES: As tolerated. DISPOSITION: To home. STATUS IN THE HOSPITAL: Inpatient. Please keep in mind this is a summarized version of this patient's hospital stay. If you need more information, please feel free to call me at [phone] or please obtain the full medical records. TIME SPENT: Approximately 45 minutes was spent to complete this discharge. [id number]/[facility] #: [id number]
== END 2017-07-23 12:20 | disposition home or self-care (01) | DRG 781 ==
LOC: ED 00:33 → MED 08:38 → OBSVTOIN 07-21 09:22
PROVIDERS: ADMIT Internal Medicine; ATTEND Internal Medicine
PROC: 0DB68ZX Excision of Stomach, Via Natural or Artificial Opening Endoscopic, Diagnostic (ICD-10-PCS; principal; 2017-07-22)
DX: O21.0 Mild hyperemesis gravidarum (principal); R40.2412 Glasgow coma scale score 13-15, at arrival to emergency department; Z83.6 Family history of other diseases of the respiratory system; Z3A.16 16 weeks gestation of pregnancy; Z90.49 Acquired absence of other specified parts of digestive tract; Z83.3 Family history of diabetes mellitus
CPT/HCPCS: 36415; 76700; 76815; 80048; 80053; 81003; 82150; 83690; 85025; 85610; 87077; 94760; 99156; A9270-GY; G0378; J1200; J2405; J2765; J3010; J3480

== ENCOUNTER 2017-08-06 20:34 | Emergency (ER) | payer SELFPAY ==
[2017-08-06] MEDS ORDERED: NS 0.9% 1000 ML* 1,000 ML IV ONE (21:20)
[2017-08-06] MEDS ORDERED: Metoclopramide IV* 5 MG/ML 2 ML VIAL IV ONE (21:22)
[2017-08-06 22:10] LABS: Hematocrit 38 % (35-47); Hemoglobin 12.8 g/dl (12.0-16.0); Mean Corpuscular HGB Conc 34 g/dl (31-36); Mean Corpuscular Hemoglobin 30 pg (27-31); Mean Corpuscular Volume 88 fL (80-97); Mean Platelet Volume 8 um3 (7.4-10.4); Red Blood Count 4.26 10^6/ul (4.0-5.4); Red Cell Distribution Width 14 % (10.5-15); White Blood Count 13.8 10^3/ul (3.5-10.8)
[2017-08-06 22:25] LABS: Albumin 3.8 g/dL (3.2-5.2); BUN/Creatinine Ratio 11.3 (8-20); Calcium 9.2 mg/dL (8.6-10.3); EGFR African American 175.4 (>60); EGFR Non-African American 136.4 (>60); Globulin 3.2 g/dL (2-4); Potassium 3.7 mmol/L (3.5-5.0); Total Bilirubin 0.5 mg/dL (0.2-1.0)
[2017-08-07 00:08] LABS: Urine Bacteria Absent (Absent); Urine Bilirubin Negative (Negative); Urine Glucose Negative (Negative); Urine Nitrite Negative (Negative)
[2017-08-07 00:43] VITALS: BP 125/76
--- NOTE | 2017-08-07 04:31 | ED ---
Jaime Douglass Thomas, scribed for Tsering Garcia MD on 08/06/17 at 2049 . Abdominal Pain/Female - HPI Summary HPI Summary: The pt is a 31 y/o F who is 18 weeks and presenting to the ED c/o epigastric abd pain and vomiting that began yesterday. The pt rates the pain 10/ 10. The pain is aggravated and alleviated by nothing. The patient has treated the pain with Tylenol [employer], as she does every day. She also complains of vomiting about every 30 minutes. She last vomited en route to [facility]. Today, the patient has only consumed water and juice. She takes Zofran TID and has been taking it since her discharge from [facility] on 07/23/17. Pt additionally c/o intermittent dysuria and hip pain. Pt denies vaginal bleeding and weight loss during the . The patient was admitted to [facility] from 07/20/17 to 07/23/17 for the same complaints. Previous to that, she was admitted to [facility] multiple times in May and has also been seen at [facility] and [place] with similar complaints. No acute abnormalities have been found on numerous ultrasounds, an upper endoscopy, and a CLOtest biopsy. She agrees that when she was discharged on 07/23/17, her admission was explained to her and that she was told by her doctors that there they have found no explanation for why she is vomiting or why she has pain. She reports that she has seen her OBGYN Dr. Zheng since being discharged from [facility]. PMHx: previously healthy. PSHx: cholecystectomy. SHx: no smoking, no alcohol use, no illicit drug use. FHx: DM. LNMP 01/02/17. G=8, P=4, A=3. She did not have significant abdominal pain or vomiting during her prior pregnancies. She is accompanied by her at this visit. Video translation services were provided by Carl with #[id number]. Patients medication reviewed this visit. - History of Current Complaint Chief Complaint: EDNauseaVomitDiarrh Stated Complaint: ABD PAIN/VOMITING Time Seen by Provider: 08/06/17 20:46 Hx Obtained From: Patient, Family/Hr Business Partner - is present Hx Last Menstrual Period: 01/02/17 ?: Yes Onset/Duration: Lasting Days - onset yesterday, Still Present Timing: Constant Severity Currently: Moderate Pain Intensity: 5 Pain Scale Used: 0-10 Numeric Location: Epigastric Radiates: No Aggravating Factor(s): Nothing Alleviating Factor(s): Nothing Associated Signs and Symptoms: Positive: Nausea, Vomiting, Other: - POS: intermittent dysuria, hip pain, epigastric abd pain; NEG: weight loss during , vaginal bleeding. Negative: Fever, Vaginal Bleeding Allergies/Adverse Reactions: Allergies Allergy/AdvReac Type Severity Reaction Status Date / Time No Known Allergies Allergy Verified 08/06/17 20:37 PMH/Surg Hx/FS Hx/Imm Hx Previously Healthy: No Endocrine/Hematology History: Denies: Hx Diabetes, Hx Anemia Cardiovascular History: Denies: Hx Hypertension Respiratory History: Denies: Hx Asthma GI History: Reports: Hx Gall Bladder Disease - Cholecystectomy Sensory History: Denies: Hx Contacts or Glasses, Hx Hearing Aid Opthamlomology History: Denies: Hx Contacts or Glasses - Surgical History Surgery Procedure, Year, and Place: cholecystectomy - Immunization History Date of Tetanus Vaccine: unk Date of Influenza Vaccine: unk Infectious Disease History: No Infectious Disease History: Denies: Hx Clostridium Difficile, History Other Infectious Disease, Traveled Outside the [place] in Last 30 Days - Family History Known Family History: Positive: Diabetes, Other - No CA. Negative: Hypertension - Social History Alcohol Use: None Hx Substance Use: No Substance Use Type: Reports: None Hx Tobacco Use: No Smoking Status (MU): Never Smoked Tobacco Review of Systems Negative: Fever, Other - NEG: weight loss during Positive: Abdominal Pain - epigastric, onset yesterday, Vomiting, Nausea Positive: dysuria - intermittent. Negative: other - NEG: vaginal bleeding Positive: Other - POS: hip pain All Other Systems Reviewed And Are Negative: Yes Physical Exam Triage Information Reviewed: Yes Vital Signs On Initial Exam: Initial Vitals Temp Pulse Resp BP Pulse Ox 97.2 F 106 18 127/76 98 08/06/17 20:38 08/06/17 20:38 08/06/17 20:38 08/06/17 20:38 08/06/17 20:38 Vital Signs Reviewed: Yes Appearance: Positive: Well-Appearing, Well-Nourished, Pain Distress Skin: Positive: Warm, Skin Color Reflects Adequate Perfusion Head/Face: Positive: Normal Head/Face Inspection Eyes: Positive: Conjunctiva Clear ENT: Positive: Normal ENT inspection Neck: Positive: Supple Respiratory/Lung Sounds: Positive: Clear to Auscultation, Breath Sounds Present , Other - No respiratory distress Cardiovascular: Positive: RRR, Pulses are Symmetrical in both Upper and Lower Extremities, Other - Brisk cap refill. Negative: Murmur Abdomen Description: Positive: Nontender, Soft Bowel Sounds: Positive: Present Musculoskeletal: Positive: Strength/ROM Intact Neurological: Positive: Sensory/Motor Intact, Alert, Oriented to Person Place, Time, Facial Symmetry, Speech Normal Psychiatric: Positive: Normal Diagnostics - Vital Signs Vital Signs Temp Pulse Resp BP Pulse Ox 08/06/17 20:38 97.2 F 106 18 127/76 98 - Laboratory Lab Results: Lab Results 08/06/17 08/06/17 08/06/17 Range/Units 21:55 21:55 21:55 WBC 13.8 H (3.5-10.8) 10^3/ul RBC 4.26 (4.0-5.4) 10^6/ul Hgb 12.8 (12.0-16.0) g/dl Hct 38 (35-47) % MCV 88 (80-97) fL MCH 30 (27-31) pg MCHC 34 (31-36) g/dl RDW 14 (10.5-15) % Plt Count 421 (150-450) 10^3/ul MPV 8 (7.4-10.4) um3 Neut % (Auto) 76.4 (38-83) % Lymph % (Auto) 18.5 L (25-47) % [place] % (Auto) 4.4 (1-9) % Eos % (Auto) 0.1 (0-6) % Baso % (Auto) 0.6 (0-2) % Absolute Neuts (auto) 10.5 H (1.5-7.7) 10^3/ul Absolute Lymphs (auto) 2.5 (1.0-4.8) 10^3/ul Absolute Monos (auto) 0.6 (0-0.8) 10^3/ul Absolute Eos (auto) 0 (0-0.6) 10^3/ul Absolute Basos (auto) 0.1 (0-0.2) 10^3/ul Absolute Nucleated RBC 0.01 10^3/ul Nucleated RBC % 0 APTT 27.3 (26.0-36.3) seconds Sodium (133-145) mmol/L Potassium (3.5-5.0) mmol/L Chloride (101-111) mmol/L Carbon Dioxide (22-32) mmol/L Anion Gap (2-11) mmol/L BUN (6-24) mg/dL Creatinine (0.51-0.95) mg/dL Est GFR ( Amer) (>60) Est GFR (Non-Af Amer) (>60) BUN/Creatinine Ratio (8-20) Glucose (70-100) mg/dL Lactic Acid 1.3 (0.5-2.0) mmol/L Calcium (8.6-10.3) mg/dL Total Bilirubin (0.2-1.0) mg/dL AST (13-39) U/L ALT (7-52) U/L Alkaline Phosphatase (34-104) U/L Total Protein (6.4-8.9) g/dL Albumin (3.2-5.2) g/dL Globulin (2-4) g/dL Albumin/Globulin Ratio (1-3) Urine Color Urine Appearance Urine pH (5-9) Ur Specific [place] (1.010-1.030) Urine Protein (Negative) Urine Ketones (Negative) Urine Blood (Negative) Urine Nitrate (Negative) Urine Bilirubin (Negative) Urine Urobilinogen (Negative) Ur Leukocyte Esterase (Negative) Urine WBC (Auto) (Absent) Urine RBC (Auto) (Absent) Ur Squamous Epith Cells (Absent) Urine Bacteria (Absent) Urine Glucose (Negative) Blood Type Antibody Screen 08/06/17 08/06/17 08/06/17 Range/Units 21:55 21:55 23:53 WBC (3.5-10.8) 10^3/ul RBC (4.0-5.4) 10^6/ul Hgb (12.0-16.0) g/dl Hct (35-47) % MCV (80-97) fL MCH (27-31) pg MCHC (31-36) g/dl RDW (10.5-15) % Plt Count (150-450) 10^3/ul MPV (7.4-10.4) um3 Neut % (Auto) (38-83) % Lymph % (Auto) (25-47) % [place] % (Auto) (1-9) % Eos % (Auto) (0-6) % Baso % (Auto) (0-2) % Absolute Neuts (auto) (1.5-7.7) 10^3/ul Absolute Lymphs (auto) (1.0-4.8) 10^3/ul Absolute Monos (auto) (0-0.8) 10^3/ul Absolute Eos (auto) (0-0.6) 10^3/ul Absolute Basos (auto) (0-0.2) 10^3/ul Absolute Nucleated RBC 10^3/ul Nucleated RBC % APTT (26.0-36.3) seconds Sodium 134 (133-145) mmol/L Potassium 3.7 (3.5-5.0) mmol/L Chloride 101 (101-111) mmol/L Carbon Dioxide 24 (22-32) mmol/L Anion Gap 9 (2-11) mmol/L BUN 6 (6-24) mg/dL Creatinine 0.53 (0.51-0.95) mg/dL Est GFR ( Amer) 175.4 (>60) Est GFR (Non-Af Amer) 136.4 (>60) BUN/Creatinine Ratio 11.3 (8-20) Glucose 94 (70-100) mg/dL Lactic Acid (0.5-2.0) mmol/L Calcium 9.2 (8.6-10.3) mg/dL Total Bilirubin 0.50 (0.2-1.0) mg/dL AST 16 (13-39) U/L ALT 37 (7-52) U/L Alkaline Phosphatase 67 (34-104) U/L Total Protein 7.0 (6.4-8.9) g/dL Albumin 3.8 (3.2-5.2) g/dL Globulin 3.2 (2-4) g/dL Albumin/Globulin Ratio 1.2 (1-3) Urine Color Yellow Urine Appearance Cloudy Urine pH 7.0 (5-9) Ur Specific [place] 1.021 (1.010-1.030) Urine Protein Negative (Negative) Urine Ketones 2+ H (Negative) Urine Blood Negative (Negative) Urine Nitrate Negative (Negative) Urine Bilirubin Negative (Negative) Urine Urobilinogen Negative (Negative) Ur Leukocyte Esterase Trace H (Negative) Urine WBC (Auto) Trace(0-5/hpf) (Absent) Urine RBC (Auto) Trace(0-2/hpf) (Absent) Ur Squamous Epith Cells Present H (Absent) Urine Bacteria Absent (Absent) Urine Glucose Negative (Negative) Blood Type A Positive Antibody Screen Negative Result Diagrams: 08/06/17 21:55 08/06/17 21:55 Lab Statement: Any lab studies that have been ordered have been reviewed, and results considered in the medical decision making process. - Additional Comments Diagnostic Additional Comments: Three was also a bedside ultrasound performed that shows HR 146. There was no interpretation by radiologist or ED physician. Abdominal Pain Fem Course/Dx - Course Course Of Treatment: The pt is a 31 y/o F who is 18 weeks and presenting to the ED c/o epigastric abd pain and vomiting that began yesterday. She has an extensive history of visits and admissions to [facility], [facility], and [place]. Workup including numerous ultrasounds and upper endoscopy have all been negative. In the ED the patient was given IV fluids and Reglan. Three was also a bedside ultrasound performed that shows HR 146. Bloodwork shows WBC 13.8. The patient is blood type A+. UA shows 2+ ketones, trace leukocyte esterase. Dr. Benoit, hospitalist, was made aware of the patient. The patient will be discharged from [facility]. - Provider Notifications Discussed Care Of Patient With: Chu Benoit Time Discussed With Above Provider: 22:40 Instructed by Provider To: Other - Dr. Benoit, hospitalist, was made aware of the patient. Discharge - Discharge Plan Condition: Stable Disposition: HOME Prescriptions: Metoclopramide TAB* [Reglan TAB*] 10 mg PO Q6H #20 tab Patient Education Materials: Metoclopramide (By mouth), Nausea and Vomiting in (ED), Abdominal Pain in (ED) Print Language: SWEDISH Referrals: Fito Zheng MD [Medical Doctor] - 2 Days Ashleigh Aranda PA [Primary Care Provider] - The documentation as recorded by the Jaime pina Thomas accurately reflects the service I personally performed and the decisions made by , Tsering Garcia MD.
== END 2017-08-07 00:42 | disposition home or self-care (01) ==
LOC: ED 20:34
DX: O26.892 Other specified pregnancy related conditions, second trimester (principal); R10.13 Epigastric pain; Z3A.18 18 weeks gestation of pregnancy
CPT/HCPCS: 36415; 80053; 81003; 81015; 83605; 85025; 85730; 86850; 86900; 86901; 87086; 96360; 96374; 99284; J2765